=== PATIENT | male | born 1945 | race Caucasian/White ===

== ENCOUNTER 2017-04-07 14:10 | Emergency (ER) | payer SELFPAY ==
[~2017-04-07] VITALS: Ht 167.6 cm; Wt 124.6 kg
[2017-04-07 14:23] VITALS: BP 146/82; PULSE 97; TEMP 36.8; O2SAT 96; Ht 167.6 cm; Wt 124.6 kg
== END 2017-04-07 15:50 | disposition left against medical advice (07) ==
LOC: C.EDB 14:13
DX: M79.671 Pain in right foot (principal); J02.9 Acute pharyngitis, unspecified; R51 Headache

== ENCOUNTER 2020-12-08 14:24 | Inpatient (IN) ==
[2020-12-08] MEDS ORDERED: SODIUM CHLORIDE 0.9% 1000ML 1,000 ML IV ONE (17:35)
--- NOTE | 2020-12-08 17:40 | Emergency Department Note ---
Impression & Plan AMS (altered mental status), Atrial tachycardia, Fall ED Provider Note NAME: HEIDE WHITE AGE: 75 SEX: M : 1945 ARRIVES VIA: Walk-In INFORMANT: Patient, Sister in law ED PROVIDER(S): Piter Dowd DO CHIEF COMPLAINT: Fever, confusion and weakness HPI: Patient is a 75-year-old male who presents the ER as he went over to his [id number]'s house on Tuesday. He was confused. She sent him back to his house and when she got over there he was laying on the ground confused. She found him to be febrile at 102. She got back into the house to cool down and he improved. He is still been persistently confused. He denies any headache or change in vision. No neck pain. No chest pain. No cough or runny nose. No shortness of breath. No belly pain, or nausea, vomiting, or diarrhea. No dysuria, urgency, or frequency. No other exacerbating or remitting factors. Sister notes that intermittently he becomes very shaky. This is abnormal for him as well. ROS: See above HPI for pertinent positives & negatives. A total of 10 systems reviewed and were otherwise negative. PAST MEDICAL HISTORY:See Below PAST SURGICAL HISTORY:See Below FAMILY HISTORY:See Below SOCIAL HISTORY:See Below HOME MEDICATIONS:See Below ALLERGIES:See Below VITALS:See Below PHYSICAL EXAMINATION: GENERAL: Sitting up in bed, alert, disheveled, chronically ill-appearing, shaky HEAD: NC/AT EYE EXAM: normal conjunctiva. PERRL and EOM's grossly intact. OROPHARYNX: no exudate, no erythema, lips, buccal mucosa, and tongue normal and mucous membranes are moist NECK: supple, no nuchal rigidity, no adenopathy, non-tender LUNGS: Clear to auscultation. Normal chest wall mechanics HEART: no murmurs, S1 normal and S2 normal ABDOMEN: abdomen soft, non-tender, normo-active bowel sounds, no masses, no rebound or guarding. BACK: Back is symmetrical on inspection and there is no deformity, no midline tenderness, no CVA tenderness. SKIN: no rashes and no bruising UPPER EXTREMITIES: upper extremities are grossly normal. LOWER EXTREMITIES: No pitting edema. NEURO EXAM: Oriented to person, not place or year moving all extremities, cranial nerves II-XII intact, normal speech, no weakness of arms, no weakness of legs. No drift. Finger to nose intact. Gross sensation intact. MEDICAL DECISION MAKING: Patient is a 75-year-old male who presents the ER for the above-stated complaint. IV was established blood work was obtained. Labs show no si gnificant anemia. INR was unremarkable.Lactate was 2. LFTs bilirubin troponin was negative. Pro-Chris was normal. UA was clean. Lyme Covid was negative. CT head and abdomen pelvis on room air chest x-ray unremarkable. As he is worsening confusion patient was given IV fluids. He was given a dose of Ativan. He was discussed with the hospitalist as I felt it was unsafe for him to go home with the worsening confusion and being found outside previously. Triage Nursing notes reviewed. Limited review of prior medical records performed Vital Signs: reviewed and remarkable for no significant abnormalities Differential diagnosis: Infection, dehydration, metabolic abnormality, hypo/hyperglycemia, electrolyte disturbance, anemia, hypoxia, cardiac sources, intracerebral event, toxicologic, neurologic, as well as other pathologies. ER treatment provided: See below Diagnostics interpreted by me: ECG: Sinus rhythm rate 89 Left axis No PVCs QTC 433 Poor baseline Cardiac Monitoring: An order was placed for continuous cardiac monitoring. The monitor shows a rate of 89 with sinus rhythm. Laboratory studies: As stated above and show below. Imaging studies: See below Consultation(s): Discussed with the hospitalist for further evaluation Procedures: none Critical Care: None Past Med/Surg History Social History Smoking Status: Never smoker Feels Safe at Home: Yes Allergies Allergies Allergy/AdvReac Type Severity Reaction Status Date / Time No Known Allergies Allergy Unverified 12/08/20 18:19 Home Meds Home Medications Medication Instructions Recorded Confirmed atorvastatin 20 mg tablet 20 mg PO QPM 12/08/20 12/08/20 fluticasone propionate 50 2 spray INTRANASAL DAILY 12/08/20 12/08/20 mcg/actuation nasal spray,suspension furosemide 40 mg tablet 40 mg PO BID 12/08/20 12/08/20 ibuprofen 200 mg tablet 200 mg PO AMPM 12/08/20 12/08/20 levothyroxine 125 mcg tablet 125 mcg PO QAM 12/08/20 12/08/20 losartan 25 mg tablet 25 mg PO QPM 12/08/20 12/08/20 mfajermlgdqw-wix-hyvor acid-vit 1 tab PO QAM 12/08/20 12/08/20 K-lycop 400 mcg-20 mcg-370 mcg tablet (One-A-Day Men's 50 Plus) potassium chloride 20 mEq 20 meq PO QAM 12/08/20 12/08/20 tablet,extended release(part/cryst) triamterene 75 0.5 tab PO QAM 12/08/20 12/08/20 mg-hydrochlorothiazide 50 mg tablet Results & Data (ED) Vital Signs Vital Signs - 24 hr 12/08/20 15:26 12/08/20 17:36 12/08/20 18:06 Temperature 36.8 C Temperature Source Skin Pulse Rate 81 Pulse Rate from SpO2 Sensor Respiratory Rate 18 Respiratory Effort / Characteristics Labored Non-Labored Blood Pressure 141/73 H Blood Pressure Mean 95 80 Pulse Oximetry 97 Oxygen Delivery Method Room Air Sepsis Recent Fever Within 48 Hours No Sepsis New/Unexplained Change in Mental Status No Sepsis Action Taken by Nursing No Action Required 12/08/20 18:30 12/08/20 18:36 12/08/20 19:02 Temperature Temperature Source Pulse Rate 103 H 106 H Pulse Rate from SpO2 Sensor Respiratory Rate 32 H 20 Respiratory Effort / Characteristics Non-Labored Blood Pressure 161/108 H Blood Pressure Mean 125 Pulse Oximetry Oxygen Delivery Method Sepsis Recent Fever Within 48 Hours Sepsis New/Unexplained Change in Mental Status Sepsis Action Taken by Nursing 12/08/20 19:06 12/08/20 19:19 12/08/20 19:31 Temperature Temperature Source Pulse Rate 107 H 105 H Pulse Rate from SpO2 Sensor 105 H Respiratory Rate 17 23 Respiratory Effort / Characteristics Non-Labored Blood Pressure 127/61 Blood Pressure Mean 83 Pulse Oximetry 94 Oxygen Delivery Method Sepsis Recent Fever Within 48 Hours Sepsis New/Unexplained Change in Mental Status Sepsis Action Taken by Nursing 12/08/20 19:36 12/08/20 19:46 12/08/20 20:06 Temperature Temperature Source Pulse Rate 107 H Pulse Rate from SpO2 Sensor 104 H Respiratory Rate 20 Respiratory Effort / Characteristics Non-Labored Non-Labored Blood Pressure 102/80 Blood Pressure Mean 87 Pulse Oximetry 94 Oxygen Delivery Method Sepsis Recent Fever Within 48 Hours Sepsis New/Unexplained Change in Mental Status Sepsis Action Taken by Nursing 12/08/20 20:08 12/08/20 20:28 12/08/20 20:30 Temperature Temperature Source Pulse Rate 155 H 108 H 104 H Pulse Rate from SpO2 Sensor Respiratory Rate 23 22 20 Respiratory Effort / Characteristics Non-Labored Blood Pressure Blood Pressure Mean Pulse Oximetry Oxygen Delivery Method Sepsis Recent Fever Within 48 Hours Sepsis New/Unexplained Change in Mental Status Sepsis Action Taken by Nursing 12/08/20 20:45 12/08/20 21:00 12/08/20 21:02 Temperature Temperature Source Pulse Rate 100 H 98 H Pulse Rate from SpO2 Sensor 99 H Respiratory Rate 22 15 Respiratory Effort / Characteristics Non-Labored Blood Pressure 94/71 L Blood Pressure Mean 78 Pulse Oximetry 95 Oxygen Delivery Method Sepsis Recent Fever Within 48 Hours Sepsis New/Unexplained Change in Mental Status Sepsis Action Taken by Nursing 12/08/20 21:18 12/08/20 21:30 12/08/20 21:48 Temperature Temperature Source Pulse Rate 106 H 95 H 98 H Pulse Rate from SpO2 Sensor 103 H 92 H Respiratory Rate 18 25 H 20 Respiratory Effort / Characteristics Blood Pressure Blood Pressure Mean Pulse Oximetry 95 95 Oxygen Delivery Method Sepsis Recent Fever Within 48 Hours Sepsis New/Unexplained Change in Mental Status Sepsis Action Taken by Nursing 12/08/20 22:00 12/08/20 22:15 12/08/20 22:31 Temperature Temperature Source Pulse Rate 142 H 97 H 100 H Pulse Rate from SpO2 Sensor 98 H 100 H Respiratory Rate 22 25 H 16 Respiratory Effort / Characteristics Blood Pressure 143/72 H Blood Pressure Mean 95 Pulse Oximetry 94 94 Oxygen Delivery Method Sepsis Recent Fever Within 48 Hours Sepsis New/Unexplained Change in Mental Status Sepsis Action Taken by Nursing 12/08/20 22:47 Temperature Temperature Source Pulse Rate 103 H Pulse Rate from SpO2 Sensor 104 H Respiratory Rate 41 H Respiratory Effort / Characteristics Blood Pressure 148/74 H Blood Pressure Mean 98 Pulse Oximetry 96 Oxygen Delivery Method Sepsis Recent Fever Within 48 Hours Sepsis New/Unexplained Change in Mental Status Sepsis Action Taken by Nursing Laboratory Data Result diagrams: 12/08/20 19:01 12/08/20 19:01 Lab Results 12/08/20 12/08/20 12/08/20 Range/Units 17:51 17:51 18:30 WBC (4.8-10.8) K/uL RBC (4.7-6.1) M/uL Hgb (14.0-18.0) g/dL Hct (42-52) % MCV (80-100) fL MCH (25-34) pg MCHC (32-36) g/dL RDW Std Deviation (36.4-46.3) fL RDW Coeff of [place] (11.5-14.5) % Plt Count (130-400) K/uL MPV (7.4-10.4) fL Immature Gran % (Auto) % Neut % (Auto) % Lymph % (Auto) % [place] % (Auto) % Eos % (Auto) % Baso % (Auto) % Neut # (Auto) (1.4-6.5) K/uL Lymph # (Auto) (1.2-3.4) K/uL [place] # (Auto) (0.11-0.59) K/uL Eos # (Auto) (0-0.5) K/uL Baso # (Auto) (0-0.2) K/uL Immature Gran # (Auto) (0.00-0.02) K/uL PT (9.0-12.0) Seconds INR (0.9-1.1) APTT (21.0-31.0) Seconds PTT Ratio Sodium (136-145) mmol/L Potassium (3.5-5.1) mmol/L Chloride (98-107) mmol/L Carbon Dioxide (21-32) mmol/L Anion Gap (3-11) BUN (7-18) mg/dl Creatinine (0.6-1.4) mg/dl Est Cr Clr Drug Dosing ml/min Est GFR ( Amer) ml/min Est GFR (Non-Af Amer) ml/min BUN/Creatinine Ratio (10-20) Glucose (70-99) mg/dl Lactate (0.4-2.0) mmol/L Calcium (8.5-10.1) mg/dl Magnesium (1.8-2.4) mg/dl Total Bilirubin (0.2-1) mg/dl AST (15-37) U/L ALT (12-78) U/L Alkaline Phosphatase (45-117) U/L Troponin I (0-0.045) ng/ml Total Protein (6.4-8.2) gm/dl Albumin (3.4-5.0) gm/dl Globulin (2.5-4.0) gm/dl Albumin/Globulin Ratio (0.9-2) Procalcitonin (0-0.5) ng/ml Urine Color Yellow Urine Appearance Clear (Clear) Urine pH 6.5 (4.5-7.5) Ur Specific [place] 1.016 (1.000-1.030) Urine Protein Negative (Negative) Urine Glucose (UA) Negative (Negative) Urine Ketones Negative (Negative) Urine Blood 1+ H (Negative) Urine Nitrite Negative (Negative) Urine Bilirubin Negative (Negative) Urine Urobilinogen Negative (Negative) Ur Leukocyte Esterase Negative (Negative) Urine WBC (Auto) 0 (0-5) /hpf Urine RBC (Auto) 5-10 H (0-4) /hpf U Hyaline Cast (Auto) 1-5 (0-5) /lpf U Epithel Cells (Auto) 5-10 H (0-5) /lpf Urine Bacteria (Auto) Negative (Negative) Lyme Disease IgG Ab (Negative) Lyme Disease IgM Ab (Negative) COVID-19 Eval Order Covid19 at [facility] SARS-CoV-2 (PCR) NEGATIVE (Negative) 12/08/20 12/08/20 12/08/20 Range/Units 19:01 19:01 19:01 WBC 8.94 (4.8-10.8) K/uL RBC 4.44 L (4.7-6.1) M/uL Hgb 14.4 (14.0-18.0) g/dL Hct 42.0 (42-52) % MCV 94.6 (80-100) fL MCH 32.4 (25-34) pg MCHC 34.3 (32-36) g/dL RDW Std Deviation 50.3 H (36.4-46.3) fL RDW Coeff of [place] 14.4 (11.5-14.5) % Plt Count 142 (130-400) K/uL MPV 10.4 (7.4-10.4) fL Immature Gran % (Auto) 0.1 % Neut % (Auto) 83.4 % Lymph % (Auto) 5.5 % [place] % (Auto) 9.7 % Eos % (Auto) 1.2 % Baso % (Auto) 0.1 % Neut # (Auto) 7.45 H (1.4-6.5) K/uL Lymph # (Auto) 0.49 L (1.2-3.4) K/uL [place] # (Auto) 0.87 H (0.11-0.59) K/uL Eos # (Auto) 0.11 (0-0.5) K/uL Baso # (Auto) 0.01 (0-0.2) K/uL Immature Gran # (Auto) 0.01 (0.00-0.02) K/uL PT (9.0-12.0) Seconds INR (0.9-1.1) APTT (21.0-31.0) Seconds PTT Ratio Sodium 137 (136-145) mmol/L Potassium 4.0 (3.5-5.1) mmol/L Chloride 101 (98-107) mmol/L Carbon Dioxide 31 (21-32) mmol/L Anion Gap 5.0 (3-11) BUN 31 H (7-18) mg/dl Creatinine 1.22 (0.6-1.4) mg/dl Est Cr Clr Drug Dosing 64.9 ml/min Est GFR ( Amer) 67.7 ml/min Est GFR (Non-Af Amer) 58.5 ml/min BUN/Creatinine Ratio 25.4 H (10-20) Glucose 133 H (70-99) mg/dl Lactate (0.4-2.0) mmol/L Calcium 8.9 (8.5-10.1) mg/dl Magnesium 2.2 (1.8-2.4) mg/dl Total Bilirubin 0.5 (0.2-1) mg/dl AST 54 H (15-37) U/L ALT 29 (12-78) U/L Alkaline Phosphatase 75 (45-117) U/L Troponin I < 0.015 (0-0.045) ng/ml Total Protein 7.6 (6.4-8.2) gm/dl Albumin 3.4 (3.4-5.0) gm/dl Globulin 4.2 H (2.5-4.0) gm/dl Albumin/Globulin Ratio 0.8 L (0.9-2) Procalcitonin 0.34 (0-0.5) ng/ml Urine Color Urine Appearance (Clear) Urine pH (4.5-7.5) Ur Specific [place] (1.000-1.030) Urine Protein (Negative) Urine Glucose (UA) (Negative) Urine Ketones (Negative) Urine Blood (Negative) Urine Nitrite (Negative) Urine Bilirubin (Negative) Urine Urobilinogen (Negative) Ur Leukocyte Esterase (Negative) Urine WBC (Auto) (0-5) /hpf Urine RBC (Auto) (0-4) /hpf U Hyaline Cast (Auto) (0-5) /lpf U Epithel Cells (Auto) (0-5) /lpf Urine Bacteria (Auto) (Negative) Lyme Disease IgG Ab Negative (Negative) Lyme Disease IgM Ab Negative (Negative) COVID-19 Eval Order SARS-CoV-2 (PCR) (Negative) 12/08/20 12/08/20 Range/Units 19:01 19:01 WBC (4.8-10.8) K/uL RBC (4.7-6.1) M/uL Hgb (14.0-18.0) g/dL Hct (42-52) % MCV (80-100) fL MCH (25-34) pg MCHC (32-36) g/dL RDW Std Deviation (36.4-46.3) fL RDW Coeff of [place] (11.5-14.5) % Plt Count (130-400) K/uL MPV (7.4-10.4) fL Immature Gran % (Auto) % Neut % (Auto) % Lymph % (Auto) % [place] % (Auto) % Eos % (Auto) % Baso % (Auto) % Neut # (Auto) (1.4-6.5) K/uL Lymph # (Auto) (1.2-3.4) K/uL [place] # (Auto) (0.11-0.59) K/uL Eos # (Auto) (0-0.5) K/uL Baso # (Auto) (0-0.2) K/uL Immature Gran # (Auto) (0.00-0.02) K/uL PT 9.8 (9.0-12.0) Seconds INR 1.0 (0.9-1.1) APTT 24.7 (21.0-31.0) Seconds PTT Ratio 0.9 Sodium (136-145) mmol/L Potassium (3.5-5.1) mmol/L Chloride (98-107) mmol/L Carbon Dioxide (21-32) mmol/L Anion Gap (3-11) BUN (7-18) mg/dl Creatinine (0.6-1.4) mg/dl Est Cr Clr Drug Dosing ml/min Est GFR ( Amer) ml/min Est GFR (Non-Af Amer) ml/min BUN/Creatinine Ratio (10-20) Glucose (70-99) mg/dl Lactate 2.0 (0.4-2.0) mmol/L Calcium (8.5-10.1) mg/dl Magnesium (1.8-2.4) mg/dl Total Bilirubin (0.2-1) mg/dl AST (15-37) U/L ALT (12-78) U/L Alkaline Phosphatase (45-117) U/L Troponin I (0-0.045) ng/ml Total Protein (6.4-8.2) gm/dl Albumin (3.4-5.0) gm/dl Globulin (2.5-4.0) gm/dl Albumin/Globulin Ratio (0.9-2) Procalcitonin (0-0.5) ng/ml Urine Color Urine Appearance (Clear) Urine pH (4.5-7.5) Ur Specific [place] (1.000-1.030) Urine Protein (Negative) Urine Glucose (UA) (Negative) Urine Ketones (Negative) Urine Blood (Negative) Urine Nitrite (Negative) Urine Bilirubin (Negative) Urine Urobilinogen (Negative) Ur Leukocyte Esterase (Negative) Urine WBC (Auto) (0-5) /hpf Urine RBC (Auto) (0-4) /hpf U Hyaline Cast (Auto) (0-5) /lpf U Epithel Cells (Auto) (0-5) /lpf Urine Bacteria (Auto) (Negative) Lyme Disease IgG Ab (Negative) Lyme Disease IgM Ab (Negative) COVID-19 Eval Order SARS-CoV-2 (PCR) (Negative) Administered Medications Discontinued Medications Sodium Chloride (Nss 1000ml) 1,000 mls @ 999 mls/hr IV .[id number] ONE Stop: 12/08/20 18:35 Last Infusion: 12/08/20 20:30 Dose: 999 mls/hr Documented by: [id number] Admin: 12/08/20 19:29 Dose: 999 mls/hr Documented by: [id number] Lorazepam (Ativan) 1 mg in 2 mls @ 2 mls/min IV NOW STA Stop: 12/08/20 20:41 Last Admin: 12/08/20 20:48 Dose: 2 mls/min Documented by: [id number] Ioversol (Optiray 320 100ml) 94 ml IV ONCE ONE Stop: 12/08/20 20:05 Last Admin: 12/08/20 20:04 Dose: 94 ml Documented by: [id number] Imaging Data Radiologist's Impression: Abdomen/Pelvis CT 12/08/20 17:35 CT SCAN OF THE ABDOMEN AND PELVIS WITH IV CONTRAST CLINICAL HISTORY: Sepsis. COMPARISON STUDY: No priors. TECHNIQUE: Following the IV administration of 94 cc of Optiray 320, CT scan of the abdomen and pelvis is performed from the lung bases to the proximal femora. Images are reviewed in the axial, sagittal, and coronal planes. IV contrast was administered without complication. A dose lowering technique was utilized adhering to the principles of ALARA. The examination is degraded by motion artifact, as well as by streak artifact from the arms which could not be elevated above the abdomen. FINDINGS: Lung bases: The heart is normal in size and without pericardial effusion. The lung bases are clear. There is a small hiatal hernia. Liver: The contrast-enhanced liver is normal in size, contour, and attenuation. There is no intrahepatic biliary ductal dilatation. The hepatic veins and portal veins are patent. Gallbladder: Unremarkable. Spleen: Normal in size and attenuation. Pancreas: Unremarkable. Adrenal glands: Unremarkable. Kidneys: The contrast enhanced kidneys demonstrate mild cortical atrophy and are without hydronephrosis. The kidneys enhance symmetrically. Abdominal vasculature: The abdominal aorta is normal in course and caliber noting advanced atherosclerotic calcification. Bowel: There is no bowel obstruction. Mild fecal retention is seen throughout the colon. The appendix is well-visualized and normal. Peritoneum: There is no intraperitoneal free air or abdominal ascites. Lymphadenopathy: None. Pelvic viscera: The prostate gland is mildly enlarged and heterogeneous noting median lobe hypertrophy. The bladder wall appears thickened and trabeculated indicating chronic outlet obstruction. Skeletal structures: The skeletal structures are osteopenic. There is moderate to advanced lumbosacral spondylosis. No lytic or blastic lesions are seen. IMPRESSION: 1. Significantly streak and motion compromised examination. 2. No acute infectious or inflammatory findings are identified in the abdomen or pelvis. 3. No bowel obstruction. 4. Additional findings as above. ACT 112: Negative or not required by law. Electronically signed by: German Adkins M.D. 12/08/2020 8:[address] 12/08/20 17:35 CT SCAN OF THE BRAIN WITHOUT IV CONTRAST CLINICAL HISTORY: Generalized weakness. Change in mental status. COMPARISON STUDY: No priors. TECHNIQUE: Unenhanced axial CT scan of the brain is performed from the vertex to the skull base. A dose lowering technique was utilized adhering to the prin ciples of ERIK. CT DOSE: 2045.93 mGy.cm FINDINGS: Brain parenchyma: There are age-related involutional changes noting moderate patchy subcortical and periventricular microangiopathic change. There is no hemorrhage, mass effect, or evidence of acute territorial ischemia by CT criteria. Mcguire-white matter differentiation is preserved. No extra-axial fluid collection is seen. Ventricles, sulci, cisterns: Prominent secondary to involutional change. Intracranial vasculature: There is atherosclerotic calcification of the cavernous carotid and vertebral arteries. Calvarium: Unremarkable. Sinuses and mastoids: The visualized paranasal sinuses are clear. The mastoid air cells are well pneumatized. Orbits: The bony orbits are grossly intact. IMPRESSION: There is no hemorrhage, mass effect, or evidence of acute territorial ischemia by CT criteria. ACT 112: Negative or not required by law. Electronically signed by: German Adkins M.D. 12/08/2020 8:37 PM Chest X-Ray 12/08/20 17:36 SINGLE VIEW CHEST CLINICAL HISTORY: Sepsis. FINDINGS: 2 AP, portable, semierect chest radiographs are obtained. No prior studies are available for comparison at the time of dictation. The examination is degraded by portable technique and patient rotation. The heart is enlarged. The pulmonary vasculature is noncongested. Scarring/atelectasis is noted at the lung bases. No airspace consolidation or large pleural effusion is identified. No pneumothorax is seen. The skeletal structures are osteopenic. The bony thorax is grossly intact. IMPRESSION: Cardiomegaly with no active disease in the chest. ACT 112: Negative or not required by law. Electronically signed by: German Adkins M.D. 12/08/2020 6:48 PM Discharge Plan Visit Data Chief Complaint: Fall Stated Complaint: FALL (SAT),FEVER,CONFUSION,SMALL BUMP ON HEAD ED Provider: Piter Dowd Discharge Problem: AMS (altered mental status), Atrial tachycardia, Fall Forms Stand Alone Forms: My [facility] Prescriptions Prescriptions: No Action furosemide 40 mg tablet 40 mg PO BID RF: 0 atorvastatin 20 mg tablet 20 mg PO QPM RF: 0 potassium chloride 20 mEq tablet,ER particles/crystals 20 meq PO QAM RF: 0 levothyroxine 125 mcg tablet 125 mcg PO QAM RF: 0 losartan 25 mg tablet 25 mg PO QPM RF: 0 triamterene-hydrochlorothiazid 75-50 mg tablet 0.5 tab PO QAM RF: 0 fluticasone propionate 50 mcg/actuation spray,suspension 2 spray INTRANASAL DAILY RF: 0 ibuprofen 200 mg Tablet 200 mg PO AMPM RF: 0 One-A-Day Men's 50 Plus 400-20-370 mcg Tablet 1 tab PO QAM RF: 0 Referrals Referrals: Shari Rosenbaum MD [Primary Care Provider] - Discharge Problem: AMS (altered mental status) Qualifiers: Altered mental status type: unspecified Qualified Code(s): R41.82 - Altered mental status, unspecified Fall Qualifiers: Encounter type: initial encounter Qualified Code(s): W19.XXXA - Unspecified fall, initial encounter
--- NOTE | 2020-12-08 18:50 | XRay Report ---
SINGLE VIEW CHEST CLINICAL HISTORY: Sepsis. FINDINGS: 2 AP, portable, semierect chest radiographs are obtained. No prior studies are available fo r comparison at the time of dictation. The examination is degraded by portable technique and patient rotation. The heart is enlarged. The pulmonary vasculature is noncongested. Scarring/atelectasis is noted at the lung bases. No airspace consolidation or large pleural effusion is identified. No pneumo thorax is seen. The skeletal structures are osteopenic. The bony thorax is grossly intact. IMPRESSION: Cardiomegaly with no active disease in the chest. ACT 112: Negative or not required by law. Electronically signed by: German Adkins M.D. 12/08/2020 6:48 PM
[2020-12-08 19:15] LABS: Basophils # (auto) 0.01 K/uL (0-0.2); Basophils % (auto) 0.1 %; Eosinophils # (auto) 0.11 K/uL (0-0.5); Eosinophils % (auto) 1.2 %; Hemoglobin 14.4 g/dL (14.0-18.0); Immature Granulocytes # (auto) 0.01 K/uL (0.00-0.02); Immature Granulocytes % (auto) 0.1 %; Lymphocytes # (auto) 0.49 K/uL (1.2-3.4); Lymphocytes % (auto) 5.5 %; Mean Corpuscular Hemoglobin 32.4 pg (25-34); Mean Corpuscular Hgb Conc 34.3 g/dL (32-36); Mean Corpuscular Volume 94.6 fL (80-100); Mean Platelet Volume 10.4 fL (7.4-10.4); Monocytes # (auto) 0.87 K/uL (0.11-0.59); Monocytes % (auto) 9.7 %; Neutrophils # (auto) 7.45 K/uL (1.4-6.5); Neutrophils % (auto) 83.4 %; Platelet Count 142 K/uL (130-400); RDW Coefficient of Variation 14.4 % (11.5-14.5); RDW Standard Deviation 50.3 fL (36.4-46.3); Red Blood Count 4.44 M/uL (4.7-6.1); White Blood Count 8.94 K/uL (4.8-10.8)
[2020-12-08 19:29] LABS: Partial Thromboplastin Ratio 0.9; Partial Thromboplastin Time 24.7 Seconds (21.0-31.0); Prothrombin Time 9.8 Seconds (9.0-12.0)
[2020-12-08 19:34] LABS: Alanine Aminotransferase 29 U/L (12-78); Albumin Level 3.4 gm/dl (3.4-5.0); Aspartate Aminotransferase 54 U/L (15-37); BUN Creatinine Ratio 25.4 (10-20); Blood Urea Nitrogen 31 mg/dl (7-18); Calcium 8.9 mg/dl (8.5-10.1); Carbon Dioxide 31 mmol/L (21-32); Chloride 101 mmol/L (98-107); Creatinine Clr Calc Pharmacy 64.9 ml/min; Est GFR (African American) 67.7 ml/min; Est GFR (Non-African American) 58.5 ml/min; Glucose 133 mg/dl (70-99); Magnesium 2.2 mg/dl (1.8-2.4); Sodium 137 mmol/L (136-145)
[2020-12-08 19:39] LABS: Albumin Globulin Ratio 0.8 (0.9-2); Alkaline Phosphatase 75 U/L (45-117); Bilirubin,Total 0.5 mg/dl (0.2-1); Globulin 4.2 gm/dl (2.5-4.0); Total Protein 7.6 gm/dl (6.4-8.2); Troponin I < 0.015 ng/ml (0-0.045)
[2020-12-08 19:50] LABS: Appearance Urine Clear (Clear); Bacteria Urine Automated Negative (Negative); Bilirubin Urine Negative (Negative); Blood Urine 1+ (Negative); Color Urine Yellow; Glucose Urine UA Negative (Negative); Ketones Urine Negative (Negative); Leukocyte Esterase Urine Negative (Negative); Nitrite Urine Negative (Negative); Protein Urine Negative (Negative); Specific Gravity Urine 1.016 (1.000-1.030); Urobilinogen Urine Negative (Negative); WBC Urine Automated 0 /hpf (0-5); pH Urine 6.5 (4.5-7.5)
[2020-12-08 20:02] LABS: Procalcitonin 0.34 ng/ml (0-0.5)
[2020-12-08] MEDS ORDERED: OPTIRAY 320 100ml IV ONE (20:04)
[2020-12-08 20:08] LABS: Lyme Ab IgG w/WB Rflx Negative (Negative); Lyme Ab IgM w/WB Rflx Negative (Negative)
--- NOTE | 2020-12-08 20:39 | CT Scan Report ---
CT SCAN OF THE BRAIN WITHOUT IV CONTRAST CLINICAL HISTORY: Generalized weakness. Change in mental status. COMPARISON STUDY: No priors. TECHNIQUE: Unenhanced axial CT scan of the brain is performed from the vertex to the skull base. A do se lowering technique was utilized adhering to the principles of ALARA. CT DOSE: 2045.93 mGy.cm FINDINGS: Brain parenchyma: There are age-related involutional changes noting moderate patchy subcortical and periventricular microangiopathic change. There is no hemorrhage, mass effect, or evidence of acute te rritorial ischemia by CT criteria. Mcguire-white matter differentiation is preserved. No extra-axial flu id collection is seen. Ventricles, sulci, cisterns: Prominent secondary to involutional change. Intracranial vasculature: There is atherosclerotic calcification of the cavernous carotid and vertebr al arteries. Calvarium: Unremarkable. Sinuses and mastoids: The visualized paranasal sinuses are clear. The mastoid air cells are well pneu matized. Orbits: The bony orbits are grossly intact. IMPRESSION: There is no hemorrhage, mass effect, or evidence of acute territorial ischemia by CT nuzhat rosas. ACT 112: Negative or not required by law. Electronically signed by: German Adkins M.D. 12/08/2020 8:37 PM
[2020-12-08] MEDS ORDERED: LORazepam 1 MG/2 ML VIAL IV STA (20:40)
--- NOTE | 2020-12-08 20:51 | CT Scan Report ---
CT SCAN OF THE ABDOMEN AND PELVIS WITH IV CONTRAST CLINICAL HISTORY: Sepsis. COMPARISON STUDY: No priors. TECHNIQUE: Following the IV administration of 94 cc of Optiray 320, CT scan of the abdomen and pelvi s is performed from the lung bases to the proximal femora. Images are reviewed in the axial, sagittal , and coronal planes. IV contrast was administered without complication. A dose lowering technique wa s utilized adhering to the principles of ALARA. The examination is degraded by motion artifact, as we ll as by streak artifact from the arms which could not be elevated above the abdomen. FINDINGS: Lung bases: The heart is normal in size and without pericardial effusion. The lung bases are clear. T here is a small hiatal hernia. Liver: The contrast-enhanced liver is normal in size, contour, and attenuation. There is no intrahepa tic biliary ductal dilatation. The hepatic veins and portal veins are patent. Gallbladder: Unremarkable. Spleen: Normal in size and attenuation. Pancreas: Unremarkable. Adrenal glands: Unremarkable. Kidneys: The contrast enhanced kidneys demonstrate mild cortical atrophy and are without hydronephros is. The kidneys enhance symmetrically. Abdominal vasculature: The abdominal aorta is normal in course and caliber noting advanced atheroscle rotic calcification. Bowel: There is no bowel obstruction. Mild fecal retention is seen throughout the colon. The appendix is well-visualized and normal. Peritoneum: There is no intraperitoneal free air or abdominal ascites. Lymphadenopathy: None. Pelvic viscera: The prostate gland is mildly enlarged and heterogeneous noting median lobe hypertroph y. The bladder wall appears thickened and trabeculated indicating chronic outlet obstruction. Skeletal structures: The skeletal structures are osteopenic. There is moderate to advanced lumbosacra l spondylosis. No lytic or blastic lesions are seen. IMPRESSION: 1. Significantly streak and motion compromised examination. 2. No acute infectious or inflammatory findings are identified in the abdomen or pelvis. 3. No bowel obstruction. 4. Additional findings as above. ACT 112: Negative or not required by law. Electronically signed by: German Adkins M.D. 12/08/2020 8:50 PM
[2020-12-09] MEDS ORDERED: LORazepam 2 MG/4 ML VIAL ONE (01:09)
[2020-12-09] MEDS ORDERED: LORazepam 1 MG/2 ML VIAL IV STA (01:11)
[2020-12-09] MEDS ORDERED: POLYETHYLENE (MIRALAX) 17 GM PACK PO PRN (02:31)
[2020-12-09] MEDS ORDERED: PIPERACILL/TAZOBAC CONSULT ACTIVE PRN (02:31)
[2020-12-09] MEDS ORDERED: NITROGLYCERIN SL 0.4 MG/TAB TAB SL PRN (02:31)
--- NOTE | 2020-12-09 02:37 | History and Physical Report ---
DATE OF ADMISSION: 12/08/2020. CHIEF COMPLAINT: Confusion and fall. HISTORY OF PRESENT ILLNESS: A 75-year-old male with past medical history significant for hypothyroidism, impaired fasting glucose, sleep apnea, emphysema, hypertension, venous insufficiency, history of adenomatous polyp of colon, who was brought in by his bdmpjo-pp-kcl because of confusion and fall. As per the wsuptp-it-qpe, the patient lives alone and his ambulatory status is not that great, does not use any walker or cane. The sohyec-qb-vpa lives about [address] his house. On Tuesday he drove to wuhrzr-aw-cyw's house and he seemed confused, did not make sense. She told him to go back to his house, but she followed him and she found him fall on the driveway. Then he was able to climb steps and go inside the house. As per svuayi-dp-dad, the patient does not remember falling down, but he remembers going into the house and she found him to have a high temperature of 102 degrees. She kept a cool blanket and cooled him and he seemed to be okay, though he was not back to his usual baseline, but he was still somewhat confused, but he was much better. The next day, she and another nkxsgrr-vv-jdc and the patient went outside to eat dinner on Tuesday and he was mostly back to baseline, but he was still somewhat confused, but he seemed okay and again today on Tuesday again, he was more confused and that is the reason she brought him here. Here in the ER, he is afebrile. Can tell his name, does not know where he is. Sometimes he just talks, blabbers, does not make any sense, but he seemed to understand simple commands. Hemodynamically stable. No leukocytosis. Electrolytes are okay. Glucose is okay. Lactate is 2. Procalcitonin 0.34. Urinalysis, no obvious infection. Lyme screen negative. SARS-CoV-2 PCR negative. Chest x-ray, no acute findings. CT of the head, no acute findings. CT abdomen and pelvis with IV contrast, no acute findings. Could not get any history from the patient. As per the sister in law, there were no complaints of any pain. No complaint of chest pain or back pain or neck pain or abdominal pain. No nausea or vomiting. Does not have any diarrhea. His appetite was okay and he was swallowing ok. ALLERGIES: No known drug allergies. PAST MEDICAL HISTORY: As mentioned above. PAST SURGICAL HISTORY: Colonoscopies, tonsillectomy. MEDICATIONS: The patient is on losartan, atorvastatin 20 mg p.o. daily, Flonase 2 sprays intranasal daily, Lasix 40 mg p.o. b.i.d., ibuprofen daily, levothyroxine 125 mcg p.o. daily, losartan 25 mg p.o. daily, multivitamins 1 tablet p.o. daily, potassium chloride 20 mEq p.o. daily, triamterene/hydrochlorothiazide 75/50 mg half tablet daily. FAMILY HISTORY: Significant for no family history on file. SOCIAL HISTORY: , currently lives alone. Quit smoking in 1997, smoked 1 pack a day for 30 years. No alcohol use. No drug use. REVIEW OF SYSTEMS: Unobtainable at this time. PHYSICAL EXAMINATION: GENERAL: The patient is somewhat drowsy. Oriented to name only. VITAL SIGNS: Temperature 36.8, pulse 99, respiratory rate 25, blood pressure 134/82, oxygen 93% on room air. HEENT: Pupils equal, round and reactive to light. Oral mucosa moist. NECK: No JVD, no neck masses. CARDIOVASCULAR: S1 and S2 heard. Regular rate and rhythm. No murmur, no gallop. RESPIRATORY SYSTEM: Normal AP diameter. No accessory muscle use. No wheezing, no crackles. ABDOMEN: Soft, bowel sounds present, nontender, no distention. CENTRAL NERVOUS SYSTEM: Alert and awake, oriented to name only. Speech is sometimes garbled, does not make sense. Obeys simple commands. Moves extremities. EXTREMITIES: No edema, no erythema. LABORATORY DATA: WBC 8.9, hemoglobin 14.4, hematocrit 42, platelets 142. PT 10.8, INR 1, APTT 24.7. Sodium 137, potassium 4, chloride 101, bicarbonate 31, BUN 31, creatinine 1.2, serum glucose 133. Lactate 2, calcium 8.9, magnesium 2.2, total bilirubin 0.5, AST 54, ALT 39, alkaline phosphatase 75. Troponin I less than 0.015. Procalcitonin 0.34. Urinalysis negative. Lyme screen negative. SARS-CoV-2 PCR negative. IMAGING DATA: Chest x-ray, no acute findings. CT of the head, no acute findings. CT of abdomen and pelvis with contrast, no acute findings. EKG DATA: Poor quality EKG. Normal sinus rhythm with rate of 89, QTc 433. ASSESSMENT AND PLAN: This is a 75-year-old male, who presents with ongoing confusion and falls. 1. Confusion and falls: Etiology unclear. CT of the head and ct abd/pelvis is unremarkable. Labs look okay. No obvious source of infection. We will get ABGs, lactic acid, ammonia levels, thiamine levels, vitamin B12 and folate levels, and also get MRI scan of the head. Consult neurology in the a.m. Empirically start him on IV Zosyn. Will also order eeg. Follow the cultures. The patient has history of obstructive sleep apnea, but as per the bdgrmz-qy-drc, he is not using any CPAP at home or oxygen at home. Later on the floor he was having apneic episodes placed on cpap.Await neurology inputs 2. History of hypertension: Continue his losartan and Maxzide and Lasix. Monitor the blood pressure. 3. Hypothyroidism: On Synthroid. 4. History of venous insufficiency of lower extremities: On diuretics and potassium supplements and monitor. 5. History of emphysema: Not on any medications. We will monitor. 6. Impaired fasting glucose. Follow the HbA1c levels. 7. Deep venous thrombosis prophylaxis: We will place him on Lovenox for now. DISPOSITION: Closely monitor in the med tele. PT/OT prior to discharge. Social service to help with discharge planning. Level 1 full code. Job ID: [id number] MTDD
[2020-12-09] MEDS ORDERED: PIPERACILLIN/TAZOBACTAM 4.5 GM in DEXTROSE 5% 100 ML IV ONE (02:45)
[2020-12-09] MEDS: SODIUM CHLORIDE 0.9% 1000ML 1,000 ML IV SCH ×3 (02:49→21:23)
[2020-12-09] MEDS ORDERED: ACETAMINOPHEN 1000 MG/100 ML IV IV PRN (02:59)
[2020-12-09 03:10] LABS: Allen Test POS (Pos); Base Excess ABG 3.4 mEq/L (-9-1.8); HCO3 ABG 27 mmol/L (19-24); Oxygen Saturation ABG 96.5 % (90-95); PCO2 ABG 37 mmHg (35-46); PO2 ABG 79 mmHg (80-95); pH ABG 7.48 (7.35-7.45)
[2020-12-09] MEDS: ACETAMINOPHEN 1,000 MG/100 ML VIAL IV PRN (03:15)
[2020-12-09] MEDS: LEVOTHYROXINE SODIUM 125 MCG TABLET PO SCH (06:20)
[2020-12-09] MEDS: ENOXAPARIN INJ 40 MG/0.4 ML SYR SQ SCH (06:20)
[2020-12-09 06:45] LABS: Basophils # (auto) 0.01 K/uL (0-0.2); Basophils % (auto) 0.1 %; Eosinophils # (auto) 0.09 K/uL (0-0.5); Eosinophils % (auto) 1.3 %; Hematocrit (blood only) 38.9 % (42-52); Hemoglobin 13.1 g/dL (14.0-18.0); Immature Granulocytes # (auto) 0.01 K/uL (0.00-0.02); Immature Granulocytes % (auto) 0.1 %; Lymphocytes # (auto) 0.35 K/uL (1.2-3.4); Lymphocytes % (auto) 5.1 %; Mean Corpuscular Hgb Conc 33.7 g/dL (32-36); Mean Corpuscular Volume 95.1 fL (80-100); Mean Platelet Volume 10.2 fL (7.4-10.4); Monocytes # (auto) 0.76 K/uL (0.11-0.59); Monocytes % (auto) 11.1 %; Neutrophils # (auto) 5.63 K/uL (1.4-6.5); Neutrophils % (auto) 82.3 %; Platelet Count 125 K/uL (130-400); RDW Coefficient of Variation 14.4 % (11.5-14.5); RDW Standard Deviation 50.8 fL (36.4-46.3); Red Blood Count 4.09 M/uL (4.7-6.1); White Blood Count 6.85 K/uL (4.8-10.8)
[2020-12-09 07:30] LABS: BUN Creatinine Ratio 22.8 (10-20); Calcium 8.2 mg/dl (8.5-10.1); Creatinine Clr Calc Pharmacy 73.3 ml/min; Est GFR (African American) 80.3 ml/min; Est GFR (Non-African American) 69.3 ml/min; Magnesium 2.3 mg/dl (1.8-2.4); Potassium 2.9 mmol/L (3.5-5.1)
[2020-12-09 07:36] LABS: Folate (Folic Acid) > 20.00 ng/ml (>5.38); Vitamin B12 936 pg/ml (193-986)
[2020-12-09] MEDS: FLUTICASONE PROPIONATE NA SPR 16 GM BTL SCH (08:33)
[2020-12-09] MEDS: NSS + 20MEQ KCL 20 MEQ/1,000 ML BAG IV SCH ×2 (08:33→16:32)
[2020-12-09] MEDS: POTASSIUM CHLORIDE CRTAB 20 MEQ TABCR PO SCH (08:34)
[2020-12-09] MEDS: TRIAMTERENE/HCTZ 37.5/25MG TAB PO SCH (08:34)
[2020-12-09] MEDS: FUROSEMIDE 40 MG TAB PO SCH ×2 (08:34→16:35)
[2020-12-09] MEDS: PIPERACILLIN/TAZOBACTAM 4.5 GM in DEXTROSE 5% 100 ML IV SCH ×2 (08:40→16:32)
[2020-12-09] MEDS ORDERED: MULTIVIT MIN FOLIC VIT K LYCOP PO SCH (09:00)
[2020-12-09] MEDS ORDERED: [UNRECOGNIZED DRUG - OTHER] PO SCH (09:00)
[2020-12-09 09:12] LABS: Phosphorus 3.7 mg/dl (2.5-4.9)
[2020-12-09] MEDS ORDERED: THIAMINE HCL 500 MG in 0.9 % SODIUM CHLORIDE 100 ML IV STA (09:50)
[2020-12-09 10:57] LABS: Thyroid Stimulating Hormone 1.26 uIu/ml (0.300-4.500)
[2020-12-09 12:21] LABS: Amphetamines+Metham, Urine Neg (Neg); Barbiturates, Urine Neg (Neg); Benzodiazepine, Urine Neg (Neg); Cocaine, Urine Neg (Neg); MDMA (Ecstacy), Urine Neg (Neg); Methadone, Urine Neg (Neg); Opiate, Urine Neg (Neg); Phencyclidine, Urine Neg (Neg)
--- NOTE | 2020-12-09 12:23 | Neurology Consultation ---
Date of Consultation December 09, 2020 Assessment & Plan (1) AMS (altered mental status): 1. MRI brain with and without -ordered but not completed 2. EEG- encephalopathy no seizure focus 3. if no other source of confusion found may need LP 4. TTE r/o cardiac source 5. toxic screen - may be late but might pickle sorter some OTC medication 6. appear to be improving somewhat. 7. cultures are pending 8. will need CTA head and neck - r/o vascular issues follow up with neurology 4-6 weeks, Elle Lo PAC (2) Fall: 1. PT/OT for discharge needs Supervising Physician Co-Signing Physician Notes I have seen and discussed above patient with Dr Ashu Diaz, neurology I have interviewed and examined this man and discussed his case with Elle Lo and reviewed the laboratory studies and imaging reports that are currently available The history suggests some form of febrile illness onset perhaps as long as a week or 2 ago as the patient does admit to taking kpzm-sur-fydqbpz medications for what he thought was the flu. This past Tuesday apparently appeared to be confused fell down had a temperature of 102 theoretically documented by his oeadry-pw-ycm and improved as his fever broke but then remained confused through the weekend has now been admitted to the hospital with negative CT scans of the head abdomen pelvis normal chest film and really unremarkable laboratory studies Toxicology screen has not been done We are awaiting an MRI An EEG shows normal rhythms with no potentially epileptiform patterns Exam shows what appears to be a low-grade agitated delirium with some perseveration yet once some preserved orientation to year and months that requires a lot of hesitation on his part to answer correctly He seems unaware of the pandemic, really is not sure where he is, knows his home is [place] and has some patchy memory for his szkmva-ey-feg's visits is falling down and then is quite confused about the temporal order of his illness but does recall going to the grocery store buying some snwi-mjk-epkdijk medications that he cannot recall and is adamant that he does not consume ethanol is a non-smoker and has not been ill other than the influenza-like illness He has no motor signs that I can come up with certainly is not somnolent denies any headaches no nuchal rigidity according to the nursing staff is able to ambulate with minimal assistance He dose not seem to be actively hallucinating At this point the diagnosis remains unestablished but the pattern looks like a low-grade toxic delirium and one wonders if he did not ingest a lot of anticholinergic-containing hixx-dib-rjtogdj medications in attempt to treat his upper respiratory illness. I certainly cannot exclude a low-grade viral encephalitis but his general demeanor would argue against this as in general those folks have headaches and are lethargic He is said to have a mild cardiomegaly so he needs an echocardiogram and depending on what we find on the MRI may need to go ahead with CT angiography and at some point we may even need to consider lumbar puncture but according to what I can glean from the chart and the nursing staff he seems to be improved from his status yesterday on antibiotics and fluids We may not have her come up with an answer as to what has caused this confusional period I would be curious about his baseline mental status but according to what I can glean from the chart he is said to be normal and no mention of cognitive impairment or a psychiatric disorder is present We will visit him tomorrow and perhaps things will be a little more clear and we will review the results of the MRI scan which hopefully will be done Ashu Diaz MD History of Present Illness Reason for Consultation: [facility] Requesting Physician: Anel Lora MD Attending Physician: Anel Lora MD History of Present Illness Stewart is a 75 year old male with PMH- hypothyroidism, impaired fasting glucose, sleep apnea, emphysema, HTN, venous insufficiency, adenomatous polyp of colon, who was brought to [facility] 12/09/2020 by his evoega-wo-xzc because of confusion and fall. He lives alone and his ambulatory status is not that great, does not use any walker or cane. She lives about [address] from his house. On Tuesday he drove to pwihhg-dc-ols's house and he seemed confused, did not make sense. She told him to go back to his house, followed him and found him fallenl on the driveway. He was able to climb steps and go inside the house. He didn't remember falling down, but he remembers going into the house and she found him to have a high temperature of 102 degrees. She kept a cool blanket and cooled him and he seemed to be okay, though he was not back to his usual baseline, but he was still somewhat confused, but he was much better. The following day she and another unvgizc-ui-rxa took Stewart outside to eat dinner on Tuesday and he was mostly back to baseline, but he was still somewhat confuse d, but he seemed okay. He was again found more confused today and decided to bring him in. He states he had the flu about 2 weeks ago and took alot of OTC medications. according to nursing walking to the bathroom with minimal assistance He is speaking clearly about things in the past but very confused about where he is and why he is here. denies CP, SOB, abdominal pain, one sided weakness, numbn ess tinlging, N, V. Allergies Allergy/AdvReac Type Severity Reaction Status Date / Time No Known Allergies Allergy Unverified 12/08/20 18:19 Home Medications Medication Instructions Recorded Confirmed Type atorvastatin 20 mg tablet 20 mg PO QPM 12/08/20 12/08/20 History fluticasone propionate 50 2 spray INTRANASAL DAILY 12/08/20 12/08/20 History mcg/actuation nasal spray,suspension furosemide 40 mg tablet 40 mg PO BID 12/08/20 12/08/20 History ibuprofen 200 mg tablet 200 mg PO AMPM 12/08/20 12/08/20 History levothyroxine 125 mcg tablet 125 mcg PO QAM 12/08/20 12/08/20 History losartan 25 mg tablet 25 mg PO QPM 12/08/20 12/08/20 History sandbyhqjltb-uvk-jujik acid-vit 1 tab PO QAM 12/08/20 12/08/20 History K-lycop 400 mcg-20 mcg-370 mcg tablet (One-A-Day Men's 50 Plus) potassium chloride 20 mEq 20 meq PO QAM 12/08/20 12/08/20 History tablet,extended release(part/cryst) triamterene 75 0.5 tab PO QAM 12/08/20 12/08/20 History mg-hydrochlorothiazide 50 mg tablet Patient History Social History Smoking Status: Unknown if ever smoked Preferred Language: Nigerien Communication Ability: Impaired Transcripter Required: No marital status: / Current Living Situation: Alone How many Children do You have: 0 Feels Safe at Home: Yes Assistive Devices: None Review of Systems Review of Systems: All systems reviewed & are unremarkable except as noted in HPI & below Physical Exam Physical Exam: Physical Exam: Constitutional: appearance over nourished Ears, Nose, Mouth and Throat: mucous membranes moist, no injection and skin normal, eyes normal Cardiovascular: normal S-1 and S-2 and regular rate and rhythm Respiratory: clear to auscultation (CTA) and no rales, rhonchi or wheeze Musculoskeletal: non pitting peripheral edema and good distal pulses Skin: no stigmata of neurocutaneous disease noted and normal and intact Eyes: extraocular muscles intact (EOMI) NEUROLOGIC EXAMINATION: Mental status: Alert and interactive Oriented hospital but does not know which one or the city, knows the month, year 2021, pen write with, button, ring Oriented to person Speech fluent with no evidence of aphasia Cranial Nerves smile eye brow symmetric Reflexes: Deep tendon reflexes were symmetrical and graded 2/5. Sensory: light or cool touch Coordination: finger to nose no bipass Gait/Stance: Posture sitting up in bed Motor: Negative for pronator drift of out stretched arms with eyes closed. 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 5/5, hip flex planter flex/ext 5/5 Results & Data ([facility]) Vital Signs (Past 12 Hours) Vital Signs Temp Pulse Pulse Resp BP Pulse Ox 12/09/20 10:54 37.0 C 70 18 126/78 98 12/09/20 07:18 74 12/09/20 06:41 74 12/09/20 06:10 36.8 C 78 20 105/67 93 12/09/20 03:40 38.5 C H 98 H 26 H 124/64 96 Laboratory Results Abnormal lab results 12/08/20 12/08/20 12/08/20 Range/Units 18:30 19:01 19:01 RBC 4.44 L (4.7-6.1) M/uL Hgb (14.0-18.0) g/dL Hct (42-52) % RDW Std Deviation 50.3 H (36.4-46.3) fL Plt Count (130-400) K/uL Neut # (Auto) 7.45 H (1.4-6.5) K/uL Lymph # (Auto) 0.49 L (1.2-3.4) K/uL [place] # (Auto) 0.87 H (0.11-0.59) K/uL ABG pH (7.35-7.45) ABG pO2 (80-95) mmHg ABG HCO3 (19-24) mmol/L ABG O2 Saturation (90-95) % ABG Base Excess (-9-1.8) mEq/L Potassium (3.5-5.1) mmol/L BUN 31 H (7-18) mg/dl BUN/Creatinine Ratio 25.4 H (10-20) Glucose 133 H (70-99) mg/dl Calcium (8.5-10.1) mg/dl AST 54 H (15-37) U/L Globulin 4.2 H (2.5-4.0) gm/dl Albumin/Globulin Ratio 0.8 L (0.9-2) Urine Blood 1+ H (Negative) Urine RBC (Auto) 5-10 H (0-4) /hpf U Epithel Cells (Auto) 5-10 H (0-5) /lpf 12/09/20 12/09/20 12/09/20 Range/Units 02:57 06:27 06:27 RBC 4.09 L (4.7-6.1) M/uL Hgb 13.1 L (14.0-18.0) g/dL Hct 38.9 L (42-52) % RDW Std Deviation 50.8 H (36.4-46.3) fL Plt Count 125 L (130-400) K/uL Neut # (Auto) (1.4-6.5) K/uL Lymph # (Auto) 0.35 L (1.2-3.4) K/uL [place] # (Auto) 0.76 H (0.11-0.59) K/uL ABG pH 7.48 H (7.35-7.45) ABG pO2 79 L (80-95) mmHg ABG HCO3 27 H (19-24) mmol/L ABG O2 Saturation 96.5 H (90-95) % ABG Base Excess 3.4 H (-9-1.8) mEq/L Potassium 2.9 L D (3.5-5.1) mmol/L BUN 24 H (7-18) mg/dl BUN/Creatinine Ratio 22.8 H (10-20) Glucose 130 H (70-99) mg/dl Calcium 8.2 L (8.5-10.1) mg/dl AST (15-37) U/L Globulin (2.5-4.0) gm/dl Albumin/Globulin Ratio (0.9-2) Urine Blood (Negative) Urine RBC (Auto) (0-4) /hpf U Epithel Cells (Auto) (0-5) /lpf Diagnostic Findings CT head-There is no hemorrhage, mass effect, or evidence of acute territorial ischemia by CT criteria. CXR- Cardiomegaly with no active disease in the chest. CT abdomen/pelvis-Significantly streak and motion compromised examination. No acute infectious or inflammatory findings are identified in the abdomen or pelvis. No bowel obstruction. normal EEG without evidence for focal or generalized encephalopathy without evidence for potentially epileptogenic activity (1) AMS (altered mental status) Altered mental status type: unspecified Qualified Code(s): R41.82 - Altered mental status, unspecified (2) Fall Encounter type: initial encounter Qualified Code(s): W19.XXXA - Unspecified fall, initial encounter
--- NOTE | 2020-12-09 13:14 | Electroencephalogram ---
EEG Procedure Note Date of Service December 09, 2020 Start / End Times Start Time: 1123 End Time: 1143 Referring Physician Ashu Diaz MD History Several days of fluctuating confusion with initial fever cause uncertain Home Medication List Medication Instructions Recorded Confirmed Type atorvastatin 20 mg tablet 20 mg PO QPM 12/08/20 12/08/20 History fluticasone propionate 50 2 spray INTRANASAL DAILY 12/08/20 12/08/20 History mcg/actuation nasal spray,suspension furosemide 40 mg tablet 40 mg PO BID 12/08/20 12/08/20 History ibuprofen 200 mg tablet 200 mg PO AMPM 12/08/20 12/08/20 History levothyroxine 125 mcg tablet 125 mcg PO QAM 12/08/20 12/08/20 History losartan 25 mg tablet 25 mg PO QPM 12/08/20 12/08/20 History kkhgugmmbwdd-mbk-idtny acid-vit 1 tab PO QAM 12/08/20 12/08/20 History K-lycop 400 mcg-20 mcg-370 mcg tablet (One-A-Day Men's 50 Plus) potassium chloride 20 mEq 20 meq PO QAM 12/08/20 12/08/20 History tablet,extended release(part/cryst) triamterene 75 0.5 tab PO QAM 12/08/20 12/08/20 History mg-hydrochlorothiazide 50 mg tablet Inpatient Medication List Enoxaparin Sodium (Enoxaparin Inj 40 Mg/0.4 Ml Syr) 40 mg SQ Q24H MIGUEL Stop: 01/08/21 05:59 Last Admin: 12/09/20 06:20 Dose: 40 mg Documented by: [id number] Fluticasone Propionate (Fluticasone Propionate Na Spr 16 Gm Btl) 2 sprays NA DAILY MIGUEL Stop: 01/08/21 08:59 Last Admin: 12/09/20 08:33 Dose: 2 sprays Documented by: [id number] Furosemide (Furosemide 40 Mg Tab) 40 mg PO BID17 MIGUEL Stop: 01/08/21 08:59 Last Admin: 12/09/20 08:34 Dose: 40 mg Documented by: [id number] Piperacillin Sod/Tazobactam (Sod 4.5 gm/ Dextrose) 120 mls @ 30 mls/hr IV Q8H MIGUEL; Protocol Stop: 12/11/20 07:59 Last Admin: 12/09/20 08:40 Dose: 30 mls/hr Documented by: [id number] Sodium Chloride (Nss 1000ml) 1,000 mls @ 125 mls/hr IV .Q8H MIGUEL Stop: 01/08/21 02:30 Last Admin: 12/09/20 12:33 Dose: Not Given Documented by: [id number] Infusion: 12/09/20 08:40 Dose: 0 mls/hr Documented by: [id number] Admin: 12/09/20 02:49 Dose: 125 mls/hr Documented by: [id number] Acetaminophen (Ofirmev) 1,000 mg in 100 mls @ 400 mls/hr IV Q8H PRN PRN Reason: Pain or Fever Stop: 12/12/20 03:14 Last Infusion: 12/09/20 03:35 Dose: 0 mls/hr Documented by: [id number] Admin: 12/09/20 03:15 Dose: 400 mls/hr Documented by: [id number] Potassium Chloride/Sodium Chloride (Normal Saline W/20 Meq Kcl) 20 meq in 1,000 mls @ 125 mls/hr IV .Q8H MIGUEL Stop: 12/10/20 07:59 Last Admin: 12/09/20 08:33 Dose: 125 mls/hr Documented by: [id number] Levothyroxine Sodium (Levothyroxine Sodium 125 Mcg Tablet) 125 mcg PO DAILYBB MIGUEL Stop: 01/08/21 06:29 Last Admin: 12/09/20 06:20 Dose: 125 mcg Documented by: [id number] Potassium Chloride (Potassium Chloride Crtab 20 Meq Tabcr) 20 meq PO QAM MIGUEL Stop: 01/08/21 08:59 Last Admin: 12/09/20 08:34 Dose: 20 meq Documented by: [id number] Triamterene/Hydrochlorothiazide (Triamterene/Hctz 37.5/25mg Tab) 0.5 tab PO QAM MIGUEL Stop: 01/08/21 08:59 Last Admin: 12/09/20 08:34 Dose: 0.5 tab Documented by: [id number] Discontinued Medications Sodium Chloride (Nss 1000ml) 1,000 mls @ 999 mls/hr IV .Q1H1M ONE Stop: 12/08/20 18:35 Last Infusion: 12/08/20 20:30 Dose: 999 mls/hr Documented by: [id number] Admin: 12/08/20 19:29 Dose: 999 mls/hr Documented by: [id number] Lorazepam (Ativan) 1 mg in 2 mls @ 2 mls/min IV NOW STA Stop: 12/08/20 20:41 Last Admin: 12/08/20 20:48 Dose: 2 mls/min Documented by: [id number] Lorazepam (Ativan) 1 mg in 2 mls @ 2 mls/min IV NOW STA Stop: 12/09/20 01:12 Last Admin: 12/09/20 01:26 Dose: Not Given Documented by: [id number] Piperacillin Sod/Tazobactam (Sod 4.5 gm/ Dextrose) 120 mls @ 240 mls/hr IV ONE ONE; Protocol Stop: 12/09/20 03:14 Last Infusion: 12/09/20 04:05 Dose: 0 mls/hr Documented by: [id number] Admin: 12/09/20 03:32 Dose: 240 mls/hr Documented by: [id number] Thiamine HCl 500 mg/ Sodium (Chloride) 105 mls @ 210 mls/hr IV NOW STA Stop: 12/09/20 10:19 Last Infusion: 12/09/20 11:16 Dose: 0 mls/hr Documented by: [id number] Admin: 12/09/20 10:39 Dose: 210 mls/hr Documented by: [id number] Ioversol (Optiray 320 100ml) 94 ml IV ONCE ONE Stop: 12/08/20 20:05 Last Admin: 12/08/20 20:04 Dose: 94 ml Documented by: [id number] Lorazepam (Lorazepam 2 Mg/4 Ml Vial) Confirm Administered Dose 2 mg .ROUTE .K- [facility] ONE Stop: 12/09/20 01:10 Last Increment: 12/09/20 01:14 Dose: 1 mg Documented by: [id number] Description This is a 21 electrode EEG with a single channel dedicated to limited EKG. The electrodes were placed in accordance with the International 10-20 system. This EEG was done as a bedside recording of patient is described as confused and poorly cooperative and was possibly free of muscle movement artifact despite video analysis which demonstrated a lot of movement and facial gesticulations and upper extremity movements. Under these conditions there is evidence for normal-appearing background in the alpha range of up to 11 Hz maximum frequency and of up to 30 V maximum amplitude. Polymorphic mid to upper frequency modest voltage theta activity seen predominantly central regions and symmetrical fashion. Beta activity seen bifrontally. Letter simulation evokes minimal driving response. No potentially epileptiform activity is noted Interpretation This is a normal EEG during wakefulness Clinical Correlation Is a normal EEG without evidence for focal or generalized encephalopathy without evidence for potentially epileptogenic activity Ashu Diaz MD Supervising Physician Co-Signing Physician Notes I have seen and discussed above patient with Dr Ashu Diaz, neurology
--- NOTE | 2020-12-09 13:33 | Hospitalist Progress Note ---
Date of Service December 09, 2020 Assessment & Plan (1) AMS (altered mental status): Plan: Presented with acute confusion/metabolic encephalopathy for some time Has had fever but no documented infective source yet Initial CT scan of the head has been negative and awaiting MRI B12 and folate level and TSH are unremarkable EEG has been pending We will ask for echocardiogram Appreciate neurology input and recommendation EEG has been pending and may need LP if no other cause for change in mental status and fever are found He remains pleasantly confused but otherwise stable Fever Intermittent for the last few days Highest temperature of 38.5 as of early this morning No infective source as of yet, no elevation of white count or no leukopenia, procalcitonin and lactic acid are normal, UA and chest x-ray unremarkable No signs and or symptoms of meningitis Intravenous Zosyn has been started Await cultures Hypokalemia Supplemented Monitor PRP and electrolytes (2) Ambulatory dysfunction: Plan: Has had recent fall Does not use any assistive device to walk around We will get PT and OT evaluation (3) Hypertension: Plan: Remains stable We will continue current medication (4) Hypothyroidism: Plan: We will continue with supplementation (5) Impaired glucose tolerance test: Plan: Will get hemoglobin A1c (6) History of emphysema: Plan: No shortness of breath at rest Does not take any medications for that DVT prophylaxis Subcu Lovenox CODE STATUS Full (7) Venous insufficiency: Admission and Anticipated Discharge Date Admission Date: December 08, 2020 Subjective 12/09/2020 The patient was seen and examined in medical telemetry unit He was admitted with acute confusion which has been going on for some time Has had ambulatory dysfunction with a recent fall Remains pleasantly confused otherwise does not have any neurological symptoms Denies any other significant symptoms Review of Systems Review of Systems: All systems reviewed and are unremarkable except as noted below Neurologic: Pleasantly confused but alert and awake. Moves all limbs equally without any focal neuro deficit except generalized weakness Physical Exam Physical Exam: Bed without any acute distress Constitutional: well developed, well nourished and + obese; not ill appearing Eyes: PERRL, conjunctivae normal, anicteric sclerae ENMT: external ear and nose normal, oropharynx normal Neck: trachea midline, no thyromegaly Respiratory: no respiratory distress and no cough Auscultation: lungs clear to auscultation bilaterally Cardiovascular: Rate/Rhythm: regular rate and regular rhythm; not tachycardic Heart Sounds: normal S1 and normal S2; no murmur Extremities: no edema Gastrointestinal (Abdomen): Inspection/Auscultation: normal bowel sounds; abdomen not distended Percussion/Palpation: abdomen soft; abdomen nontender Musculoskeletal: No acute arthritis in any joint Neurologic: Alert and awake. Pleasantly confused. Generally weak. No focal sensory and/or motor deficit appreciated. No photophobia and/or neck stiffness Results & Data Results & Data ([facility]) Vital Signs (Past 12 Hours) Vital Signs Temp Pulse Pulse Resp BP Pulse Ox 12/09/20 10:54 37.0 C 70 18 126/78 98 12/09/20 07:18 74 12/09/20 06:41 74 12/09/20 06:10 36.8 C 78 20 105/67 93 12/09/20 03:40 38.5 C H 98 H 26 H 124/64 96 Laboratory Results Short CBC 12/08/20 12/09/20 Range/Units 19:01 06:27 WBC 8.94 6.85 (4.8-10.8) K/uL Hgb 14.4 13.1 L (14.0-18.0) g/dL Hct 42.0 38.9 L (42-52) % Plt Count 142 125 L (130-400) K/uL BMP 12/08/20 12/09/20 19:01 06:27 Sodium 137 139 Potassium 4.0 2.9 L D Chloride 101 104 Carbon Dioxide 31 29 BUN 31 H 24 H Creatinine 1.22 1.06 Glucose 133 H 130 H Calcium 8.9 8.2 L Cardiac Enzymes 12/08/20 Range/Units 19:01 Troponin I < 0.015 (0-0.045) ng/ml Liver Function 12/08/20 Range/Units 19:01 Total Bilirubin 0.5 (0.2-1) mg/dl AST 54 H (15-37) U/L ALT 29 (12-78) U/L Alkaline Phosphatase 75 (45-117) U/L Albumin 3.4 (3.4-5.0) gm/dl Urine 12/08/20 Range/Units 18:30 Urine Color Yellow Urine Appearance Clear (Clear) Urine pH 6.5 (4.5-7.5) Ur Specific [place] 1.016 (1.000-1.030) Urine Protein Negative (Negative) Urine Glucose (UA) Negative (Negative) Medications Administered Current Inpatient Medications Atorvastatin Calcium (Atorvastatin 20 Mg Tab) 20 mg PO QPM MIGUEL Stop: 01/08/21 20:59 Enoxaparin Sodium (Enoxaparin Inj 40 Mg/0.4 Ml Syr) 40 mg SQ Q24H MIGUEL Stop: 01/08/21 05:59 Last Admin: 12/09/20 06:20 Dose: 40 mg Documented by: Fluticasone Propionate (Fluticasone Propionate Na Spr 16 Gm Btl) 2 sprays NA DAILY MIGUEL Stop: 01/08/21 08:59 Last Admin: 12/09/20 08:33 Dose: 2 sprays Documented by: Furosemide (Furosemide 40 Mg Tab) 40 mg PO BID17 MIGUEL Stop: 01/08/21 08:59 Last Admin: 12/09/20 08:34 Dose: 40 mg Documented by: Piperacillin Sod/Tazobactam (Sod 4.5 gm/ Dextrose) 120 mls @ 30 mls/hr IV Q8H MIGUEL; Protocol Stop: 12/11/20 07:59 Last Admin: 12/09/20 08:40 Dose: 30 mls/hr Documented by: Sodium Chloride (Nss 1000ml) 1,000 mls @ 125 mls/hr IV .Q8H MIGUEL Stop: 01/08/21 02:30 Last Admin: 12/09/20 12:33 Dose: Not Given Documented by: Acetaminophen (Ofirmev) 1,000 mg in 100 mls @ 400 mls/hr IV Q8H PRN PRN Reason: Pain or Fever Stop: 12/12/20 03:14 Last Infusion: 12/09/20 03:35 Dose: Infused Documented by: Potassium Chloride/Sodium Chloride (Normal Saline W/20 Meq Kcl) 20 meq in 1,000 mls @ 125 mls/hr IV .Q8H MIGUEL Stop: 12/10/20 07:59 Last Admin: 12/09/20 08:33 Dose: 125 mls/hr Documented by: Levothyroxine Sodium (Levothyroxine Sodium 125 Mcg Tablet) 125 mcg PO DAILYBB MIGUEL Stop: 01/08/21 06:29 Last Admin: 12/09/20 06:20 Dose: 125 mcg Documented by: Losartan Potassium (Losartan Potassium 25 Mg Tab) 25 mg PO QPM MIGUEL Stop: 01/08/21 20:59 Miscellaneous Information (Piperacill/Tazobac Consult Active) 1 ea N/A UD PRN PRN Reason: Consult Stop: 01/08/21 02:30 Nitroglycerin (Nitroglycerin Sl 0.4 Mg/Tab Tab) 0.4 mg SL UD PRN PRN Reason: Chest Pain Stop: 01/08/21 02:30 Polyethylene Glycol (Polyethylene (Miralax) 17 Gm Pack) 17 gm PO DAILY PRN PRN Reason: Constipation Stop: 01/08/21 02:30 Potassium Chloride (Potassium Chloride Crtab 20 Meq Tabcr) 20 meq PO QAM [facility] Stop: 01/08/21 08:59 Last Admin: 12/09/20 08:34 Dose: 20 meq Documented by: Triamterene/Hydrochlorothiazide (Triamterene/Hctz 37.5/25mg Tab) 0.5 tab PO QAM [facility] Stop: 01/08/21 08:59 Last Admin: 12/09/20 08:34 Dose: 0.5 tab Documented by: (1) AMS (altered mental status) Altered mental status type: unspecified Qualified Code(s): R41.82 - Altered mental status, unspecified
--- NOTE | 2020-12-09 16:49 | Electrocardiogram Report ---
Test Reason : Blood Pressure : / mmHG Vent. Rate : 089 BPM Atrial Rate : 089 BPM P-R Int : 142 ms QRS Dur : 086 ms QT Int : 356 ms P-R-T Axes : 069 -41 066 degrees QTc Int : 433 ms Poor data quality, interpretation may be adversely affected Normal sinus rhythm Left anterior fascicular block Borderline ECG No previous ECGs available Confirmed by Vance Vasquez ([id number]) on 12/09/2020 4:49:12 PM Referred By: Shari Rosenbaum Confirmed By:Vance Vasquez
--- NOTE | 2020-12-09 18:38 | XRay Report ---
ORBIT RADIOGRAPHS 3 VIEWS HISTORY: pre-MRI screening. COMPARISON: Head CT December 08, 2020. FINDINGS: There are no radiopaque foreign bodies identified within the orbits. IMPRESSION: No radiopaque foreign bodies identified within the orbits. ACT 112: Negative or not required by law. Electronically signed by: Papi Rebollar M.D. 12/09/2020 6:37 PM
[2020-12-09] MEDS ORDERED: GADOBUTROL 65ML VIAL IV ONE (19:03)
--- NOTE | 2020-12-09 19:25 | Magnetic Resonance Report ---
MRI OF THE BRAIN WITHOUT AND WITH IV CONTRAST CLINICAL HISTORY: confusion, garbled speech COMPARISON STUDY: Head CT December 08, 2020. TECHNIQUE: Utilizing a 1.5 Rose magnet and dedicated coil, multiplanar, multiecho imaging of the br ain was performed pre and postcontrast administration. IV administration of 10.5 mL of Gadavist cont rast was uneventful. FINDINGS: This exam is compromised by motion artifact although is diagnostic. There are no foci of re stricted diffusion to suggest acute infarct. No acute intracranial hemorrhage, midline shift or mass effect is present. Ventricular system is unremarkable. Basal cisterns are patent. There are no extra axial collections. There is mild to moderate atrophy. White matter T2 hyperintense foci suggest small vessel disease. There may be an old lacunar infarct within the periventricular left frontal lobe. No intracranial mass or pathologic enhancement is present. Calvarial signal is within normal limits. Th ere is trace fluid within the bilateral mastoid air cells. There is no evidence for sinusitis. IMPRESSION: 1. No acute intracranial findings. 2. No intracranial mass or pathologic enhancement. 3. Exam mildly compromised by motion artifact. 4. Mild to moderate cerebral atrophy. White matter T2 hyperintense foci suggestive of small vessel di sease. ACT 112: Negative or not required by law. Electronically signed by: Papi Rebollar M.D. 12/09/2020 7:23 PM
[2020-12-09] MEDS: LOSARTAN POTASSIUM 25 MG TAB PO SCH (20:38)
[2020-12-09] MEDS: ATORVASTATIN 20 MG TAB PO SCH (20:38)
[2020-12-09] MEDS: TAMSULOSIN HCL 0.4 MG CAP PO SCH (23:08)
[2020-12-10] MEDS: PIPERACILLIN/TAZOBACTAM 4.5 GM in DEXTROSE 5% 100 ML IV SCH ×4 (00:42→23:53)
[2020-12-10] MEDS: NSS + 20MEQ KCL 20 MEQ/1,000 ML BAG IV SCH (03:19)
[2020-12-10] MEDS: SODIUM CHLORIDE 0.9% 1000ML 1,000 ML IV SCH ×3 (04:46→15:18)
[2020-12-10] MEDS: ENOXAPARIN INJ 40 MG/0.4 ML SYR SQ SCH (05:37)
[2020-12-10] MEDS: LEVOTHYROXINE SODIUM 125 MCG TABLET PO SCH (05:37)
[2020-12-10 07:05] LABS: Hematocrit (blood only) 35.5 % (42-52); Hemoglobin 11.9 g/dL (14.0-18.0); Mean Corpuscular Hemoglobin 31.6 pg (25-34); Mean Corpuscular Hgb Conc 33.5 g/dL (32-36); Mean Corpuscular Volume 94.2 fL (80-100); Platelet Count 128 K/uL (130-400); RDW Coefficient of Variation 14.1 % (11.5-14.5); RDW Standard Deviation 48.8 fL (36.4-46.3); Red Blood Count 3.77 M/uL (4.7-6.1); White Blood Count 5.58 K/uL (4.8-10.8)
[2020-12-10 07:06] LABS: Basophils # (auto) 0.01 K/uL (0-0.2); Basophils % (auto) 0.2 %; Eosinophils # (auto) 0.23 K/uL (0-0.5); Eosinophils % (auto) 4.1 %; Immature Granulocytes # (auto) 0.01 K/uL (0.00-0.02); Immature Granulocytes % (auto) 0.2 %; Lymphocytes # (auto) 0.76 K/uL (1.2-3.4); Lymphocytes % (auto) 13.6 %; Monocytes # (auto) 0.55 K/uL (0.11-0.59); Monocytes % (auto) 9.9 %; Neutrophils # (auto) 4.02 K/uL (1.4-6.5)
[2020-12-10 07:13] LABS: Albumin Globulin Ratio 0.7 (0.9-2); Albumin Level 2.6 gm/dl (3.4-5.0); BUN Creatinine Ratio 16.7 (10-20); Bilirubin,Total 0.6 mg/dl (0.2-1); Calcium 7.7 mg/dl (8.5-10.1); Creatinine Clr Calc Pharmacy 91.2 ml/min; Est GFR (African American) 99.2 ml/min; Est GFR (Non-African American) 85.6 ml/min; Globulin 3.8 gm/dl (2.5-4.0); Potassium 3.1 mmol/L (3.5-5.1); Total Protein 6.4 gm/dl (6.4-8.2)
[2020-12-10 07:19] LABS: Estimated Average Glucose 120 mg/dl; Hemoglobin A1C 5.8 % (4.5-5.6)
[2020-12-10] MEDS: FLUTICASONE PROPIONATE NA SPR 16 GM BTL SCH (08:21)
[2020-12-10] MEDS: TRIAMTERENE/HCTZ 37.5/25MG TAB PO SCH (08:22)
[2020-12-10] MEDS: POTASSIUM CHLORIDE CRTAB 20 MEQ TABCR PO SCH (08:22)
[2020-12-10] MEDS: FUROSEMIDE 40 MG TAB PO SCH ×2 (08:23→16:17)
[2020-12-10] MEDS ORDERED: POTASSIUM CHLORIDE CRTAB 20 MEQ TABCR PO STA (09:22)
[2020-12-10 10:28] LABS: Ferritin 288.6 ng/ml (8-388)
[2020-12-10 14:08] LABS: Hemoglobin 13.1 g/dL (14.0-18.0)
--- NOTE | 2020-12-10 15:14 | Neurology Progress Note ---
Date of Service December 10, 2020 Assessment & Plan (1) AMS (altered mental status): Plan: 1. MRI brain with and without -no stroke 2. EEG- encephalopathy no seizure focus 3. still confused would go forward with LP 4. TTE r/o cardiac source- no valvular disease. no ASD 5. toxic screen - may be late but might shrimp picker some OTC medication 6. baseline would be helpful he is still confused and unable to keep focus on questions. 7. cultures resulted negative for growth 8. will need CTA head and neck - r/o vascular issues follow up with neurology 4-6 weeks, Elle Lo PAC (2) Fall: Plan: 1. PT/OT for discharge needs Admission and Anticipated Discharge Date Admission Date: December 08, 2020 Supervising Physician Co-Signing Physician Notes I have seen and discussed above patient with Dr Ashu Diaz, neurology I saw Mr. Miranda again today and at this point feel he is no better than he was yesterday and in fact is probably slightly worse. He is tangential disorganized knows he has been here 3 days knows it is November can come up with a date does not know the president and can give me some directions in [facility] but nothing that I would think would be adequate to make him able to operate a motor vehicle and he continues to perseverate about some automotive issues and the fact that he thinks his sister in law is going to pick him up tomorrow Rest of his exam shows no motor deficits no abnormal involuntary movements no nuchal rigidity and laboratory studies have not helped very much including a tox screen which is negative but it would not shrimp picker [id number] excessive amounts of antihistamines that he may have been taking to treat what he thinks was an upper respiratory tract infection This began with an infectious illness according to the history we have and I think we now need to go on for a lumbar puncture as the MRI has not shown anything the EEG is normal the tox screen is negative and routine labs have not revealed anything including a Lyme titer and a COVID-19 test This is going to be done under fluoroscopy with standard studies occluding some viral studies for West Nile virus and herpes The ultimate diagnosis is still elusive. And I do not know what his baseline status might be in terms of his intellectual function. If indeed he has been getting a little more eccentric or cognitively impaired for several months or over the past yearthen he could easily have been tipped over into a toxic encephalopathy by a mild viral infection or the effects of antihistaminics and now is suffering from a hospital psychosis but this needs to ba a diagnosis of exclusion and a viral encephalitis or other infectious or even a paraneoplasic process needs excluded Dr. Hernandez will be assuming the case tomorrow Ashu Diaz MD Subjective Stewart is a 75 year old male with PMH- hypothyroidism, impaired fasting glucose, sleep apnea, emphysema, HTN, venous insufficiency, adenomatous polyp of colon, who was brought to [facility] 12/09/2020 by his [id number] because of confusion and fall. He lives alone and his ambulatory status is not that great, does not use any walker or cane. She lives about [address] house. On Tuesday he drove to lriath-bd-wpu's house and he seemed confused, did not make sense. She told him to go back to his house, followed him and found him fallenl on the driveway. He was able to climb steps and go inside the house. He didn't remember falling down, but he remembers going into the house and she found him to have a high temperature of 102 degrees. She kept a cool blanket and cooled him and he seemed to be okay, though he was not back to his usual baseline, but he was still somewhat confused, but he was much better. The following day she and another [id number] took Stewart outside to eat dinner on Tuesday and he was mostly back to baseline, but he was still somewhat confused, but he seemed okay. He was again found more confused today and decided to bring him in. He states he had the flu about 2 weeks ago and took alot of OTC medications. according to nursing walking to the bathroom but unsteady. denies pain, new bowel or bladder issues. Review of Systems Review of Systems: All systems reviewed & are unremarkable except as noted in HPI & below Physical Exam Physical Exam: Physical Exam: Constitutional: appearance over nourished Ears, Nose, Mouth and Throat: mucous membranes moist, no injection and skin normal, eyes normal Cardiovascular: normal S-1 and S-2 and regular rate and rhythm Respiratory: course breath sounds Musculoskeletal: non pitting peripheral edema and good distal pulses Skin: no stigmata of neurocutaneous disease noted and normal and intact Eyes: extraocular muscles intact (EOMI) NEUROLOGIC EXAMINATION: Mental status: Alert and interactive Oriented today he is not oriented to hospital but does not know which one or the city, knows the month, year 2011, pen write with, can not identify button Oriented to person Speech fluent with no evidence of aphasia, rambles on about his past and his sister in law Cranial Nerves smile eye brow symmetric Reflexes: Deep tendon reflexes were symmetrical and graded 2/5. Sensory: light or cool touch Coordination: finger to nose no bipass Gait/Stance: Posture sitting up in bed Motor: Negative for pronator drift of out stretched arms with eyes closed. Strength: hand conference assistant biceps triceps 5/5, hip flex planter flex/ext 5/5 Results & Data ([facility]) Vital Signs (Past 12 Hours) Vital Signs Temp Pulse Pulse Resp BP BP Pulse Ox 12/10/20 15:03 79 12/10/20 14:56 36.8 C 70 18 142/93 H 96 12/10/20 10:57 36.2 C L 75 16 145/80 H 97 12/10/20 07:51 78 12/10/20 07:04 36.7 C 80 18 132/83 95 12/10/20 04:14 37.0 C 73 18 128/70 96 Laboratory Results Abnormal lab results 12/10/20 12/10/20 12/10/20 Range/Units 06:10 06:10 06:10 RBC 3.77 L (4.7-6.1) M/uL Hgb 11.9 L (14.0-18.0) g/dL Hct 35.5 L (42-52) % RDW Std Deviation 48.8 H (36.4-46.3) fL Plt Count 128 L (130-400) K/uL Lymph # (Auto) 0.76 L (1.2-3.4) K/uL Potassium 3.1 L (3.5-5.1) mmol/L Glucose (70-99) mg/dl Hemoglobin A1c 5.8 H (4.5-5.6) % Calcium 7.7 L (8.5-10.1) mg/dl Iron (35-175) mcg/dl TIBC (250-450) mcg/dl Transferrin (200-360) mg/dl Transferrin % Sat (20-50) % AST 43 H (15-37) U/L Albumin 2.6 L (3.4-5.0) gm/dl Albumin/Globulin Ratio 0.7 L (0.9-2) 12/10/20 12/10/20 12/10/20 Range/Units 06:10 13:57 13:57 RBC (4.7-6.1) M/uL Hgb 13.1 L (14.0-18.0) g/dL Hct 39.0 L (42-52) % RDW Std Deviation (36.4-46.3) fL Plt Count (130-400) K/uL Lymph # (Auto) (1.2-3.4) K/uL Potassium (3.5-5.1) mmol/L Glucose 124 H (70-99) mg/dl Hemoglobin A1c (4.5-5.6) % Calcium (8.5-10.1) mg/dl Iron 27 L (35-175) mcg/dl TIBC 185 L (250-450) mcg/dl Transferrin 131 L (200-360) mg/dl Transferrin % Sat 15 L (20-50) % AST (15-37) U/L Albumin (3.4-5.0) gm/dl Albumin/Globulin Ratio (0.9-2) Diagnostic Findings TTE- 55-60% no ASD MRI brain- No acute intracranial findings. No intracranial mass or pathologic enhancement. Exam mildly compromised by motion artifact. Mild to moderate cerebral atrophy. White matter T2 hyperintense foci suggestive of small vessel disease. (1) AMS (altered mental status) Altered mental status type: unspecified Qualified Code(s): R41.82 - Altered mental status, unspecified (2) Fall Encounter type: initial encounter Qualified Code(s): W19.XXXA - Unspecified fall, initial encounter
--- NOTE | 2020-12-10 15:21 | Hospitalist Progress Note ---
Date of Service December 10, 2020 Assessment & Plan (1) AMS (altered mental status): (2) Fever: (3) Ambulatory dysfunction: Plan: 75-year-old male with PMH of hypothyroidism, impaired fasting glucose, sleep apnea, emphysema, HTN, venous insufficiency, adenomatous polyp of colon was brought in 12/08 to our ED by his [id number]-[id number] Susie because of concern of confusion and fall. Patient lives alone and his ambulatory status is not that great but does not use any walker or cane per his MICHELLE. 2 days TA, MICHELLE noticed confusion and found him fall in the driveway. She also noted temperature of 102 degrees on the same day. Because he did not improve, he was brought to the ED. Per his MICHELLE, he is able to carry on meaningful conversation at baseline. #. AMS #. Fever Patient noted to be confused and one episode of fall 2 days DATA GOVERNANCE CONSULTANT Patient also noted to have temperature 102F at home. Temperature of 38.5C on 12/09. 12/08 pro-Chris negative. TSH WNL 12/09 MRI brain: No acute changes 12/09 EEG: Normal EEG without evidence of focal or generalized encephalopathy, without evidence of potentially epileptogenic activity. 12/10 echo: LV ejection fraction 55 to 60%, mild concentric LVH, grade 1 diastolic dysfunction. No evidence of atrial septal defect. Intermittent fever for last few days DATA GOVERNANCE CONSULTANT. No source of infection identified so far for fever. 12/08 blood cultureno growth after 24 hours. Follow-up with final culture. WBC, pro-Chris and LA are normal. UA and CXR are unremarkable. No signs/symptoms of meningitis. Continue with IV antibioticsZosyn 12/09. Patient more towards his baseline which is confirmed by his ijjsqi-fo-bau when she talked with him over the phone 12/10. Neurology on board: Plan for LP tomorrow. Follow-up with CSF studies. Hold Lovenox, resume tomorrow evening after LP. Continue supportive care. Neurochecks. #. Electrolytes abnormality Potassium 3.1 today, replaced. Monitor daily. #. Anemia Hemoglobin 11.9 today morning Iron profile suggestive of iron deficiency anemia, normal ferritin storage Vitamin B12 and folate WNL. FOBT negative. Trend hemoglobin, continue to monitor 12/10 A1C 5.8% #. Ambulatory dysfunction Recent fall 2 days DATA GOVERNANCE CONSULTANT Did not use any assistive device to walk around PT/OT on board: Continue PT/OT while inpatient, recommends outpatient OT after discharge from [facility]. #. Hypertension Stable, continue current medication. #. Hypothyroidism Continue home medication #. Impaired glucose tolerance test A1c 5.8% Keep an eye on daily blood glucose #. Emphysema No shortness of breath, stable Do not take any medications #. DVT prophylaxis: On Lovenox, currently held for LP on 12/11. Resume after LP. Full code Patient [id number] Susie was updated 12/10 aorta status of the patient and plan of care. She voiced understanding and was agreeable to the plan of care. Admission and Anticipated Discharge Date Admission Date: December 08, 2020 Subjective Patient was lying semiupright in bed, on room air, NAD, minimally restless, AOx3. Per his eoocuc-rf-nru, he is able to carry out meaningful conversation at baseline and feels that he is at his baseline today when she called him. He denies any pain/shortness of breath/headache/dizziness/any other review of symptoms. Per RN, he is doing better compared to yesterday. Physical Exam Physical Exam: GENERAL: Alert and oriented x3. NAD, on RA. HEENT: No pallor, no icterus. Pupils equal, round and reactive to light. Oral mucosa moist. NECK: No JVD, no neck masses. HEART: S1 and S2 heard. Regular rate and rhythm. No murmur, no gallop. RESPIRATORY SYSTEM: Normal AP diameter. No accessory muscle use. No wheezing, no crackles. ABDOMEN: Soft, bowel sounds present, nontender, no distention. CENTRAL NERVOUS SYSTEM: No facial droop. Speech is clear. Obeys simple commands. Moves extremities. EXTREMITIES: trace edema, no erythema seen. Results & Data Results & Data ([facility]) Vital Signs (Past 12 Hours) Vital Signs Temp Pulse Pulse Resp BP BP Pulse Ox 12/10/20 10:57 36.2 C L 75 16 145/80 H 97 12/10/20 07:51 78 12/10/20 07:04 36.7 C 80 18 132/83 95 12/10/20 04:14 37.0 C 73 18 128/70 96 (1) AMS (altered mental status) Altered mental status type: unspecified Qualified Code(s): R41.82 - Altered mental status, unspecified
[2020-12-10] MEDS: LOSARTAN POTASSIUM 25 MG TAB PO SCH (21:13)
[2020-12-10] MEDS: ATORVASTATIN 20 MG TAB PO SCH (21:13)
[2020-12-10] MEDS: TAMSULOSIN HCL 0.4 MG CAP PO SCH (21:13)
[2020-12-11] MEDS: SODIUM CHLORIDE 0.9% 1000ML 1,000 ML IV SCH ×3 (00:27→15:37)
[2020-12-11] MEDS ORDERED: OLANZAPINE 2.5 MG TAB PO STA (04:43)
[2020-12-11] MEDS ORDERED: OLANZapine 10 MG/2.1 ML SDV IM PRN (04:44)
[2020-12-11] MEDS: LEVOTHYROXINE SODIUM 125 MCG TABLET PO SCH (05:02)
[2020-12-11] MEDS: ACETAMINOPHEN 1,000 MG/100 ML VIAL IV PRN ×2 (05:52→20:03)
[2020-12-11 06:26] LABS: Hematocrit (blood only) 39.1 % (42-52); Hemoglobin 13.2 g/dL (14.0-18.0); Mean Corpuscular Hemoglobin 31.5 pg (25-34); Mean Corpuscular Hgb Conc 33.8 g/dL (32-36); Mean Corpuscular Volume 93.3 fL (80-100); Mean Platelet Volume 10.7 fL (7.4-10.4); Platelet Count 145 K/uL (130-400); RDW Coefficient of Variation 13.7 % (11.5-14.5); RDW Standard Deviation 47.2 fL (36.4-46.3); Red Blood Count 4.19 M/uL (4.7-6.1); White Blood Count 5.76 K/uL (4.8-10.8)
[2020-12-11 07:11] LABS: BUN Creatinine Ratio 9.2 (10-20); Calcium 8.3 mg/dl (8.5-10.1); Creatinine Clr Calc Pharmacy 88.7 ml/min; Est GFR (African American) 97.9 ml/min; Est GFR (Non-African American) 84.4 ml/min; Magnesium 1.9 mg/dl (1.8-2.4); Potassium 3.4 mmol/L (3.5-5.1)
[2020-12-11] MEDS: PIPERACILLIN/TAZOBACTAM 4.5 GM in DEXTROSE 5% 100 ML IV SCH (07:27)
[2020-12-11] MEDS: FUROSEMIDE 40 MG TAB PO SCH ×2 (08:10→15:42)
[2020-12-11] MEDS: POTASSIUM CHLORIDE CRTAB 20 MEQ TABCR PO SCH (08:10)
[2020-12-11] MEDS: FLUTICASONE PROPIONATE NA SPR 16 GM BTL SCH (08:10)
[2020-12-11] MEDS: TRIAMTERENE/HCTZ 37.5/25MG TAB PO SCH (08:11)
--- NOTE | 2020-12-11 08:23 | XRay Report ---
LEFT FOOT 3 VIEWS CLINICAL HISTORY: Left foot pain and swelling. FINDINGS: 3 views of the left foot are obtained. No prior studies are available for comparison at the time of dictation. The skeletal structures are well mineralized for age. No fracture is identified. Mild to moderate osteoarthritic change is seen at the first metatarsophalangeal joint. Mild degenerat emmie change is noted in the midfoot, and there is degenerative spurring along the dorsal aspect of the tarsal bones. No erosive disease is seen. There are large dorsal and plantar calcaneal enthesophytes . Soft tissue edema is noted in the forefoot. No radiodense foreign body or soft tissue gas is identi fied. IMPRESSION: Soft tissue swelling with no acute bony abnormality identified. Electronically signed by: German Adkins M.D. 12/11/2020 8:22 AM
[2020-12-11] MEDS ORDERED: POTASSIUM CHLORIDE CRTAB 20 MEQ TABCR PO STA (09:12)
--- NOTE | 2020-12-11 15:15 | Fluoroscopy Report ---
12/11/2020 3:05 PM FL lumbar puncture diagnostic EXAMINATION: Fluoroscopic-guided lumbar puncture. REASON FOR EXAMINATION: [place] ^fever with no source PROCEDURE: After the technique, risks, alternatives, and benefits of the procedure were explained to the patient, signed consent was obtained. A confirmatory timeout was performed prior to initiation o f the procedure. A suitable puncture site at the L5-S1 level was obtained using fluoroscopy. The site was then cleaned and prepped in the usual sterile fashion. A total of 3 mL of 1% lidocaine was infu sed into the subcutaneous tissues during the procedure to achieve local anesthesia. Using a 22-gauge 5 inch spinal needle, the thecal sac was accessed under fluoroscopic guidance with the patient in the prone position.. Approximately 8 mL of clear CSF was collected into four separate vials. The spinal needle with stylet in place was removed and pressure was placed over the puncture site until hemostas is was achieved. There were no immediate complications. The patient tolerated the procedure well. IMPRESSION: Fluoroscopic guided lumbar puncture. Approximately 8 mL of clear CSF was collected into f our separate vials. No immediate complications. Fluoroscopy time: 0.4 minutes ACT 112: Negative or not required by law. Electronically signed by: Macho Mir M.D. 12/11/2020 3:14 PM
--- NOTE | 2020-12-11 15:33 | Hospitalist Progress Note ---
Date of Service December 11, 2020 Assessment & Plan (1) AMS (altered mental status): (2) Fever: (3) Ambulatory dysfunction: Plan: 75-year-old male with PMH of hypothyroidism, impaired fasting glucose, sleep apnea, emphysema, HTN, venous insufficiency, adenomatous polyp of colon was brought in 12/08 to our ED by his [id number] Susie because of concern of confusion and fall. Patient lives alone and his ambulatory status is not that great but does not use any walker or cane per his MICHELLE. 2 days TA, MICHELLE noticed confusion and found him fall in the driveway. She also noted temperature of 102 degrees on the same day. Because he did not improve, he was brought to the ED. Per his MICHELLE, he is able to carry on meaningful conversation at baseline. #. AMS #. Fever of unknown origin #. Left foot erythema/warmth/minimal rednessnoted 12/11, non tender Patient noted to be confused and one episode of fall 2 days TRAVEL PTA Patient also noted to have temperature 102F at home. Temperature of 38.5C on 12/09. 12/08 pro-Chris negative. TSH WNL 12/09 MRI brain: No acute changes 12/09 EEG: Normal EEG without evidence of focal or generalized encephalopathy, without evidence of potentially epileptogenic activity. 12/10 echo: LV ejection fraction 55 to 60%, mild concentric LVH, grade 1 diastolic dysfunction. No evidence of atrial septal defect. 12/11: Lumbar puncture, follow-up with CSF studies Intermittent fever for last few days TRAVEL PTA. No source of infection identified so far for fever. 12/08 blood cultureno growth. WBC, pro-Chris and LA are normal. UA and CXR are unremarkable. No signs/symptoms of meningitis. Zosyn 12/09 changed to Rocephin 12/11 Patient pleasantly confused at bedside. Neurology on board: Follow-up with neurology in 4 to 6 weeks. Hold Lovenox, resume tomorrow evening after LP. Continue supportive care. Neurochecks. Continue to clinically monitor left foot for development of any infection. #. Electrolytes abnormality Potassium 3.4 today, replaced. Monitor daily. #. Anemia Hemoglobin low but stable Iron profile suggestive of iron deficiency anemia, normal ferritin storage Vitamin B12 and folate WNL. FOBT negative. Trend hemoglobin as needed, continue to monitor #. Ambulatory dysfunction Recent fall 2 days TRAVEL PTA Did not use any assistive device to walk around PT/OT on board: Continue PT/OT while inpatient, recommends outpatient OT after discharge from [facility]. #. Hypertension Stable, continue current medication. #. Hypothyroidism Continue home medication #. Impaired glucose tolerance test 9/A1c 5.8% Keep an eye on daily blood glucose #. Emphysema No shortness of breath, stable Do not take any medications #. DVT prophylaxis: On Lovenox, held for LP on 12/11 for 1 day. Resume 12/12 Full code Patient [id number] Susie was updated 12/10 about status of the patient and plan of care. She voiced understanding and was agreeable to the plan of care. Admission and Anticipated Discharge Date Admission Date: December 08, 2020 Subjective Patient was lying semiupright in bed, on room air, NAD, pleasantly confused. Patient denies any pain/shortness of breath/any other review of symptoms. Physical Exam Physical Exam: GENERAL: Alert, pleasantly confused. NAD, on RA. HEENT: No pallor, no icterus. Pupils equal, round and reactive to light. Oral mucosa moist. NECK: No JVD, no neck masses. HEART: S1 and S2 heard. Regular rate and rhythm. No murmur, no gallop. RESPIRATORY SYSTEM: Normal AP diameter. No accessory muscle use. No wheezing, no crackles. ABDOMEN: Soft, bowel sounds present, nontender, no distention. CENTRAL NERVOUS SYSTEM: No facial droop. Speech is clear. Obeys simple commands. Moves extremities. EXTREMITIES: trace edema, no erythema seen. Left foot 1+ edemawarmth and minimal erythema appreciated. Results & Data Results & Data ([facility]) Vital Signs (Past 12 Hours) Vital Signs Temp Pulse Pulse Resp BP Pulse Ox 12/11/20 15:20 81 12/11/20 07:21 74 12/11/20 03:32 36.3 C L 74 18 145/80 H 94 (1) AMS (altered mental status) Altered mental status type: unspecified Qualified Code(s): R41.82 - Altered mental status, unspecified
--- NOTE | 2020-12-11 15:39 | Neurology Progress Note ---
Date of Service December 11, 2020 Assessment & Plan (1) AMS (altered mental status): Plan: 1. MRI brain with and without -no stroke 2. EEG- encephalopathy no seizure focus 3. still confused LP done today 4. TTE r/o cardiac source- no valvular disease. no ASD 5. toxic screen - negative 6. baseline would be helpful he is still confused and unable to keep focus on questions. 7. cultures resulted negative for growth 8. will need CTA head and neck - r/o vascular issues follow up with neurology 4-6 weeks, Elle Lo PAC (2) Fall: Plan: 1. PT/OT for discharge needs he should not be driving or living alone in his current state. rehab and then PCP help for placement and safety issues at home. Admission and Anticipated Discharge Date Admission Date: December 08, 2020 Supervising Physician Co-Signing Physician Notes Patient was seen and examined this afternoon after his lumbar puncture. He is resting supine. He is awake and conversive. Nursing at bedside. I did discuss this case with Elle Lo PA-C. Patient was admitted for altered mental status without clear explanation for symptoms. Work-up to date has been reassuring. No obvious signs of infection. Patient does not appear encephalopathic as he is very robustly awake alert and following simple commands although have to redirect frequently. Patient remains very tangential with rapid thoughts. I do not know this patient's baseline normalized got a chance to speak with the patient's family or anyone close to him to see what his baseline is like. I did review preliminary studies CSF studies and there is a mild elevated CSF protein with a normal glucose. CSF cell count shows a normal WBC and normal RBC. Liver enzyme was mildly elevated. -Recommend checking a sed rate and repeat CMP. Including liver enzymes. [place] is a 75 year old male with PMH- hypothyroidism, impaired fasting glucose, sleep apnea, emphysema, HTN, venous insufficiency, adenomatous polyp of colon, who was brought to [facility] 12/09/2020 by his [id number] because of confusion and fall. He lives alone and his ambulatory status is not that great, does not use any walker or cane. She lives about [address] from his house. On Tuesday he drove to gacmqx-ad-vzg's house and he seemed confused, did not make sense. She told him to go back to his house, followed him and found him fallenl on the driveway. He was able to climb steps and go inside the house. He didn't remember falling down, but he remembers going into the house and she found him to have a high temperature of 102 degrees. She kept a cool blanket and cooled him and he seemed to be okay, though he was not back to his usual baseline, but he was still somewhat confused, but he was much better. The following day she and another yjrqgik-gr-udt took Stewart outside to eat dinner on Tuesday and he was mostly back to baseline, but he was still somewhat confused, but he seemed okay. He was found more confused on day of admission and decided to bring him in. He states he had the flu about 2 weeks ago and took alot of OTC medications. according to nursing walking to the bathroom but unsteady. denies pain, new bowel or bladder issues. He had the LP today and he is currently lying flat to avoid LP headache. Review of Systems Review of Systems: All systems reviewed & are unremarkable except as noted in HPI & below Physical Exam Physical Exam: Physical Exam: Constitutional: appearance over nourished Ears, Nose, Mouth and Throat: mucous membranes moist, no injection and skin normal, eyes normal Cardiovascular: normal S-1 and S-2 and regular rate and rhythm Respiratory: course breath sounds Musculoskeletal: non pitting peripheral edema and good distal pulses Skin: no stigmata of neurocutaneous disease noted and normal and intact Eyes: extraocular muscles intact (EOMI) NEUROLOGIC EXAMINATION: Mental status: Alert and interactive Oriented today he is not oriented to hospital but does not know which one or the city, knows the month, year 2011, pen write with, can not identify button Oriented to person Speech fluent with no evidence of aphasia, rambles on about his past and his sister in law, circumstantially Cranial Nerves smile eye brow symmetric Sensory: light or cool touch Gait/Stance: lying flat in bed Strength: moving all ext spontaneously Results & Data ([facility]) Vital Signs (Past 12 Hours) Vital Signs Pulse 12/11/20 15:20 81 12/11/20 07:21 74 Laboratory Results Abnormal lab results 12/11/20 12/11/20 Range/Units 05:45 05:45 RBC 4.19 L (4.7-6.1) M/uL Hgb 13.2 L (14.0-18.0) g/dL Hct 39.1 L (42-52) % RDW Std Deviation 47.2 H (36.4-46.3) fL MPV 10.7 H (7.4-10.4) fL Sodium 133 L (136-145) mmol/L Potassium 3.4 L (3.5-5.1) mmol/L BUN/Creatinine Ratio 9.2 L (10-20) Calcium 8.3 L (8.5-10.1) mg/dl Diagnostic Findings Fluoroscopic guided lumbar puncture. Approximately 8 mL of clear CSF was collected into four separate vials. No immediate complications. (1) AMS (altered mental status) Altered mental status type: unspecified Qualified Code(s): R41.82 - Altered mental status, unspecified (2) Fall Encounter type: initial encounter Qualified Code(s): W19.XXXA - Unspecified fall, initial encounter
[2020-12-11 15:41] LABS: Total Protein CSF 67.5 mg/dl (15-45)
[2020-12-11] MEDS: cefTRIAXone SODIUM 2,000 MG in DEXTROSE 5% 50 ML IV SCH (15:43)
[2020-12-11 16:02] LABS: Appearance CSF Clear; CSF Count Tube # 3; Color CSF Colorless
[2020-12-11 16:04] LABS: CSF Xanthrochromic No xanthochromia; Red Blood Cell CSF (A) 9 /uL (0-); Red Blood Cell CSF (B) 7 /uL (0-); White Blood Cell CSF (A) 2 /uL (0-5); White Blood Cell CSF (B) 3 /uL (0-5)
[2020-12-11] MEDS ORDERED: OLANZapine 10 MG/2.1 ML SDV IM STA (17:17)
[2020-12-11] MEDS ORDERED: HALOPERIDOL LACTATE 5 MG/ML 1 ML VIAL IM STA (19:26)
[2020-12-11] MEDS: MELATONIN 3 MG TAB PO PRN (19:42)
[2020-12-11] MEDS: ATORVASTATIN 20 MG TAB PO SCH (19:43)
[2020-12-11] MEDS: TAMSULOSIN HCL 0.4 MG CAP PO SCH (19:43)
[2020-12-11] MEDS: LOSARTAN POTASSIUM 25 MG TAB PO SCH (19:43)
[2020-12-11] MEDS ORDERED: HALOPERIDOL LACTATE 5 MG/ML 1 ML VIAL IM PRN (21:25)
[2020-12-11] MEDS ORDERED: POTASSIUM CHLORIDE 40 MEQ in SODIUM CHLORIDE 0.9% 1000ML 1,000 ML IV ONE (22:00)
[2020-12-12 06:32] LABS: Hematocrit (blood only) 40.8 % (42-52); Hemoglobin 13.9 g/dL (14.0-18.0); Mean Corpuscular Hemoglobin 31.9 pg (25-34); Mean Corpuscular Hgb Conc 34.1 g/dL (32-36); Mean Corpuscular Volume 93.6 fL (80-100); Mean Platelet Volume 10.6 fL (7.4-10.4); Platelet Count 167 K/uL (130-400); RDW Coefficient of Variation 13.8 % (11.5-14.5); RDW Standard Deviation 47.2 fL (36.4-46.3); Red Blood Count 4.36 M/uL (4.7-6.1)
[2020-12-12] MEDS: LEVOTHYROXINE SODIUM 125 MCG TABLET PO SCH (06:33)
[2020-12-12 07:04] LABS: Albumin Level 2.8 gm/dl (3.4-5.0); BUN Creatinine Ratio 10.5 (10-20); Calcium 8.8 mg/dl (8.5-10.1); Creatinine Clr Calc Pharmacy 90.7 ml/min; Est GFR (African American) 98.8 ml/min; Est GFR (Non-African American) 85.2 ml/min; Magnesium 2.1 mg/dl (1.8-2.4); Potassium 3.5 mmol/L (3.5-5.1)
[2020-12-12 07:07] LABS: Albumin Globulin Ratio 0.7 (0.9-2); Bilirubin,Total 0.5 mg/dl (0.2-1); Globulin 4.3 gm/dl (2.5-4.0); Total Protein 7.1 gm/dl (6.4-8.2)
[2020-12-12] MEDS: FLUTICASONE PROPIONATE NA SPR 16 GM BTL SCH (09:53)
[2020-12-12] MEDS: TRIAMTERENE/HCTZ 37.5/25MG TAB PO SCH (09:53)
[2020-12-12] MEDS: POTASSIUM CHLORIDE CRTAB 20 MEQ TABCR PO SCH (09:53)
[2020-12-12] MEDS: ENOXAPARIN INJ 40 MG/0.4 ML SYR SQ SCH (09:57)
[2020-12-12] MEDS: cefTRIAXone SODIUM 2,000 MG in DEXTROSE 5% 50 ML IV SCH (16:32)
[2020-12-12] MEDS ORDERED: OPTIRAY 320 100ml IV ONE (16:57)
--- NOTE | 2020-12-12 17:37 | Hospitalist Progress Note ---
Date of Service December 12, 2020 Assessment & Plan (1) AMS (altered mental status): (2) Fever: (3) Ambulatory dysfunction: Plan: 75-year-old male with PMH of hypothyroidism, impaired fasting glucose, sleep apnea, emphysema, HTN, venous insufficiency, adenomatous polyp of colon was brought in 12/08 to our ED by his myppur-lw-upb Susie because of concern of confusion and fall. Patient lives alone and his ambulatory status is not that great but does not use any walker or cane per his MICHELLE. 2 days TA, MICHELLE noticed confusion and found him fall in the driveway. She also noted temperature of 102 degrees on the same day. Because he did not improve, he was brought to the ED. Per his MICHELLE, he is able to carry on meaningful conversation at baseline. #. AMS #. Fever of unknown origin #. 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 Temperature of 38.5C on 12/09. 12/08 pro-Chris negative. TSH WNL 12/09 MRI brain: No acute changes 12/09 EEG: Normal EEG without evidence of focal or generalized encephalopathy, without evidence of potentially epileptogenic activity. 12/10 echo: LV ejection fraction 55 to 60%, mild concentric LVH, grade 1 diastolic dysfunction. No evidence of atrial septal defect. 12/11: Lumbar puncture, follow-up with CSF studies ~See SF analysis: Clear, lactate slightly elevated [nonspecific], protein elevated at 67.5 --> could be a viral picture. ~CSF West Nile IgM antibody pending ~CSF herpes simplex virus DNA PCR pending ~Cryptococcal antigen test: Negative ~Gram stain negative for organisms, culture pending ~Fungal culture and AFB culture pending, AFB smear negative. Intermittent fever for last few days TOWER DIRECTOR. No source of infection identified so far for fever. 12/08 blood cultureno growth. WBC, pro-Chris and LA are normal. UA and CXR are unremarkable. No signs/symptoms of meningitis. Zosyn 12/09 changed to Rocephin 12/11 Patient pleasantly confused at bedside. Neurology on board: Follow-up with neurology in 4 to 6 weeks. Continue supportive care. Neurochecks. Continue to clinically monitor left f oot -->erythema/warmth resolved, swelling minimal. 12/12 CTAP with oral and IV contrast: Formal read pending. ID consultedDC Moo, check serology for syphilis and West Nile virus, check PCR for Babesia and Anaplasma. ID recommendation appreciated, await further results. #. Electrolytes abnormality Monitor as needed #. Anemia Hemoglobin low but stable Iron profile suggestive of iron deficiency anemia, normal ferritin storage Vitamin B12 and folate WNL. FOBT negative. Trend hemoglobin as needed, continue to monitor #. Ambulatory dysfunction Recent fall 2 days TOWER DIRECTOR Did not use any assistive device to walk around PT/OT on board: Continue PT/OT while inpatient, recommends outpatient OT after discharge from [facility]. #. Hypertension Stable, continue current medication. #. Hypothyroidism Continue home medication #. Impaired glucose tolerance test 5.8% Keep an eye on daily blood glucose #. Emphysema No shortness of breath, stable Do not take any medications #. DVT prophylaxis: On Lovenox, held for LP on 12/11 for 1 day. Resume 12/12 Full code Patient rnehwx-kx-wjl Susie was updated 12/10 about status of the patient and plan of care. She voiced understanding and was agreeable to the plan of care. Disposition: Patient likely to remain in hospital for next few days. Admission and Anticipated Discharge Date Admission Date: December 08, 2020 Subjective Patient lying in bed, sleeping, NAD, room air. On bedside exam, patient AO x0, minimally cooperative, ROS was not accessible. Per RN, no new events overnight. Patient has not eaten his breakfast in the morning at the time of examination. RN requested to contact me if the patient is not eating, we might need to put him on IV fluid in such case. His left foot swelling has decreased, no redness/erythema noted. Physical Exam Physical Exam: GENERAL: Alert, pleasantly confused. NAD, on RA. HEENT: No pallor, no icterus. Pupils equal, round and reactive to light. Oral mucosa moist. NECK: No JVD, no neck masses. HEART: S1 and S2 heard. Regular rate and rhythm. No murmur, no gallop. RESPIRATORY SYSTEM: Normal AP diameter. No accessory muscle use. No wheezing, no crackles. ABDOMEN: Soft, bowel sounds present, nontender, no distention. CENTRAL NERVOUS SYSTEM: No facial droop. Speech is clear. Obeys simple commands. Moves extremities. EXTREMITIES: trace edema, no erythema seen. Left foot 1+ edemaswelling has decreased, erythema/warmth not present. Results & Data Results & Data ([facility]) Vital Signs (Past 12 Hours) Vital Signs Temp Pulse Pulse Resp BP Pulse Ox Pulse Ox 12/12/20 17:25 36.8 C 68 18 142/88 H 98 98 12/12/20 12:03 92 12/12/20 12:02 92 12/12/20 12:01 36.6 C 72 16 124/68 98 12/12/20 08:00 36.8 C 62 14 128/68 92 (1) AMS (altered mental status) Altered mental status type: unspecified Qualified Code(s): R41.82 - Altered mental status, unspecified
[2020-12-12] MEDS: TAMSULOSIN HCL 0.4 MG CAP PO SCH (20:35)
[2020-12-12] MEDS: LOSARTAN POTASSIUM 25 MG TAB PO SCH (20:35)
[2020-12-12] MEDS: ATORVASTATIN 20 MG TAB PO SCH (20:35)
[2020-12-12] MEDS: MELATONIN 3 MG TAB PO PRN (20:35)
--- NOTE | 2020-12-12 20:39 | CT Scan Report ---
CT SCAN OF THE ABDOMEN AND PELVIS WITH IV CONTRAST CLINICAL HISTORY: Fever of unknown etiology. COMPARISON STUDY: Abdominal CT dated 12/08/2020. TECHNIQUE: Following the IV administration of 94 cc of Optiray 320, CT scan of the abdomen and pelvi s is performed from the lung bases to the proximal femora. Images are reviewed in the axial, sagittal , and coronal planes. IV contrast was administered without complication. Oral contrast was utilized. A dose lowering technique was utilized adhering to the principles of ALARA. The examination is degrad ed by motion artifact. FINDINGS: Lung bases: The heart is normal in size and without pericardial effusion. There are trace pleural eff usions with dependent atelectasis. There is a small hiatal hernia. Liver: The contrast-enhanced liver is normal in size, contour, and attenuation. There is no intrahepa tic biliary ductal dilatation. The hepatic veins and portal veins are patent. Gallbladder: Unremarkable. Spleen: Normal in size and attenuation. Pancreas: Unremarkable. Adrenal glands: Unremarkable. Kidneys: The contrast enhanced kidneys demonstrate mild cortical atrophy and are without hydronephros is. The kidneys enhance symmetrically. Abdominal vasculature: The abdominal aorta is normal in course and caliber noting advanced atheroscle rotic calcification. Bowel: There is no bowel obstruction. Enteric contrast reaches the right colon. The appendix is well -visualized and normal. Peritoneum: There is no intraperitoneal free air or abdominal ascites. Lymphadenopathy: None. Pelvic viscera: The prostate gland is mildly enlarged and heterogeneous noting median lobe hypertroph y. The bladder wall appears thickened and trabeculated indicating chronic outlet obstruction. Skeletal structures: The skeletal structures are osteopenic. There is moderate to advanced lumbosacra l spondylosis. No lytic or blastic lesions are seen. IMPRESSION: 1. Significantly motion compromised examination. 2. No acute infectious or inflammatory findings are identified in the abdomen or pelvis. 3. No bowel obstruction. 4. Trace pleural effusions are new from 12/08/2020. 5. Additional findings as above. ACT 112: Negative or not required by law. Electronically signed by: German Adkins M.D. 12/12/2020 8:38 PM
[2020-12-13] MEDS: LEVOTHYROXINE SODIUM 125 MCG TABLET PO SCH (06:03)
[2020-12-13 06:53] LABS: Hematocrit (blood only) 37.2 % (42-52); Hemoglobin 12.6 g/dL (14.0-18.0); Mean Corpuscular Hemoglobin 31.6 pg (25-34); Mean Corpuscular Hgb Conc 33.9 g/dL (32-36); Mean Corpuscular Volume 93.2 fL (80-100); Mean Platelet Volume 10.3 fL (7.4-10.4); Platelet Count 204 K/uL (130-400); RDW Coefficient of Variation 13.9 % (11.5-14.5); RDW Standard Deviation 47.7 fL (36.4-46.3); Red Blood Count 3.99 M/uL (4.7-6.1); White Blood Count 6.02 K/uL (4.8-10.8)
[2020-12-13 07:28] LABS: BUN Creatinine Ratio 15.9 (10-20); Calcium 8.5 mg/dl (8.5-10.1); Creatinine Clr Calc Pharmacy 96.8 ml/min; Est GFR (African American) 102.2 ml/min; Est GFR (Non-African American) 88.2 ml/min; Potassium 3.4 mmol/L (3.5-5.1)
[2020-12-13] MEDS ORDERED: POTASSIUM CHLORIDE CRTAB 20 MEQ TABCR PO STA (08:19)
[2020-12-13] MEDS: ENOXAPARIN INJ 40 MG/0.4 ML SYR SQ SCH (08:29)
[2020-12-13] MEDS: FLUTICASONE PROPIONATE NA SPR 16 GM BTL SCH (08:29)
[2020-12-13] MEDS: TRIAMTERENE/HCTZ 37.5/25MG TAB PO SCH (08:31)
[2020-12-13] MEDS: POTASSIUM CHLORIDE CRTAB 20 MEQ TABCR PO SCH (08:40)
--- NOTE | 2020-12-13 14:02 | Hospitalist Progress Note ---
Date of Service December 13, 2020 Assessment & Plan (1) AMS (altered mental status): (2) Fever: (3) Ambulatory dysfunction: Plan: 75-year-old male with PMH of hypothyroidism, impaired fasting glucose, sleep apnea, emphysema, HTN, venous insufficiency, adenomatous polyp of colon was brought in 12/08 to our ED by his lcnqet-kd-irh Susie because of concern of confusion and fall. Patient lives alone and his ambulatory status is not that great but does not use any walker or cane per his MICHELLE. 2 days TA, MICHELLE noticed confusion and found him fall in the driveway. She also noted temperature of 102 degrees on the same day. Because he did not improve, he was brought to the ED. Per his MICHELLE, he is able to carry on meaningful conversation at baseline. #. AMS #. Fever of unknown origin #. 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 Temperature of 38.5C on 12/09. 12/08 pro-Chris negative. TSH WNL 12/09 MRI brain: No acute changes 12/09 EEG: Normal EEG without evidence of focal or generalized encephalopathy, without evidence of potentially epileptogenic activity. 12/10 echo: LV ejection fraction 55 to 60%, mild concentric LVH, grade 1 diastolic dysfunction. No evidence of atrial septal defect. 12/11: Lumbar puncture, follow-up with CSF studies ~CSF analysis: Clear, lactate slightly elevated [nonspecific], protein elevated at 67.5 --> could be a viral picture. ~CSF West Nile IgM antibody pending ~CSF herpes simplex virus DNA PCR pending ~Cryptococcal antigen test: Negative ~Gram stain negative for organisms, culture pending ~Fungal culture and AFB culture pending, AFB smear negative. 12/12 CT abdomen pelvis: No acute infectious or inflammatory findings, no bowel obstruction. 12/13 T. pallidum pending, Anaplasma DNA pending, Babesia micro T DNA pending, West Nile RNA pending Intermittent fever for last few days CARTON LINER. No source of infection identified so far for fever. 12/08 blood cultureno growth. WBC, pro-Chris and LA are normal. UA and CXR are unremarkable. No signs/symptoms of meningitis. Zosyn 12/09 changed to Rocephin 12/11 --> stopped 12/12 per ID recommendation. ID on board DC Rocephin, check serology for syphilis and West Nile virus, check PCR for Babesia and Anaplasma. Patient AOx3 and seems clinically improved today. Neurology on board: Follow-up with neurology in 4 to 6 weeks. Continue supportive care. Neurochecks. Continue to clinically monitor left foot -->erythema/warmth resolved, swelling minimal. Await further results If patient stays calm, and maintains AOx3, will lift 1-1 tomorrow. #. Electrolytes abnormality Monitor as needed #. Anemia Hemoglobin low but stable Iron profile suggestive of iron deficiency anemia, normal ferritin storage Vitamin B12 and folate WNL. FOBT negative. Trend hemoglobin as needed, continue to monitor #. 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 #. Hypertension Stable, continue current medication. #. Hypothyroidism Continue home medication #. Impaired glucose tolerance test /A1c 5.8% Keep an eye on daily blood glucose #. Emphysema No shortness of breath, stable Do not take any medications #. DVT prophylaxis: On Lovenox, held for LP on 12/11 for 1 day. Resume 12/12 Full code Patient fwomkl-[id number] Susie was updated 12/10 about status of the patient and plan of care. She voiced understanding and was agreeable to the plan of care. Disposition: PT recommending SNF, CM to assist with DC planning. Patient needs off of one-to-one and i.m. antipsychotics per being accepted to SNF. Likely will remain 2 more days if no further issues arise. Admission and Anticipated Discharge Date Admission Date: December 08, 2020 Subjective Patient was sitting up in chair, fairly calm, just got done with his breakfast, AOx3, NAD, cooperative. Will advance his diet today. No acute events overnight. Patient complaining of left knee painnormal on examination, will give him Voltaren gel. Patient denies any fever/chills/chest pain/increased shortness of breath. Physical Exam Physical Exam: GENERAL: Alert, oriented x3. NAD, on RA. HEENT: No pallor, no icterus. Pupils equal, round and reactive to light. Oral mucosa moist. NECK: No JVD, no neck masses. HEART: S1 and S2 heard. Regular rate and rhythm. No murmur, no gallop. RESPIRATORY SYSTEM: Normal AP diameter. No accessory muscle use. No wheezing, no crackles. ABDOMEN: Soft, bowel sounds present, nontender, no distention. CENTRAL NERVOUS SYSTEM: No facial droop. Speech is clear. Obeys simple commands. Moves extremities. EXTREMITIES: trace edema, no erythema seen. Left foot 1+ edemaswelling has decreased, erythema/warmth not present. Results & Data Results & Data ([facility]) Vital Signs (Past 12 Hours) Vital Signs Temp Pulse Resp BP Pulse Ox 12/13/20 06:51 36.9 C 66 20 127/74 98 (1) AMS (altered mental status) Altered mental status type: unspecified Qualified Code(s): R41.82 - Altered mental status, unspecified
[2020-12-13] MEDS: DICLOFENAC SOD 1% GEL 100 GM TUBE EXT SCH ×2 (14:26→20:46)
[2020-12-13] MEDS: ATORVASTATIN 20 MG TAB PO SCH (20:46)
[2020-12-13] MEDS: LOSARTAN POTASSIUM 25 MG TAB PO SCH (20:47)
[2020-12-13] MEDS: TAMSULOSIN HCL 0.4 MG CAP PO SCH (20:47)
[2020-12-14] MEDS: DICLOFENAC SOD 1% GEL 100 GM TUBE EXT SCH ×4 (02:45→21:25)
[2020-12-14] MEDS: LEVOTHYROXINE SODIUM 125 MCG TABLET PO SCH (06:32)
[2020-12-14] MEDS: POTASSIUM CHLORIDE CRTAB 20 MEQ TABCR PO SCH (08:26)
[2020-12-14] MEDS: TRIAMTERENE/HCTZ 37.5/25MG TAB PO SCH (08:27)
[2020-12-14] MEDS: FLUTICASONE PROPIONATE NA SPR 16 GM BTL SCH (08:27)
[2020-12-14] MEDS: ENOXAPARIN INJ 40 MG/0.4 ML SYR SQ SCH (08:28)
--- NOTE | 2020-12-14 14:33 | Hospitalist Progress Note ---
Date of Service December 14, 2020 Assessment & Plan (1) AMS (altered mental status): (2) Fever: (3) Ambulatory dysfunction: Plan: 75-year-old male with PMH of hypothyroidism, impaired fasting glucose, sleep apnea, emphysema, HTN, venous insufficiency, adenomatous polyp of colon was brought in 12/08 to our ED by his [id number] Susie because of concern of confusion and fall. Patient lives alone and his ambulatory status is not that great but does not use any walker or cane per his MICHELLE. 2 days TA, MICHELLE noticed confusion and found him fall in the driveway. She also noted temperature of 102 degrees on the same day. Because he did not improve, he was brought to the ED. Per his MICHELLE, he is able to carry on meaningful conversation at baseline. #. AMS #. Fever of unknown origin #. 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 Temperature of 38.5C on 12/09. 12/08 pro-Chris negative. TSH WNL 12/09 MRI brain: No acute changes 12/09 EEG: Normal EEG without evidence of focal or generalized encephalopathy, without evidence of potentially epileptogenic activity. 12/10 echo: LV ejection fraction 55 to 60%, mild concentric LVH, grade 1 diastolic dysfunction. No evidence of atrial septal defect. 12/11: Lumbar puncture, follow-up with CSF studies ~CSF analysis: Clear, lactate slightly elevated [nonspecific], protein elevated at 67.5 --> could be a viral picture. ~CSF West Nile IgM antibody pending ~CSF herpes simplex virus DNA PCR pending ~Cryptococcal antigen test: Negative ~Gram stain negative for organisms, culture negative ~Fungal culture and AFB culture pending, AFB smear negative. 12/12 CT abdomen pelvis: No acute infectious or inflammatory findings, no bowel obstruction. 12/13 T. 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 No source of infection identified so far for fever. 12/08 blood cultureno growth. WBC, pro-Chris and LA are normal. UA and CXR are unremarkable. No signs/symptoms of meningitis. Zosyn 12/09 changed to Rocephin 12/11 --> stopped 12/12 per ID recommendation. ID on board DC Rocephin, check serology for syphilis and West Nile virus, check PCR for Babesia and Anaplasma. Patient in and out of altered mentation. Neurology on board: Follow-up with neurology in 4 to 6 weeks. Recommending Solu-Medrol 1000 mg daily for 3 days. Continue supportive care. Neurochecks. Continue to clinically monitor left foot -->erythema/warmth resolved, swelling minimal. Await further results We will continue with one-to-one. Reevaluate daily for possibility of lifting it. #. Electrolytes abnormality Monitor as needed #. Anemia Hemoglobin low but stable Iron profile suggestive of iron deficiency anemia, normal ferritin storage Vitamin B12 and folate WNL. FOBT negative. Trend hemoglobin as needed, continue to monitor #. 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 #. Hypertension Stable, continue current medication. #. Hypothyroidism Continue home medication #. Impaired glucose tolerance test A1c 5.8% Keep an eye on daily blood glucose #. Emphysema No shortness of breath, stable Do not take any medications #. DVT prophylaxis: On Lovenox, held for LP on 12/11 for 1 day. Resume 12/12 Full code Patient [id number] Susie was updated 12/10 about status of the patient and plan of care. She voiced understanding and was agreeable to the plan of care. Disposition: PT recommending SNF, CM to assist with DC planning. Patient needs off of one-to-one and i.m. antipsychotics for being accepted to SNF. Admission and Anticipated Discharge Date Admission Date: December 08, 2020 Subjective Patient was sitting up in chair, AO x1, could not cooperate and engage in talk. No acute events overnight. Per RN, patient had 2 loose bowels overnight and 1 in the morning. We will continue to monitor. Patient denies any fever/chills/chest pain/increased shortness of breath. Physical Exam Physical Exam: GENERAL: Alert, oriented x3. NAD, on RA. HEENT: No pallor, no icterus. Pupils equal, round and reactive to light. Oral mucosa moist. NECK: No JVD, no neck masses. HEART: S1 and S2 heard. Regular rate and rhythm. No murmur, no gallop. RESPIRATORY SYSTEM: Normal AP diameter. No accessory muscle use. No wheezing, no crackles. ABDOMEN: Soft, bowel sounds present, nontender, no distention. CENTRAL NERVOUS SYSTEM: No facial droop. Speech is clear. Obeys simple commands. Moves extremities. EXTREMITIES: trace edema, no erythema seen. Left foot 2+ edema erythema/warmth not present. Results & Data Results & Data ([facility]) Vital Signs (Past 12 Hours) Vital Signs Temp Pulse Resp BP Pulse Ox 12/14/20 11:27 36.4 C L 97 H 20 133/75 98 (1) AMS (altered mental status) Altered mental status type: unspecified Qualified Code(s): R41.82 - Altered mental status, unspecified
--- NOTE | 2020-12-14 15:06 | Progress Notes ---
NEUROLOGY PROGRESS NOTE DATE: 12/14/2020. SUBJECTIVE: The patient was seen and examined. He is sitting upright in chair with a sitter next to him. He is very repetitive in his speech and is concerned about his car as well as money. He is pe rseverating. He is disoriented to the location. Although oriented to his age. He denies any pain. He continuously requests to be discharged. He remains confused. OBJECTIVE: Vital signs: Blood pressure 133/75, pulse is 97, respiratory rate is 20, temperature is 36.4 degrees Celsius, oxygen saturation is 98% on room air. The patient appears stated age, no distr ess. His head is normocephalic and atraumatic. Normal eyelids. Normal respiratory effort. Normal cardiac pulses. Abdomen: Nondistended. Normal mood, although tangential and at times very talkativ e. He is awake, alert, oriented to his age. Oriented to the year. His attention is decreased. His kno wledge is poor. He is following simple commands. His speech is clear. Extraocular muscles are inta ct. Facial sensation is intact. No facial asymmetry. Intact hearing. Palate symmetric. Good shou lder shrug. Tongue midline. Gait and evaluation wide-based ambulating with a walker to the bathroom , no tremor or myoclonic jerks. Sensation is intact. DIAGNOSTIC TESTING AND LABORATORY VALUES: WBC 6.02, hemoglobin 12.6, platelet count 204. Sodium 136 , potassium 3.4, chloride 103, carbon dioxide 28, BUN 13, creatinine 0.81, CSF studies showed clear c olorless fluid, no xanthochromia. Two wbc's in the CSF. There are 9 rbc's in the CSF. CSF glucose i s normal at 58. CSF lactate is 2.6. CSF total protein is mildly elevated at 67.5. CSF West Nile is pending. Lyme was negative. COVID was negative. SARS was negative. West Nile is pending. Herpes virus is pending. HSV 1 and 2 are pending. MRI of the brain showed no acute intracranial findings. No intracranial mass or pathological enhance ment. Mild motion artifact, [id number]-[id number] cerebral atrophy. White matter hyperintensities suggest emmie of small vessel disease. CT chest, abdomen and pelvis, significant motion compromised exam. No acute infectious or inflammator y findings. No bowel obstruction. Trace pleural effusions. Cerebral spinal fluid cultures showed no organisms seen. No growth. No yeast or fungus isolated. Blo od culture showed no growth. ASSESSMENT AND PLAN: A 75-year-old male admitted on 12/09/2020 for reported outside fever as well as altered mental status. Has been admitted to the hospital with extensive workup including MRI of the brain, EEG, blood cultures, labs and CSF studies. He has also had CT chest, abdomen and pelvis. To date some of the findings include a mildly elevated CSF protein as well as a CSF lactate. The patie nt to date has remained altered. I did discuss extensively on Tuesday with a family member, sister-in -law. This is an acute change in the patient's mental status. Otherwise, he is usually very indepen dent and takes care of his ADLs. The patient remains altered today discussing at length getting his car/money and often engaging in nonrelevant conversation. He certainly is confused and unable to tel l me who the president is. Clinical presentation seems unlikely due to delirium as his level of cons ciousness has remained quite well. He is very alert. I would recommend obtaining an anti-TPO antibo dy as an outpatient. This certainly could be a progression into a frontotemporal lobe dementia or Al zheimer's type dementia with behavioral variant. However, given the acute onset, it seems less likel y. My recommendation, given the negative workup to date, and the patient remains altered, would be t o try a trial of steroids. Recommend 3 days of 1000 mg of IV Solu-Medrol. 1000 mg daily x3 days. N eurology will otherwise continue to follow. While on steroids, would recommend GI prophylaxis. Job ID: [id number]
[2020-12-14] MEDS: methylPREDNISolone 1,000 MG in DEXTROSE 5% 250 ML IV SCH (16:31)
[2020-12-14] MEDS: MELATONIN 3 MG TAB PO PRN (21:26)
[2020-12-14] MEDS: TAMSULOSIN HCL 0.4 MG CAP PO SCH (21:26)
[2020-12-14] MEDS: LOSARTAN POTASSIUM 25 MG TAB PO SCH (21:26)
[2020-12-14] MEDS: ATORVASTATIN 20 MG TAB PO SCH (21:26)
[2020-12-15] MEDS: DICLOFENAC SOD 1% GEL 100 GM TUBE EXT SCH ×4 (01:57→20:34)
[2020-12-15] MEDS: LEVOTHYROXINE SODIUM 125 MCG TABLET PO SCH (06:44)
[2020-12-15 07:47] LABS: Hematocrit (blood only) 44.4 % (42-52); Hemoglobin 14.6 g/dL (14.0-18.0); Mean Corpuscular Hemoglobin 31.7 pg (25-34); Mean Corpuscular Hgb Conc 32.9 g/dL (32-36); Mean Corpuscular Volume 96.5 fL (80-100); Mean Platelet Volume 11.1 fL (7.4-10.4); Platelet Count 245 K/uL (130-400); RDW Coefficient of Variation 14.1 % (11.5-14.5); RDW Standard Deviation 50.2 fL (36.4-46.3); White Blood Count 4.63 K/uL (4.8-10.8)
[2020-12-15 08:14] LABS: BUN Creatinine Ratio 20.4 (10-20); Creatinine Clr Calc Pharmacy 76.4 ml/min; Est GFR (African American) 83.1 ml/min; Est GFR (Non-African American) 71.7 ml/min; Magnesium 2.1 mg/dl (1.8-2.4); Potassium 4.2 mmol/L (3.5-5.1)
[2020-12-15] MEDS: POTASSIUM CHLORIDE CRTAB 20 MEQ TABCR PO SCH (09:28)
[2020-12-15] MEDS: TRIAMTERENE/HCTZ 37.5/25MG TAB PO SCH (09:28)
[2020-12-15] MEDS: FLUTICASONE PROPIONATE NA SPR 16 GM BTL SCH (09:29)
[2020-12-15] MEDS: ENOXAPARIN INJ 40 MG/0.4 ML SYR SQ SCH (09:29)
[2020-12-15] MEDS ORDERED: FUROSEMIDE 20 MG in SYRINGE 0 ML IV ONE (09:45)
[2020-12-15] MEDS: methylPREDNISolone 1,000 MG in DEXTROSE 5% 250 ML IV SCH (09:45)
--- NOTE | 2020-12-15 15:58 | Hospitalist Progress Note ---
Date of Service December 15, 2020 Assessment & Plan (1) AMS (altered mental status): (2) Fever: (3) Ambulatory dysfunction: Plan: 75-year-old male with PMH of hypothyroidism, impaired fasting glucose, sleep apnea, emphysema, HTN, venous insufficiency, adenomatous polyp of colon was brought in 12/08 to our ED by his [id number] Susie because of concern of confusion and fall. Patient lives alone and his ambulatory status is not that great but does not use any walker or cane per his MICHELLE. 2 days TA, MICHELLE noticed confusion and found him fall in the driveway. She also noted temperature of 102 degrees on the same day. Because he did not improve, he was brought to the ED. Per his MICHELLE, he is able to carry on meaningful conversation at baseline. #. AMS #. Fever of unknown origin #. Left foot erythema/warmth/minimal rednessnoted 12/11, non tender Patient noted to be confused and one episode of fall 2 days [employer] Patient also noted to have temperature 102F at home. Temperature of 38.5C on 12/09. 12/08 pro-Chris negative. TSH WNL 12/09 MRI brain: No acute changes 12/09 EEG: Normal EEG without evidence of focal or generalized encephalopathy, without evidence of potentially epileptogenic activity. 12/10 echo: LV ejection fraction 55 to 60%, mild concentric LVH, grade 1 diastolic dysfunction. No evidence of atrial septal defect. 12/11: Lumbar puncture, follow-up with CSF studies ~CSF analysis: Clear, lactate slightly elevated [nonspecific], protein elevated at 67.5 --> could be a viral picture. ~CSF West Nile IgM antibody pending ~CSF herpes simplex virus DNA PCR pending ~Cryptococcal antigen test: Negative ~Gram stain negative for organisms, culture negative ~Fungal culture and AFB culture pending, AFB smear negative. 12/12 CT abdomen pelvis: No acute infectious or inflammatory findings, no bowel obstruction. 12/13 T. pallidum pending, Anaplasma DNA pending, Babesia micro T DNA pending, West Nile RNA pending Intermittent fever for last few days [employer]. No source of infection identified so far for fever. 12/08 blood cultureno growth. WBC, pro-Chris and LA are normal. UA and CXR are unremarkable. No signs/symptoms of meningitis. Zosyn 12/09 changed to Rocephin 12/11 --> stopped 12/12 per ID recommendation. ID on board DC Rocephin, check serology for syphilis and West Nile virus, check PCR for Babesia and Anaplasma. Patient in and out of altered mentation. Neurology on board: Follow-up with neurology in 4 to 6 weeks. Patient received Solu-Medrol 12/14 and 12/15 per neurology recommendation, 12/15 advised to DC Solu- Medrol as neurology thinks it is most likely dementia worsening. Continue supportive care. Neurochecks. Continue to clinically monitor left foot -->erythema/warmth resolved, swelling minimal. Await further results, patient most likely need placement. Will get psychiatry on board for worsening dementia. We will continue with one-to-one. Reevaluate daily for possibility of lifting it. #. Electrolytes abnormality Monitor as needed #. Anemia Hemoglobin low but stable Iron profile suggestive of iron deficiency anemia, normal ferritin storage Vitamin B12 and folate WNL. FOBT negative. Trend hemoglobin as needed, continue to monitor #. Ambulatory dysfunction Recent fall 2 days [employer] Did not use any assistive device to walk around PT/OT on board: Continue PT/OT while inpatient, PT recommends SNF. #. Hypertension Stable, continue current medication. #. Hypothyroidism Continue home medication #. Impaired glucose tolerance test /A1c 5.8% Keep an eye on daily blood glucose #. Emphysema No shortness of breath, stable Do not take any medications #. DVT prophylaxis: On Lovenox, held for LP on 12/11 for 1 day. Resume 12/12 Full code Patient [id number] Susie was updated 12/10 about status of the patient and plan of care. She voiced understanding and was agreeable to the plan of care. Disposition: PT recommending SNF, CM to assist with DC planning. Patient needs off of one-to-one and i.m. antipsychotics for being accepted to SNF. Admission and Anticipated Discharge Date Admission Date: December 08, 2020 Subjective Patient was sitting up in chair, AO x3, able to cooperate and engage in talk better than yesterday. No acute events overnight. No further loose bowel movements. We will continue to monitor. Patient denies any fever/chills/chest pain/increased shortness of breath. Physical Exam Physical Exam: GENERAL: Alert, oriented x3. NAD, on RA. HEENT: No pallor, no icterus. Pupils equal, round and reactive to light. Oral mucosa moist. NECK: No JVD, no neck masses. HEART: S1 and S2 heard. Regular rate and rhythm. No murmur, no gallop. RESPIRATORY SYSTEM: Normal AP diameter. No accessory muscle use. No wheezing, no crackles. ABDOMEN: Soft, bowel sounds present, nontender, no distention. CENTRAL NERVOUS SYSTEM: No facial droop. Speech is clear. Obeys simple commands. Moves extremities. EXTREMITIES: trace edema, no erythema seen. Left foot 2+ edema erythema/warmth not present. Results & Data Results & Data ([facility]) Vital Signs (Past 12 Hours) Vital Signs Temp Pulse Pulse Resp BP BP BP 12/15/20 15:04 36.2 C L 85 20 148/78 H 12/15/20 12:50 36.5 C 65 16 114/71 12/15/20 07:36 80 18 146/74 H 12/15/20 07:00 47 L Pulse Ox 12/15/20 15:04 93 12/15/20 12:50 96 12/15/20 07:36 96 12/15/20 07:00 (1) AMS (altered mental status) Altered mental status type: unspecified Qualified Code(s): R41.82 - Altered mental status, unspecified
--- NOTE | 2020-12-15 16:38 | Neurology Progress Note ---
Date of Service December 15, 2020 Assessment & Plan (1) Dementia: Plan: Mr. Miranda is a pleasant 75-year-old male with suspected dementia probably Alzheimer's variant which is presenting with confusion and memory loss. I have now had the chance to see and evaluate this patient since of last week. I do not see any strong signs to suggest that he is encephalopathic as his clinical presentation has remained quite stable without any alteration in the le bandar of consciousness. He did receive a round of steroids this morning although upon further assessment I do not believe this clinical history or presentation is consistent with with a steroid responsive encephalopathy or aseptic meningitis/encephalitis. It is not uncommon for patients with dementia to have an elevated CSF protein. The CSF profile was not suggestive of a CSF infection. There are some studies still pending. At this point I would recommend stopping IV steroids. Patient will benefit from formal neuropsychological testing as an outpatient. Patient likely will require some form of placement. Please contact me with any additional questions or concerns while he is inpatient otherwise neurology will sign off for now. Admission and Anticipated Discharge Date Admission Date: December 08, 2020 Subjective Patient was seen and examined this afternoon. Sitter at bedside. Patient is upright in chair pleasant. He is following simple commands. He still remains somewhat tangential and confused. He does not recall seeing me the other day. He tends to ask repetitive questions as well as at times is talking about irrelevant stuff. Physical Exam Physical Exam: Patient is awake alert oriented to his age. He is oriented to the location. He is unable to tell me the year or the month. He is following some simple commands that show me your tongue show me your left hand. He is ambulating to the bathroom. He has no tremor. No myoclonic jerks. Face is symmetric. Speech is fast although clear. Extraocular muscles are intact. Eyes are midline tongue is midline. He has no ataxia with finger-nose testing no focal weakness. Results & Data ([facility]) Vital Signs (Past 12 Hours) Vital Signs Temp Pulse Pulse Resp BP BP BP 12/15/20 15:04 36.2 C L 85 20 148/78 H 12/15/20 14:20 79 12/15/20 12:50 36.5 C 65 16 114/71 12/15/20 07:36 80 18 146/74 H 12/15/20 07:00 47 L Pulse Ox 12/15/20 15:04 93 09/27/21 14:20 12/15/20 12:50 96 12/15/20 07:36 96 12/15/20 07:00
[2020-12-15] MEDS: LOSARTAN POTASSIUM 25 MG TAB PO SCH (20:34)
[2020-12-15] MEDS: TAMSULOSIN HCL 0.4 MG CAP PO SCH (20:35)
[2020-12-15] MEDS: MELATONIN 3 MG TAB PO PRN (20:35)
[2020-12-15] MEDS: ATORVASTATIN 20 MG TAB PO SCH (20:35)
[2020-12-15 22:06] LABS: HSV Type 1 DNA Not Detected (Not Detected); HSV Type 1&2 DNA Source CSF; HSV Type 2 DNA Not Detected (Not Detected)
[2020-12-16] MEDS: DICLOFENAC SOD 1% GEL 100 GM TUBE EXT SCH ×3 (01:38→16:05)
[2020-12-16] MEDS: LEVOTHYROXINE SODIUM 125 MCG TABLET PO SCH (06:28)
[2020-12-16 08:37] LABS: Hematocrit (blood only) 39.3 % (42-52); Hemoglobin 13.3 g/dL (14.0-18.0); Mean Corpuscular Hemoglobin 31.3 pg (25-34); Mean Corpuscular Hgb Conc 33.8 g/dL (32-36); Mean Corpuscular Volume 92.5 fL (80-100); Mean Platelet Volume 10.1 fL (7.4-10.4); Platelet Count 295 K/uL (130-400); RDW Coefficient of Variation 14.1 % (11.5-14.5); RDW Standard Deviation 47.5 fL (36.4-46.3); Red Blood Count 4.25 M/uL (4.7-6.1); White Blood Count 9.61 K/uL (4.8-10.8)
[2020-12-16] MEDS: POTASSIUM CHLORIDE CRTAB 20 MEQ TABCR PO SCH (09:03)
[2020-12-16] MEDS: TRIAMTERENE/HCTZ 37.5/25MG TAB PO SCH (09:03)
[2020-12-16] MEDS: ENOXAPARIN INJ 40 MG/0.4 ML SYR SQ SCH (09:04)
[2020-12-16] MEDS: FLUTICASONE PROPIONATE NA SPR 16 GM BTL SCH (09:04)
--- NOTE | 2020-12-16 15:34 | Psychiatric Consultation ---
Date of Consultation December 16, 2020 Impression / Recommendations Impression This is a 75-year-old male with significant dementia. At this time, patient is in good behavioral control without episodes of aggression or agitation. His cognitive status however will dictate that patient will require placement or 24- hour care. He is unable to care for himself in his current state of mind. In the future patient may become more confused which has the possibility to lead to agitation or aggression. He has not required any medications for agitation during this hospitalization but may need some in the future. In that case patient may benefit from low-dose antipsychotic medication such as quetiapine 25 mg q8 hours as needed for agitation. (1) Dementia: Consider neurology outpatient care for management of dementia. Patient without behavioral concerns at this time, no further management from a psychiatric perspective. Would consider providing patient/caregivers with as needed medication for agitation, Seroquel 25 mg every 8 hours as needed for agitation should suffice. It should be explained to caregiver that this medication comes with blackbox warning risk of in patients with dementia. Psych History Chief Complaint "Oh well I am having a good time here currently". History of Present Illness HPI as per psychiatric liaison "Met with pt for initial psych consult for confusion. Pt was focused on discharge during conversation. He kept stating, "just sign the paperwork and I'll get in touch with my sister in law and she'll come pick me up." Pt was unable to recall where he was but was able to state who current president was, the month and season. He looked at the calendar on the board to recall the date. Pt has no recollection of events prior to hospitalization. He denies falling and denies being confused. Again, he is fixated on discharge. He is pleasant during interaction but states the need to get paperwork signed so he can go home repeatedly. 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 Unable to hold meaningful conversation with patient, although he is pleasant and easily redirectable. Patient seems to follow simple commands without issue with the exception of remaining quiet as patient is quite talkative in a nonsensical manner. Despite his lack of mental functioning, patient has been in good behavioral control without episodes of agitation or aggression. Patient is amendable to any medication changes or placement options. Further conversation with the patient was deemed to be not helpful or useful. Allergies Allergy/AdvReac Type Severity Reaction Status Date / Time No Known Allergies Allergy Unverified 12/08/20 18:19 Home Medications Medication Instructions Recorded Confirmed Type atorvastatin 20 mg tablet 20 mg PO QPM 12/08/20 12/08/20 History fluticasone propionate 50 2 spray INTRANASAL DAILY 12/08/20 12/08/20 History mcg/actuation nasal spray,suspension furosemide 40 mg tablet 40 mg PO BID 12/08/20 12/08/20 History ibuprofen 200 mg tablet 200 mg PO AMPM 12/08/20 12/08/20 History levothyroxine 125 mcg tablet 125 mcg PO QAM 12/08/20 12/08/20 History losartan 25 mg tablet 25 mg PO QPM 12/08/20 12/08/20 History vvrljwaukjjd-ulf-ijmlh acid-vit 1 tab PO QAM 12/08/20 12/08/20 History K-lycop 400 mcg-20 mcg-370 mcg tablet (One-A-Day Men's 50 Plus) potassium chloride 20 mEq 20 meq PO QAM 12/08/20 12/08/20 History tablet,extended release(part/cryst) triamterene 75 0.5 tab PO QAM 12/08/20 12/08/20 History mg-hydrochlorothiazide 50 mg tablet Patient History Social History Smoking Status: Unknown if ever smoked Preferred Language: Spanish 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 marital status: / Current Living Situation: Alone How many Children do You have: 0 Feels Safe at Home: Yes Assistive Devices: Walker Physical Exam Psychiatric: Orientation: alert and oriented to person Apperance: appeared stated age Eye Contact: good eye contact Motor Behavior: no abnormal motor movements Speech: normal rate/rhythm/volume of speech Talkative Affect: euthymic affect Mood: no depressed mood and no anxious mood Thought Process: + tangential thought process, + flight of ideas, + confabulations and + concrete thought process Thought Content: reality based without delusions Suicidal Thoughts: denies suicidal thoughts Homicidal Thoughts: denies homicidal thoughts Hallucinations: no auditory hallucinations Cognition: attention grossly intact; + recent memory not intact and + remote memory not intact Insight: + limited insight Judgement: + poor judgement Vital Signs (Past 24 Hours): Last Vital Signs Temp 36.6 C 12/15/20 22:29 Pulse 56 L 12/16/20 07:35 Resp 20 12/15/20 22:29 BP 137/86 12/15/20 22:29 Pulse Ox 94 12/15/20 22:29 Review of Systems All systems reviewed & are unremarkable except as noted in HPI & below Results & Data (PSY) Medications Administered Atorvastatin Calcium (Atorvastatin 20 Mg Tab) 20 mg PO QPM MIGUEL Stop: 01/08/21 20:59 Last Admin: 12/15/20 20:35 Dose: 20 mg Documented by: [id number] Admin: 12/14/20 21:26 Dose: 20 mg Documented by: [id number] Admin: 12/13/20 20:46 Dose: 20 mg Documented by: [id number] Admin: 12/12/20 20:35 Dose: 20 mg Documented by: [id number] Admin: 12/11/20 19:43 Dose: 20 mg Documented by: [id number] Admin: 12/10/20 21:13 Dose: 20 mg Documented by: [id number] Admin: 12/09/20 20:38 Dose: 20 mg Documented by: [id number] Diclofenac Sodium (Diclofenac Sod 1% Gel 100 Gm Tube) 2 gm EXT Q6H MIGUEL Stop: 01/12/21 12:59 Last Admin: 12/16/20 09:03 Dose: 2 gm Documented by: [id number] Admin: 12/16/20 01:38 Dose: Not Given Documented by: [id number] Admin: 12/15/20 20:34 Dose: 2 gm Documented by: [id number] Admin: 12/15/20 13:46 Dose: 2 gm Documented by: [id number] Admin: 12/15/20 09:26 Dose: 2 gm Documented by: [id number] Admin: 12/15/20 01:57 Dose: Not Given Documented by: [id number] Admin: 12/14/20 21:25 Dose: 2 gm Documented by: [id number] Admin: 12/14/20 14:30 Dose: 2 gm Documented by: [id number] Admin: 12/14/20 08:28 Dose: 2 gm Documented by: [id number] Admin: 12/14/20 02:45 Dose: Not Given Documented by: [id number] Admin: 12/13/20 20:46 Dose: 2 gm Documented by: [id number] Admin: 12/13/20 14:26 Dose: 2 gm Documented by: [id number] Enoxaparin Sodium (Enoxaparin Inj 40 Mg/0.4 Ml Syr) 40 mg SQ QAM MIGUEL Stop: 01/11/21 08:59 Last Admin: 12/16/20 09:04 Dose: 40 mg Documented by: [id number] Admin: 12/15/20 09:29 Dose: 40 mg Documented by: [id number] Admin: 12/14/20 08:28 Dose: 40 mg Documented by: [id number] Admin: 12/13/20 08:29 Dose: 40 mg Documented by: [id number] Admin: 12/12/20 09:57 Dose: 40 mg Documented by: [id number] Fluticasone Propionate (Fluticasone Propionate Na Spr 16 Gm Btl) 2 sprays NA DAILY MIGUEL Stop: 01/08/21 08:59 Last Admin: 12/16/20 09:04 Dose: 2 sprays Documented by: [id number] Admin: 12/15/20 09:29 Dose: 2 sprays Documented by: [id number] Admin: 12/14/20 08:27 Dose: 2 sprays Documented by: [id number] Admin: 12/13/20 08:29 Dose: 2 sprays Documented by: [id number] Admin: 12/12/20 09:53 Dose: Not Given Documented by: [id number] Admin: 12/11/20 08:10 Dose: 2 sprays Documented by: [id number] Admin: 12/10/20 08:21 Dose: 2 sprays Documented by: [id number] Admin: 12/09/20 08:33 Dose: 2 sprays Documented by: [id number] Furosemide (Furosemide 40 Mg Tab) 40 mg PO BID17 MIGUEL Stop: 01/08/21 08:59 Last Admin: 12/11/20 15:42 Dose: 40 mg Documented by: [id number] Admin: 12/11/20 08:10 Dose: 40 mg Documented by: [id number] Admin: 12/10/20 16:17 Dose: 40 mg Documented by: [id number] Admin: 12/10/20 08:23 Dose: 40 mg Documented by: [id number] Admin: 12/09/20 16:35 Dose: 40 mg Documented by: [id number] Admin: 12/09/20 08:34 Dose: 40 mg Documented by: [id number] Levothyroxine Sodium (Levothyroxine Sodium 125 Mcg Tablet) 125 mcg PO DAILYBB MIGUEL Stop: 01/08/21 06:29 Last Admin: 12/16/20 06:28 Dose: 125 mcg Documented by: [id number] Admin: 12/15/20 06:44 Dose: 125 mcg Documented by: [id number] Admin: 12/14/20 06:32 Dose: 125 mcg Documented by: [id number] Admin: 12/13/20 06:03 Dose: 125 mcg Documented by: [id number] Admin: 12/12/20 06:33 Dose: 125 mcg Documented by: [id number] Admin: 12/11/20 05:02 Dose: 125 mcg Documented by: [id number] Admin: 12/10/20 05:37 Dose: 125 mcg Documented by: [id number] Admin: 12/09/20 06:20 Dose: 125 mcg Documented by: [id number] Losartan Potassium (Losartan Potassium 25 Mg Tab) 25 mg PO QPM MIGUEL Stop: 01/08/21 20:59 Last Admin: 12/15/20 20:34 Dose: 25 mg Documented by: [id number] Admin: 12/14/20 21:26 Dose: 25 mg Documented by: [id number] Admin: 12/13/20 20:47 Dose: 25 mg Documented by: [id number] Admin: 12/12/20 20:35 Dose: 25 mg Documented by: [id number] Admin: 12/11/20 19:43 Dose: 25 mg Documented by: [id number] Admin: 12/10/20 21:13 Dose: 25 mg Documented by: [id number] Admin: 12/09/20 20:38 Dose: 25 mg Documented by: [id number] Melatonin (Melatonin 3 Mg Tab) 3 mg PO HS PRN PRN Reason: Sleep Stop: 01/10/21 19:25 Last Admin: 12/15/20 20:35 Dose: 3 mg Documented by: [id number] Admin: 12/14/20 21:26 Dose: 3 mg Documented by: [id number] Admin: 12/12/20 20:35 Dose: 3 mg Documented by: [id number] Admin: 12/11/20 19:42 Dose: 3 mg Documented by: [id number] Potassium Chloride (Potassium Chloride Crtab 20 Meq Tabcr) 20 meq PO QAM MIGUEL Stop: 01/08/21 08:59 Last Admin: 12/16/20 09:03 Dose: 20 meq Documented by: [id number] Admin: 12/15/20 09:28 Dose: 20 meq Documented by: [id number] Admin: 12/14/20 08:26 Dose: 20 meq Documented by: [id number] Admin: 12/13/20 08:40 Dose: 20 meq Documented by: [id number] Admin: 12/12/20 09:53 Dose: Not Given Documented by: [id number] Admin: 12/11/20 08:10 Dose: 20 meq Documented by: [id number] Admin: 12/10/20 08:22 Dose: 20 meq Documented by: [id number] Admin: 12/09/20 08:34 Dose: 20 meq Documented by: [id number] Tamsulosin HCl (Tamsulosin Hcl 0.4 Mg Cap) 0.4 mg PO HS MIGUEL Stop: 01/08/21 22:09 Last Admin: 12/15/20 20:35 Dose: 0.4 mg Documented by: [id number] Admin: 12/14/20 21:26 Dose: 0.4 mg Documented by: [id number] Admin: 12/13/20 20:47 Dose: 0.4 mg Documented by: [id number] Admin: 12/12/20 20:35 Dose: 0.4 mg Documented by: [id number] Admin: 12/11/20 19:43 Dose: 0.4 mg Documented by: [id number] Admin: 12/10/20 21:13 Dose: 0.4 mg Documented by: [id number] Admin: 12/09/20 23:08 Dose: 0.4 mg Documented by: [id number] Triamterene/Hydrochlorothiazide (Triamterene/Hctz 37.5/25mg Tab) 0.5 tab PO QAM MIGUEL Stop: 01/08/21 08:59 Last Admin: 12/16/20 09:03 Dose: 0.5 tab Documented by: [id number] Admin: 12/15/20 09:28 Dose: 0.5 tab Documented by: [id number] Admin: 12/14/20 08:27 Dose: 0.5 tab Documented by: [id number] Admin: 12/13/20 08:31 Dose: 0.5 tab Documented by: [id number] Admin: 12/12/20 09:53 Dose: Not Given Documented by: [id number] Admin: 12/11/20 08:11 Dose: 0.5 tab Documented by: [id number] Admin: 12/10/20 08:22 Dose: 0.5 tab Documented by: [id number] Admin: 12/09/20 08:34 Dose: 0.5 tab Documented by: [id number] Coding Level of Care Code 91576 U Intl Hosp Care Lvl 2 Diagnoses Dementia F03.90 Time Spent (min) 35
--- NOTE | 2020-12-16 15:39 | Discharge Summary ---
Date of Service December 16, 2020 Admission HPI Per Admitting Provider DATE OF ADMISSION: 12/08/2020. CHIEF COMPLAINT: Confusion and fall. HISTORY OF PRESENT ILLNESS: A 75-year-old male with past medical history significant for hypothyroidism, impaired fasting glucose, sleep apnea, emphysema, hypertension, venous insufficiency, history of adenomatous polyp of colon, who was brought in by his cvsvoc-in-lmj because of confusion and fall. As per the qhsefc-ry-wrl, the patient lives alone and his ambulatory status is not that great, does not use any walker or cane. The riecgk-eh-wpc lives about [address] his house. On Tuesday he drove to iuyrnr-uv-dgg 's house and he seemed confused, did not make sense. She told him to go back to his house, but she followed him and she found him fall on the driveway. Then he was able to climb steps and go inside the house. As per zsvkmd-he-jps, the patient does not remember falling down, but he remembers going into the house and she found him to have a high temperature of 102 degrees. She kept a cool blanket and cooled him and he seemed to be okay, though he was not back to his usual baseline, but he was still somewhat confused, but he was much better. The next day, she and another wnxxmch-my-nbb and the patient went outside to eat dinner on Tuesday and he was mostly back to baseline, but he was still somewhat confused, but he seemed okay and again today on Tuesday again, he was more confused and that is the reason she brought him here. Here in the ER, he is afebrile. Can tell his name, does not know where he is. Sometimes he just talks, blabbers, does not make any sense, but he seemed to understand simple commands. Hemodynamically stable. No leukocytosis. Electrolytes are okay. Glucose is okay. Lactate is 2. Procalcitonin 0.34. Urinalysis, no obvious infection. Lyme screen negative. SARS-CoV-2 PCR negative. Chest x-ray, no acute findings. CT of the head, no acute findings. CT abdomen and pelvis with IV contrast, no acute findings. Could not get any history from the patient. As per the sister in law, there were no complaints of any pain. No complaint of chest pain or back pain or neck pain or abdominal pain. No nausea or vomiting. Does not have any diarrhea. His appetite was okay and he was swallowing ok. ALLERGIES: No known drug allergies. PAST MEDICAL HISTORY: As mentioned above. PAST SURGICAL HISTORY: Colonoscopies, tonsillectomy. MEDICATIONS: The patient is on losartan, atorvastatin 20 mg p.o. daily, Flonase 2 sprays intranasal daily, Lasix 40 mg p.o. b.i.d., ibuprofen daily, levothyroxine 125 mcg p.o. daily, losartan 25 mg p.o. daily, multivitamins 1 tablet p.o. daily, potassium chloride 20 mEq p.o. daily, triamterene/hydrochlorothiazide 75/50 mg half tablet daily. FAMILY HISTORY: Significant for no family history on file. SOCIAL HISTORY: , currently lives alone. Quit smoking in 1997, smoked 1 pack a day for 30 years. No alcohol use. No drug use. REVIEW OF SYSTEMS: Unobtainable at this time. Admission Exam Per Admitting Provider GENERAL: The patient is somewhat drowsy. Oriented to name only. VITAL SIGNS: Temperature 36.8, pulse 99, respiratory rate 25, blood pressure 134/82, oxygen 93% on room air. HEENT: Pupils equal, round and reactive to light. Oral mucosa moist. NECK: No JVD, no neck masses. CARDIOVASCULAR: S1 and S2 heard. Regular rate and rhythm. No murmur, no gallop. RESPIRATORY SYSTEM: Normal AP diameter. No accessory muscle use. No wheezing, no crackles. ABDOMEN: Soft, bowel sounds present, nontender, no distention. CENTRAL NERVOUS SYSTEM: Alert and awake, oriented to name only. Speech is sometimes garbled, does not make sense. Obeys simple commands. Moves extremities. EXTREMITIES: No edema, no erythema. Principal Diagnosis Dementia Discharge Exam GENERAL: Alert, oriented x2 [not to place]. NAD, on RA. HEENT: No pallor, no icterus. Pupils equal, round and reactive to light. Oral mucosa moist. NECK: No JVD, no neck masses. HEART: S1 and S2 heard. Regular rate and rhythm. No murmur, no gallop. RESPIRATORY SYSTEM: Normal AP diameter. No accessory muscle use. No wheezing, no crackles. ABDOMEN: Soft, bowel sounds present, nontender, no distention. CENTRAL NERVOUS SYSTEM: No facial droop. Speech is clear. Obeys simple commands. Moves extremities. EXTREMITIES: trace edema, no erythema seen. Left foot swelling has improved. Discharge Data Allergies Allergy/AdvReac Type Severity Reaction Status Date / Time No Known Allergies Allergy Unverified 12/08/20 18:19 Consultations 12/08/20 21:13 ED Decision to Admit Stat 12/09/20 08:00 Consult Neurology Routine 12/12/20 09:07 Consult Infectious Diseases Routine 12/15/20 15:57 Consult Psychiatry Routine Procedures Performed Operation Date: 12/11/20 10:00 <No data on this case meets the specified criteria> Ordered Studies 12/08/20 17:35 CT abd pelvis IV con only Stat CT head/brain wo con Stat 12/09/20 02:31 MR brain wo/w con Urgent 12/11/20 10:00 FL lumbar puncture diagnostic Routine 12/12/20 09:09 CT abd pelvis oral and IV con Routine Hospital Course (1) AMS (altered mental status): (2) Fever: (3) Ambulatory dysfunction: 75-year-old male with PMH of hypothyroidism, impaired fasting glucose, sleep apnea, emphysema, HTN, venous insufficiency, adenomatous polyp of colon was brought in 12/08 to our ED by his umwusy-lq-uag Susie because of concern of confusion and fall. Patient lives alone and his ambulatory status is not that great but does not use any walker or cane per his MICHELLE. 2 days TA, MICHELLE noticed confusion and found him fall in the driveway. She also noted temperature of 102 degrees on the same day. Because he did not improve, he was brought to the ED. Per his MICHELLE, he is able to carry on meaningful conversation at baseline. #. Dementia #. AMS #. Fever of unknown origin #. 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 Temperature of 38.5C on 12/09. 12/08 pro-Chris negative. TSH WNL 12/09 MRI brain: No acute changes 12/09 EEG: Normal EEG without evidence of focal or generalized encephalopathy, without evidence of potentially epileptogenic activity. 12/10 echo: LV ejection fraction 55 to 60%, mild concentric LVH, grade 1 diastolic dysfunction. No evidence of atrial septal defect. 12/11: Lumbar puncture, follow-up with CSF studies ~CSF analysis: Clear, lactate slightly elevated [nonspecific], protein elevated at 67.5 --> likely no infection. ~CSF West Nile IgM antibody pending ~CSF herpes simplex virus DNA PCR pending ~Cryptococcal antigen test: Negative ~Gram stain negative for organisms, culture negative ~Fungal culture and AFB culture pending, AFB smear negative. 12/12 CT abdomen pelvis: No acute infectious or inflammatory findings, no bowel obstruction. 12/13 T. 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 No source of infection identified so far for fever. 12/08 blood cultureno growth. WBC, pro-Chris and LA are normal. UA and CXR are unremarkable. No signs/symptoms of meningitis. Zosyn 12/09 changed to Rocephin 12/11 --> stopped 12/12 per ID recommendation. ID on board DC Rocephin, check serology for syphilis and West Nile virus, check PCR for Babesia and Anaplasma. Patient in and out of altered mentation. Neurology on board: Follow-up with neurology in 4 to 6 weeks for possible neuropsychological evaluation. Patient received Solu-Medrol 12/14 and 12/15 per neurology recommendation, 12/15 advised to DC Solu-Medrol as neurology thinks it is most likely dementia worsening. Psychiatry consulted for possible recommendation, touched base with psychiatry liaison Shahrzad Romo over the [place] text and states that there is no recommendation from psychiatry. Continue supportive care. Neurochecks. Left foot swelling has improved. Await further results, patient most likely need placement. But upon family's insistence to get him home, patient is being discharged to home with family supervision 11/10. #. Electrolytes abnormality Monitor as needed #. Anemia Hemoglobin low but stable Iron profile suggestive of iron deficiency anemia, normal ferritin storage Vitamin B12 and folate WNL. FOBT negative. Hemoglobin has stayed stable while inpatient. #. Ambulatory dysfunction Recent fall 2 days COMMUNITY [employer] Did not use any assistive device to walk around PT/OT on board: Continue PT/OT while inpatient, PT recommends SNF. Patient going to home with family's 11/10 supervision upon their insistence. #. Hypertension Stable, continue current medication. #. Hypothyroidism Continue home medication #. Impaired glucose tolerance test A1c 5.8% Fairly controlled while inpatient. #. Emphysema No shortness of breath, stable Do not take any medications #. DVT prophylaxis: On Lovenox, held for LP on 12/11 for 1 day. Resume 12/12 Full code Patient hsrmdv-ww-nsf Susie was updated 12/10 about status of the patient and plan of care. She voiced understanding and was agreeable to the plan of care. Disposition: PT recommending SNF, CM to assist with DC planning. CM updated me that family wanted to take him home 12/16 and SNF might not take him as he was ambulating 125 feet x 2; because of family's insistence and their readiness to provide him 24/7 supervision and take him to PCP/emergency if and when required immediately, patient is being discharged to home with family supervision, also Susie states that patient sounds like his baseline since last 2 days per CM's note. Following instruction communicated at the time discharge: Follow-up with your primary care physician within a week time. A lot of serological labs on the patient is pending, please contact primary care physician for further/final results on them. Follow-up with neurology In 4 to 6 weeks time for possible outpatient neuropsychological testing. Take medications as prescribed. Patient will need 24/7 supervision, being discharged to home with family assist. Total Time Total Time Spent Total Time Spent (In Minutes): 45 Discharge Plan Discharge Items Patient Disposition: Home - Self-Care Reason For Visit: FALL, CONFUSION Discharge Diagnosis: Dementia Activity: Per Instructions section Activity Comment: Patient is 24/7 supervision, driving contraindicated. Non-emergency contact: Primary Care Provider Call non-emergency contact if: you have any medication questions and your symptoms worsen Follow-up/Referrals: Shari Rosenbaum MD [Primary Care Provider] - Diet: Heart Healthy Addtl Attending Provider Instructions: Follow-up with your primary care physician within a week time. A lot of serological labs on the patient is pending, please contact primary care physician for further/final results on them. Follow-up with neurology In 4 to 6 weeks time for possible outpatient neuropsychological testing. Take medications as prescribed. Patient will need 24/7 supervision, being discharged to home with family assist. Pending Studies at Discharge: Yes (Serological studies) Stand-Alone Forms: [place], Smoking Cessation Medications and DC Order Prescriptions: Continued furosemide 40 mg tablet 40 mg PO BID RF: 0 atorvastatin 20 mg tablet 20 mg PO QPM RF: 0 potassium chloride 20 mEq tablet,ER particles/crystals 20 meq PO QAM RF: 0 levothyroxine 125 mcg tablet 125 mcg PO QAM RF: 0 losartan 25 mg tablet 25 mg PO QPM RF: 0 triamterene-hydrochlorothiazid 75-50 mg tablet 0.5 tab PO QAM RF: 0 fluticasone propionate 50 mcg/actuation spray,suspension 2 spray INTRANASAL DAILY RF: 0 ibuprofen 200 mg Tablet 200 mg PO AMPM RF: 0 One-A-Day Men's 50 Plus 400-20-370 mcg Tablet 1 tab PO QAM RF: 0 Discharge Orders: Discharge Order (Routine); Ordered 12/16/20 Ordered By: Mehran Archer Admission Data Admit Date/Time: 12/08/20 23:47 Attending Provider: Mehran Archer Admit Provider: Mike Bianchi Primary Care Provider: Shari Rosenbaum Other Providers: Mike Bianchi ; Elle Mesa ; Warren,Care ; Juancarlos Pereira ; Maru Dennis ; Gigi Snow I. ; Will García II ; Bertha Taylor ; Octavio Oleary ; Toya Bee ; Alyce Magaña ; Francisca Camacho ; Félix Paulson
[2020-12-17 16:26] LABS: Babesia microti DNA Not Detected (Not Detected); West Nile Virus PCR Not Detected (Not Detected)
== END 2020-12-16 16:34 | disposition home or self-care (01) | DRG 884 ==
LOC: ED 14:24 → 2W 23:47 → SUATTDRO 23:47 → 2W 12-09 01:25

== ENCOUNTER 2021-06-10 05:19 | Inpatient (IN) ==
[2021-06-10] MEDS ORDERED: ALBUT/IPRATROP 3MG/0.5MG NEB 3 ML VIAL NEB STA ×2 (05:26→06:44)
[2021-06-10] MEDS ORDERED: methylPREDNISolone 125 MG/2 ML VIAL IV STA (05:26)
--- NOTE | 2021-06-10 05:27 | Emergency Department Note ---
Impression & Plan Hypoxia ADMIT ED Provider Note HPI: The patient is a 75-year-old gentleman with history of hypertension, mild dementia, emphysema, presents the emergency department with a chief complaint of shortness of breath from his nursing facility. EMS report, they were contacted and on their arrival the patient had oxygen saturations at 85%. Patient was placed on a nonrebreather, on arrival here to the ED the patient states he feels "much better". He is noted to have oxygen saturations at 94% on room air. He is alert and conversational although he does exhibit moderate inspiratory and expiratory wheezing with mild increased work of breathing. He denies any chest pain. ROS: -Pulmonary: Wheezing, shortness of breath *10 point review systems was conducted and is otherwise negative unless stated above *Outpatient medications and allergy history reviewed PE: General: Alert HEENT: Normocephalic, atraumatic Eyes: Extraocular eye movement is intact, no scleral erythema Pulmonary: Coarse bilateral breath sounds with moderate inspiratory and expiratory wheezing Cardio: Regular rate and rhythm GI: Abdomen is soft, nontender : No suprapubic tenderness MSK: No evidence of trauma or malformation of the extremities, no edema Skin: No evidence of rash Neuro: Alert, no focal deficits 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 He does not wear baseline nasal cannula oxygen at his nursing facility. On arrival here to the ED the patient does appear improved, he was saturating at 94% on room air with mild increased work of breathing however he did have some desaturations to 88% when off oxygen and therefore was placed back on nasal cannula oxygen. Shortly after arrival IV was established, lab work obtained, lab work does not show any evidence of leukocytosis, hemoglobin is stable, there are no critical electrolyte abnormalities noted, troponin is negative x1, EKG does not show any ischemic changes. Chest x-ray does not show any evidence of pneumonia. Patient was given IV Solu- Medrol as well as 2 DuoNeb breathing treatments for his wheezing, his wheezing was improved however the patient remained with supplemental oxygen requirement following these interventions. Patient's brother later arrived at the bedside to serve further history as the patient does have some underlying dementia, states the patient has had some increasing shortness of breath over the past several days at his nursing facility which was concerning to staff. I do suspect this is secondary to COPD/emphysema. COVID-19 testing and influenza testing are negative. [facility] patient was admitted in stable condition for further care. * CRITICAL CARE TIME: (35) minutes -Stabilization of hypoxia with oxygen saturation less than 90% on room air, requiring nasal cannula oxygen to maintain oxygen saturations greater than 90%, time spent at the bedside, discussion with other healthcare providers, arrangement of admission. Diagnosis: 1. Hypoxia, acute 2. Wheezing/dyspnea 3. COPD exacerbation, moderate Disposition: ADMIT Octavio Trent, Emergency Medicine Past Med/Surg History Social History Smoking Status: Unknown if ever smoked Preferred Language: Syriac Communication Ability: Impaired Psychiatrist Required: No marital status: / Current Living Situation: Alone How many Children do You have: 0 Feels Safe at Home: Yes Assistive Devices: Walker Allergies Allergies Allergy/AdvReac Type Severity Reaction Status Date / Time No Known Allergies Allergy Unverified 06/10/21 07:11 Home Meds Home Medications Medication Instructions Recorded Confirmed atorvastatin 20 mg tablet 20 mg PO QPM 12/08/20 06/10/21 fluticasone propionate 50 2 spray INTRANASAL DAILY 12/08/20 06/10/21 mcg/actuation nasal spray,suspension ibuprofen 200 mg tablet 200 mg PO AMPM 12/08/20 06/10/21 levothyroxine 125 mcg tablet 125 mcg PO QAM 12/08/20 06/10/21 [id number] acid-vit 1 tab PO QAM 12/08/20 06/10/21 K-lycop 400 mcg-20 mcg-370 mcg tablet (One-A-Day Men's 50 Plus) potassium chloride 20 mEq 20 meq PO QAM 12/08/20 06/10/21 tablet,extended release(part/cryst) acetaminophen 650 mg 650 mg PO Q8H PRN MDD 3g 06/10/21 06/10/21 tablet,extended release (Arthritis Pain Reliever) albuterol sulfate 90 mcg/actuation 2 inh INHALATION Q4 PRN 06/10/21 06/10/21 breath activated powder inhaler (ProAir RespiClick) albuterol sulfate 90 mcg/actuation See Rx Instructions .ROUTE .COMPLEX 06/10/21 06/10/21 breath activated powder inhaler (ProAir RespiClick) dextromethorphan-guaifenesin 30 1 tab PO Q12H PRN 06/10/21 06/10/21 mg-600 mg tablet extended [id number] hr (Mucinex DM) donepezil 10 mg tablet 10 mg PO HS 06/10/21 06/10/21 furosemide 20 mg tablet 20 mg PO .DAILY AT 3PM 06/10/21 06/10/21 furosemide 40 mg tablet 40 mg PO .DAILY AT 830AM 06/10/21 06/10/21 loratadine 10 mg tablet 10 mg PO DAILY 06/10/21 06/10/21 sodium chloride 0.65 % nasal spray 2 spray INTRANASAL BID PRN 06/10/21 06/10/21 aerosol (Saline Mist) tiotropium bromide 2.5 2 puff INHALATION DAILY 06/10/21 06/10/21 mcg/actuation mist for inhalation (Spiriva Respimat) Results & Data (ED) Vital Signs Vital Signs - 24 hr 06/10/21 05:24 06/10/21 05:37 06/10/21 06:37 Temperature 37.0 C Temperature Source Oral Pulse Rate 100 H Pulse Rate [Apical] 95 H Respiratory Rate 18 18 Blood Pressure 155/97 H Blood Pressure [Right Arm] 128/76 Blood Pressure Mean 116 Blood Pressure Mean [Right Arm] 93 Pulse Oximetry 91 90 94 Oxygen Delivery Method Room Air Room Air Nasal Cannula Oxygen Flow Rate 3 Sepsis Recent Fever Within 48 Hours No Sepsis New/Unexplained Change in Mental Status No Sepsis Action Taken by Nursing No Action Required 06/10/21 07:22 Temperature Temperature Source Pulse Rate Pulse Rate [Apical] 102 H Respiratory Rate 22 Blood Pressure Blood Pressure [Right Arm] 160/94 H Blood Pressure Mean Blood Pressure Mean [Right Arm] 116 Pulse Oximetry 88 L Oxygen Delivery Method Room Air Oxygen Flow Rate Sepsis Recent Fever Within 48 Hours Sepsis New/Unexplained Change in Mental Status Sepsis Action Taken by Nursing Laboratory Data Result diagrams: 06/10/21 05:30 06/10/21 05:30 Lab Results 06/10/21 06/10/21 06/10/21 Range/Units 05:30 05:30 05:30 WBC 7.51 (4.8-10.8) K/uL RBC 5.02 (4.7-6.1) M/uL Hgb 16.0 (14.0-18.0) g/dL Hct 48.1 (42-52) % MCV 95.8 (80-100) fL MCH 31.9 (25-34) pg MCHC 33.3 (32-36) g/dL RDW Std Deviation 52.3 H (36.4-46.3) fL RDW Coeff of [place] 14.9 H (11.5-14.5) % Plt Count 218 (130-400) K/uL MPV 9.9 (7.4-10.4) fL Immature Gran % (Auto) 0.1 % Neut % (Auto) 68.2 % Lymph % (Auto) 11.3 % [place] % (Auto) 8.3 % Eos % (Auto) 11.6 % Baso % (Auto) 0.5 % Neut # (Auto) 5.12 (1.4-6.5) K/uL Lymph # (Auto) 0.85 L (1.2-3.4) K/uL [place] # (Auto) 0.62 H (0.11-0.59) K/uL Eos # (Auto) 0.87 H (0-0.5) K/uL Baso # (Auto) 0.04 (0-0.2) K/uL Immature Gran # (Auto) 0.01 (0.00-0.02) K/uL PT 10.8 (9.0-12.0) Seconds INR 1.0 (0.9-1.1) APTT 29.2 (21.0-31.0) Seconds PTT Ratio 1.1 VBG pH (7.36-7.41) VBG pCO2 (38-50) mmHg VBG pO2 mmHg VBG HCO3 mmol/L VBG O2 Saturation % VBG Base Excess mEq/L Barometric Pressure mm/Hg Sodium 137 (136-145) mmol/L Potassium 3.8 (3.5-5.1) mmol/L Chloride 98 (98-107) mmol/L Carbon Dioxide 32 (21-32) mmol/L Anion Gap 7 (3-11) BUN 14 (6-23) mg/dl Creatinine 0.97 (0.6-1.4) mg/dl Est Cr Clr Drug Dosing 81.4 ml/min Est GFR ( Amer) 89.4 ml/min Est GFR (Non-Af Amer) 77.1 ml/min BUN/Creatinine Ratio 14.4 (10-20) Glucose 103 H (70-99(Fasting)) mg/dl Calcium 9.2 (8.5-10.1) mg/dl Total Bilirubin 0.6 (0.2-1.0) mg/dl AST 17 (13-39) U/L ALT 13 (7-52) U/L Alkaline Phosphatase 86 (34-104) U/L Troponin I < 0.03 (0-0.04) ng/ml Total Protein 7.4 (6.0-8.3) gm/dl Albumin 4.3 (3.4-5.0) gm/dl Globulin 3.1 (2.5-4.0) gm/dl Albumin/Globulin Ratio 1.4 (0.9-2) Urine Color Urine Appearance (Clear) Urine pH (4.5-7.5) Ur Specific [place] (1.000-1.030) Urine Protein (Negative) Urine Glucose (UA) (Negative) Urine Ketones (Negative) Urine Blood (Negative) Urine Nitrite (Negative) Urine Bilirubin (Negative) Urine Urobilinogen (Negative) Ur Leukocyte Esterase (Negative) SARS-CoV-2 (PCR) (Negative) Influenza Type A (PCR) (Neg) Influenza Type B (PCR) (Neg) RSV (RT-PCR) (Neg) 06/10/21 06/10/21 06/10/21 Range/Units 05:43 06:27 06:50 WBC (4.8-10.8) K/uL RBC (4.7-6.1) M/uL Hgb (14.0-18.0) g/dL Hct (42-52) % MCV (80-100) fL MCH (25-34) pg MCHC (32-36) g/dL RDW Std Deviation (36.4-46.3) fL RDW Coeff of [place] (11.5-14.5) % Plt Count (130-400) K/uL MPV (7.4-10.4) fL Immature Gran % (Auto) % Neut % (Auto) % Lymph % (Auto) % [place] % (Auto) % Eos % (Auto) % Baso % (Auto) % Neut # (Auto) (1.4-6.5) K/uL Lymph # (Auto) (1.2-3.4) K/uL [place] # (Auto) (0.11-0.59) K/uL Eos # (Auto) (0-0.5) K/uL Baso # (Auto) (0-0.2) K/uL Immature Gran # (Auto) (0.00-0.02) K/uL PT (9.0-12.0) Seconds INR (0.9-1.1) APTT (21.0-31.0) Seconds PTT Ratio VBG pH 7.36 (7.36-7.41) VBG pCO2 61 H (38-50) mmHg VBG pO2 34 mmHg VBG HCO3 34 mmol/L VBG O2 Saturation < 60.0 % VBG Base Excess 6.1 mEq/L Barometric Pressure 734.3 mm/Hg Sodium (136-145) mmol/L Potassium (3.5-5.1) mmol/L Chloride (98-107) mmol/L Carbon Dioxide (21-32) mmol/L Anion Gap (3-11) BUN (6-23) mg/dl Creatinine (0.6-1.4) mg/dl Est Cr Clr Drug Dosing ml/min Est GFR ( Amer) ml/min Est GFR (Non-Af Amer) ml/min BUN/Creatinine Ratio (10-20) Glucose (70-99(Fasting)) mg/dl Calcium (8.5-10.1) mg/dl Total Bilirubin (0.2-1.0) mg/dl AST (13-39) U/L ALT (7-52) U/L Alkaline Phosphatase (34-104) U/L Troponin I (0-0.04) ng/ml Total Protein (6.0-8.3) gm/dl Albumin (3.4-5.0) gm/dl Globulin (2.5-4.0) gm/dl Albumin/Globulin Ratio (0.9-2) Urine Color Yellow Urine Appearance Clear (Clear) Urine pH 5.5 (4.5-7.5) Ur Specific [place] 1.011 (1.000-1.030) Urine Protein Negative (Negative) Urine Glucose (UA) Negative (Negative) Urine Ketones Negative (Negative) Urine Blood Negative (Negative) Urine Nitrite Negative (Negative) Urine Bilirubin Negative (Negative) Urine Urobilinogen Negative (Negative) Ur Leukocyte Esterase Negative (Negative) SARS-CoV-2 (PCR) NEGATIVE (Negative) Influenza Type A (PCR) Negative (Neg) Influenza Type B (PCR) Negative (Neg) RSV (RT-PCR) Negative (Neg) Administered Medications Discontinued Medications Albuterol (Albut/Ipratrop 3mg/0.5mg Neb 3 Ml Vial) 3 ml NEB NOW STA; Protocol Stop: 06/10/21 05:27 Last Admin: 06/10/21 05:30 Dose: 3 ml Documented by: [id number] Albuterol (Albut/Ipratrop 3mg/0.5mg Neb 3 Ml Vial) 3 ml NEB NOW STA; Protocol Stop: 06/10/21 06:45 Last Admin: 06/10/21 06:52 Dose: 3 ml Documented by: [id number] Methylprednisolone (Methylprednisolone 125 Mg/2 Ml Vial) 125 mg IV NOW STA Stop: 06/10/21 05:27 Last Admin: 06/10/21 05:30 Dose: 125 mg Documented by: [id number] Imaging Data Radiologist's Impression: Chest X-Ray 06/10/21 05:21 XR chest 1V portable CLINICAL HISTORY: Dyspnea TECHNIQUE: Single frontal radiograph of the chest was obtained. Comparison: Comparison is made to chest one view 12/08/2020 FINDINGS: No lines and tubes are seen. The cardiomediastinal silhouette is normal. The lungs are clear. No evidence of pleural effusion or pneumothorax. IMPRESSION: No acute chest disease. ACT 112: Negative or not required by law. Electronically signed by: Macho Mir M.D. 06/10/2021 7:14 AM Discharge Plan Visit Data Chief Complaint: Shortness of Breath/Dyspnea Stated Complaint: SOB ED Provider: Octavio Trent Discharge Problem: Hypoxia Forms Stand Alone Forms: My [facility] Prescriptions Prescriptions: No Action atorvastatin 20 mg tablet 20 mg PO QPM RF: 0 potassium chloride 20 mEq tablet,ER particles/crystals 20 meq PO QAM RF: 0 levothyroxine 125 mcg tablet 125 mcg PO QAM RF: 0 fluticasone propionate 50 mcg/actuation spray,suspension 2 spray INTRANASAL DAILY RF: 0 ibuprofen 200 mg Tablet 200 mg PO AMPM RF: 0 One-A-Day Men's 50 Plus 400-20-370 mcg Tablet 1 tab PO QAM RF: 0 furosemide 40 mg tablet 40 mg PO .DAILY AT 830AM RF: 0 donepezil 10 mg Tablet 10 mg PO HS RF: 0 furosemide 20 mg tablet 20 mg PO .DAILY AT 3PM RF: 0 loratadine 10 mg Tablet 10 mg PO DAILY RF: 0 Spiriva Respimat 2.5 mcg/actuation mist 2 puff INHALATION DAILY RF: 0 ProAir RespiClick 90 mcg/actuation aerosol powdr breath activated See Rx Instructions .ROUTE .COMPLEX RF: 0 acetaminophen [Arthritis Pain Reliever] 650 mg Tablet Extended Release 650 mg PO Q8H MDD 3g PRN (Reason: Fever Or Pain) RF: 0 Mucinex DM 30-600 mg Tablet Extended Release 12 Hr 1 tab PO Q12H PRN (Reason: Congestion) RF: 0 ProAir RespiClick 90 mcg/actuation aerosol powdr breath activated 2 inh INHALATION Q4 PRN (Reason: cough/wheezing) RF: 0 Saline Mist 0.65 % Aerosol,[place] 2 spray INTRANASAL BID PRN (Reason: Congestion) RF: 0 Referrals Referrals: Shari Rosenbaum MD [Primary Care Provider] -
[2021-06-10 05:46] LABS: Basophils # (auto) 0.04 K/uL (0-0.2); Basophils % (auto) 0.5 %; Eosinophils # (auto) 0.87 K/uL (0-0.5); Eosinophils % (auto) 11.6 %; Hematocrit (blood only) 48.1 % (42-52); Immature Granulocytes # (auto) 0.01 K/uL (0.00-0.02); Immature Granulocytes % (auto) 0.1 %; Lymphocytes # (auto) 0.85 K/uL (1.2-3.4); Lymphocytes % (auto) 11.3 %; Mean Corpuscular Hemoglobin 31.9 pg (25-34); Mean Corpuscular Hgb Conc 33.3 g/dL (32-36); Mean Corpuscular Volume 95.8 fL (80-100); Mean Platelet Volume 9.9 fL (7.4-10.4); Monocytes # (auto) 0.62 K/uL (0.11-0.59); Monocytes % (auto) 8.3 %; Neutrophils # (auto) 5.12 K/uL (1.4-6.5); Neutrophils % (auto) 68.2 %; Platelet Count 218 K/uL (130-400); RDW Coefficient of Variation 14.9 % (11.5-14.5); RDW Standard Deviation 52.3 fL (36.4-46.3); Red Blood Count 5.02 M/uL (4.7-6.1); White Blood Count 7.51 K/uL (4.8-10.8)
[2021-06-10 06:02] LABS: Partial Thromboplastin Ratio 1.1; Partial Thromboplastin Time 29.2 Seconds (21.0-31.0); Prothrombin Time 10.8 Seconds (9.0-12.0)
[2021-06-10 06:10] LABS: Base Excess VBG 6.1 mEq/L; HCO3 VBG 34 mmol/L; PCO2 VBG 61 mmHg (38-50); PO2 VBG 34 mmHg; pH VBG 7.36 (7.36-7.41)
[2021-06-10 06:13] LABS: Troponin I < 0.03 ng/ml (0-0.04)
[2021-06-10 06:14] LABS: Oxygen Saturation VBG < 60.0 %
[2021-06-10 06:29] LABS: Alanine Aminotransferase 13 U/L (7-52); Albumin Globulin Ratio 1.4 (0.9-2); Albumin Level 4.3 gm/dl (3.4-5.0); Alkaline Phosphatase 86 U/L (34-104); Anion Gap 7 (3-11); Aspartate Aminotransferase 17 U/L (13-39); BUN Creatinine Ratio 14.4 (10-20); Bilirubin,Total 0.6 mg/dl (0.2-1.0); Blood Urea Nitrogen 14 mg/dl (6-23); Calcium 9.2 mg/dl (8.5-10.1); Carbon Dioxide 32 mmol/L (21-32); Chloride 98 mmol/L (98-107); Creatinine Clr Calc Pharmacy 81.4 ml/min; Est GFR (African American) 89.4 ml/min; Est GFR (Non-African American) 77.1 ml/min; Globulin 3.1 gm/dl (2.5-4.0); Glucose 103 mg/dl (70-99(Fasting)); Potassium 3.8 mmol/L (3.5-5.1); Sodium 137 mmol/L (136-145); Total Protein 7.4 gm/dl (6.0-8.3)
[2021-06-10 06:44] LABS: Appearance Urine Clear (Clear); Bilirubin Urine Negative (Negative); Blood Urine Negative (Negative); Color Urine Yellow; Glucose Urine UA Negative (Negative); Ketones Urine Negative (Negative); Leukocyte Esterase Urine Negative (Negative); Nitrite Urine Negative (Negative); Protein Urine Negative (Negative); Specific Gravity Urine 1.011 (1.000-1.030); Urobilinogen Urine Negative (Negative); pH Urine 5.5 (4.5-7.5)
--- NOTE | 2021-06-10 07:15 | XRay Report ---
XR chest 1V portable CLINICAL HISTORY: Dyspnea TECHNIQUE: Single frontal radiograph of the chest was obtained. Comparison: Comparison is made to chest one view 12/08/2020 FINDINGS: No lines and tubes are seen. The cardiomediastinal silhouette is normal. The lungs are clear. No evid ence of pleural effusion or pneumothorax. IMPRESSION: No acute chest disease. ACT 112: Negative or not required by law. Electronically signed by: Macho Mir M.D. 06/10/2021 7:14 AM
[2021-06-10 07:37] LABS: Influenza A virus by PCR Negative (Neg); Influenza B virus by PCR Negative (Neg); RSV by PCR Negative (Neg); SARS CoV2 RNA(COVID-19) InHosp NEGATIVE (Negative)
--- NOTE | 2021-06-10 09:22 | History & Physical Report ---
Date of Service June 10, 2021 Assessment & Plan (1) COPD exacerbation: (2) Hypoxia: (3) Chronic heart failure with preserved ejection fraction (HFpEF): (4) Hypertension: (5) Dementia: Plan: This is a 75-year-old male who has significant past medical history of HTN, HLD, chronic HFpEF, hypothyroidism, COPD, dementia, NAM noncompliant with CPAP who presents from assisted living facility secondary to shortness of breath and cough x3 weeks. COPD EXACERBATION HYPOXIA admit to med tele continue supplemental oxygen IV solumedrol 40mg qid routine nebs - duoneb, budesonide and formoterol tessalon perles, muccinex encourage incentive spirometry Chronic HFpEF HTN HLD continue statin, lasix, kcl Hypothyroidism continue levothyroxine NAM does not use CPAP Dementia mood stable, continue monitor for delirium DVT ppx: SQ Lovenox Dispo: med tele, will need PT/OT and likely to return to [facility] FULL CODE PCP: Dr. Shari Rosenbaum Pt was seen and examined in collaboration with Dr. Brown, please see addendum History of Present Illness Chief Complaint: Cough and shortness of breath x3 weeks. Primary Care Provider: Shari Rosenbaum MD This is a 75-year-old male who has significant past medical history of HTN, HLD, chronic HFpEF, hypothyroidism, COPD, dementia, NAM noncompliant with CPAP who presents from assisted living facility secondary to shortness of breath and cough x3 weeks. Patient complains of an increased productive cough with clear sputum x3 weeks. He also complains of increasing shortness of breath. He states he wakes up every morning at approximately 3 AM, "gasping for air." He denies any sick contacts. He does complain of increased wheezing. Patient's brother is at bedside. Patient history slightly unreliable secondary to underlying dementia, but brother able to provide accurate history. He denies any fever, chills, sweats, lightheadedness, dizziness, syncope, falls, chest pain, hemoptysis, nausea, vomiting, abdominal pain, changes bowel or urinary habits. He does have mild lower extremity swelling. At baseline he ambulates with a walker and is active at assisted living facility. He is vaccinated for COVID-19 and boosted. In route patient was found to be hypoxic at 85%. He received 2 albuterol nebulizer treatments and placed on nonrebreather at 3 L and is currently saturating at 96%. Chest x-ray was negative for acute abnormality. CBC and CMP were generally unremarkable. He did have elevation of CO2 on VBG but normal pH. His urinalysis was negative. He tested negative for SARS-CoV-2, influenza and RSV. It is likely patient is suffering from acute COPD exacerbation and he received IV steroids in ED. Allergies Allergy/AdvReac Type Severity Reaction Status Date / Time No Known Allergies Allergy Unverified 06/10/21 07:11 Home Medications Medication Instructions Recorded Confirmed Type atorvastatin 20 mg tablet 20 mg PO QPM 12/08/20 06/10/21 History fluticasone propionate 50 2 spray INTRANASAL DAILY 12/08/20 06/10/21 History mcg/actuation nasal spray,suspension ibuprofen 200 mg tablet 200 mg PO AMPM 12/08/20 06/10/21 History levothyroxine 125 mcg tablet 125 mcg PO QAM 12/08/20 06/10/21 History whvkmwhqshet-ubw-brkqw acid-vit 1 tab PO QAM 12/08/20 06/10/21 History K-lycop 400 mcg-20 mcg-370 mcg tablet (One-A-Day Men's 50 Plus) potassium chloride 20 mEq 20 meq PO QAM 12/08/20 06/10/21 History tablet,extended release(part/cryst) acetaminophen 650 mg 650 mg PO Q8H PRN MDD 3g 06/10/21 06/10/21 History tablet,extended release (Arthritis Pain Reliever) albuterol sulfate 90 mcg/actuation 2 inh INHALATION Q4 PRN 06/10/21 06/10/21 History breath activated powder inhaler (ProAir RespiClick) albuterol sulfate 90 mcg/actuation See Rx Instructions .ROUTE .COMPLEX 06/10/21 06/10/21 History breath activated powder inhaler (ProAir RespiClick) dextromethorphan-guaifenesin 30 1 tab PO Q12H PRN 06/10/21 06/10/21 History mg-600 mg tablet extended ehnvsru04 hr (Mucinex DM) donepezil 10 mg tablet 10 mg PO HS 06/10/21 06/10/21 History furosemide 20 mg tablet 20 mg PO .DAILY AT 3PM 06/10/21 06/10/21 History furosemide 40 mg tablet 40 mg PO .DAILY AT 830AM 06/10/21 06/10/21 History loratadine 10 mg tablet 10 mg PO DAILY 06/10/21 06/10/21 History sodium chloride 0.65 % nasal spray 2 spray INTRANASAL BID PRN 06/10/21 06/10/21 History aerosol (Saline Mist) tiotropium bromide 2.5 2 puff INHALATION DAILY 06/10/21 06/10/21 History mcg/actuation mist for inhalation (Spiriva Respimat) Past Med/Surg History Medical History (Updated 06/10/21 @ 09:14 by Urmila Johnson PA-C) Chronic heart failure with preserved ejection fraction (HFpEF) Dementia History of emphysema Hypertension Hypothyroidism Impaired glucose tolerance test NAM and COPD overlap syndrome Venous insufficiency Surgical History (Updated 06/10/21 @ 09:11 by Urmila Johnson PA-C) History of colonoscopy History of tonsillectomy and adenoidectomy Family History Other Family history non-contributory Social History (Updated 06/10/21 @ 09:12 by Urmila Johnson PA-C) Smoking Status: Unknown if ever smoked Tobacco Type: Cigarettes packs per day: 1; Years Smoked: 30; Smoking End Date: 1997; Do You Dip or Chew Tobacco: No; Hx Alcohol Use: No Hx Substance Use: No Preferred Language: Divehi Communication Ability: Effective Tablet Tester Required: Yes Beliefs That Will Affect Care: None marital status: / Current Living Situation: Personal Care Facility How many Children do You have: 0 Feels Safe at Home: Yes Safety Concerns: Feels Safe At This Time Assistive Devices: Glasses and Walker Review of Systems Review of Systems: All systems reviewed & are unremarkable except as noted in HPI & below Physical Exam Physical Exam: Constitutional: WD/WN, vitals as above, NAD, sitting up in bed, pleasant, conversing easily Head: Normocephalic, Atraumatic Eyes: PERRL, conjunctivae normal, anicteric sclerae ENMT: external ear and nose normal, oropharynx normal Neck: trachea midline, no thyromegaly normal visual inspection Respiratory: normal respiratory effort, lungs clear to auscultation with decreased breath sounds at bases, mild expiratory wheezing, no rales, rhonchi. Normal insp/exp effort, no accessory muscle use, on 3 L nonrebreather Cardiovascular: RRR, no murmur, lower extremity edema Vessels: no JVD or carotid bruit Chest: normal inspection of chest Abdomen: normal bowel sounds, soft, nontender, no hepatosplenomegaly Musculoskeletal: no cyanosis or clubbing, extremities motor strength 5/5 Skin: no rashes, warm and dry normal turgor Neurologic: PERRL, EOMI, accommodation nl, no face palsy, no dysarthria CN's II-XI intact bilaterally and moves all extremities Psychiatric: A+Ox3 basics only euthymic affect Lymphatic: no cervical or axillary lymphadenopathy : deferred Results & Data Results & Data ([facility]) Vital Signs (Past 12 Hours) Vital Signs Temp Pulse Pulse Resp BP BP Pulse Ox 06/10/21 07:22 102 H 22 160/94 H 88 L 06/10/21 06:37 95 H 18 128/76 94 06/10/21 05:37 90 06/10/21 05:24 37.0 C 100 H 18 155/97 H 91 Diagnostic Findings Chest X-Ray 06/10/21 05:21 XR chest 1V portable CLINICAL HISTORY: Dyspnea TECHNIQUE: Single frontal radiograph of the chest was obtained. Comparison: Comparison is made to chest one view 12/08/2020 FINDINGS: No lines and tubes are seen. The cardiomediastinal silhouette is normal. The lungs are clear. No evidence of pleural effusion or pneumothorax. IMPRESSION: No acute chest disease. ACT 112: Negative or not required by law. Electronically signed by: Macho Mir M.D. 06/10/2021 7:14 AM Medications Administered Medication List Discontinued Medications Albuterol (Albut/Ipratrop 3mg/0.5mg Neb 3 Ml Vial) 3 ml NEB NOW STA; Protocol Stop: 06/10/21 05:27 Last Admin: 06/10/21 05:30 Dose: 3 ml Documented by: [id number] Albuterol (Albut/Ipratrop 3mg/0.5mg Neb 3 Ml Vial) 3 ml NEB NOW STA; Protocol Stop: 06/10/21 06:45 Last Admin: 06/10/21 06:52 Dose: 3 ml Documented by: [id number] Methylprednisolone (Methylprednisolone 125 Mg/2 Ml Vial) 125 mg IV NOW STA Stop: 06/10/21 05:27 Last Admin: 06/10/21 05:30 Dose: 125 mg Documented by: [id number] ECG Rate (beats per minute): 105 Rhythm: sinus tachycardia Additional Comments: poor quality tracing COVID-19 Results Results COVID-19 Adm Lab Results: RBC 5.02 M/uL (4.7-6.1) 06/10/21 WBC 7.51 K/uL (4.8-10.8) 06/10/21 Hgb 16.0 g/dL (14.0-18.0) 06/10/21 Hct 48.1 % (42-52) 06/10/21 Plt Count 218 K/uL (130-400) 06/10/21 Neutrophils (%) (Auto) 68.2 % 06/10/21 Lymphocytes (%) (Auto) 11.3 % 06/10/21 Monocytes # (Auto) 0.62 K/uL (0.11-0.59) H 06/10/21 Eosinophils # (Auto) 0.87 K/uL (0-0.5) H 06/10/21 Immature Granulocyte % (Auto) 0.1 % 06/10/21 Neutrophils # (Auto) 5.12 K/uL (1.4-6.5) 06/10/21 Lymphocytes # (Auto) 0.85 K/uL (1.2-3.4) L 06/10/21 Monocytes # (Auto) 0.62 K/uL (0.11-0.59) H 06/10/21 Eosinophils # (Auto) 0.87 K/uL (0-0.5) H 06/10/21 Basophils # (Auto) 0.04 K/uL (0-0.2) 06/10/21 Immature Granulocyte # (Auto) 0.01 K/uL (0.00-0.02) 06/10/21 Na 137 mmol/L (136-145) 06/10/21 K 3.8 mmol/L (3.5-5.1) 06/10/21 Cl 98 mmol/L (98-107) 06/10/21 CO2 32 mmol/L (21-32) 06/10/21 Anion Gap 7 (3-11) 06/10/21 BUN 14 mg/dl (6-23) 06/10/21 Creatinine 0.97 mg/dl (0.6-1.4) 06/10/21 BUN/Creatinine Ratio 14.4 (10-20) 06/10/21 Glucose Level 103 mg/dl (70-99(Fasting)) H 06/10/21 Ca 9.2 mg/dl (8.5-10.1) 06/10/21 Total Bilirubin 0.6 mg/dl (0.2-1.0) 06/10/21 AST/SGOT 17 U/L (13-39) 06/10/21 ALT/SGPT 13 U/L (7-52) 06/10/21 Alkaline Phosphatase 86 U/L (34-104) 06/10/21 Total Protein 7.4 gm/dl (6.0-8.3) 06/10/21 Albumin 4.3 gm/dl (3.4-5.0) 06/10/21 Globulin 3.1 gm/dl (2.5-4.0) 06/10/21 Albumin/Globulin Ratio 1.4 (0.9-2) 06/10/21 Troponin I < 0.03 ng/ml (0-0.04) 06/10/21 Procalcitonin < 0.05 ng/ml (0-0.5) 06/10/21 PTT 29.2 Seconds (21.0-31.0) 06/10/21 INR 1.0 (0.9-1.1) 06/10/21 COVID-19 PCR NEGATIVE (Negative) 06/10/21 Influenza Virus Type A (PCR) Negative (Neg) 06/10/21 Influenza Virus Type B (PCR) Negative (Neg) 06/10/21 Chest X-Ray 06/10/21 Code Status & VTE Plan Code Status FULL CODE VTE Prophylaxis Plan VTE Prophylaxis will be ordered: Yes Supervising Physician Co-Signing Physician Notes Patient was seen and evaluated independently. Chart reviewed. Case discussed with MILAGROS. Patient appears "jittery" while on solumedrol--> no longer wheezing--> will reduce to 20mg IV Q 8 hours, likely switch to prednisone tomorrow At high risk for delirium overnight with his dementia. Will order risperdal PRN for ronight Otherwise Assessment and plan as above
[2021-06-10] MEDS ORDERED: NON-FORMULARY MEDICATION (Dextromethorphan-Guaifenesin [Mucinex Dm] 30-600 mg Tablet Exten PO PRN ×2 (11:40)
[2021-06-10] MEDS ORDERED: ACETAMINOPHEN 650 MG PO PRN (11:40)
[2021-06-10] MEDS ORDERED: FUROSEMIDE 40 MG TAB PO SCH ×2 (11:40)
[2021-06-10] MEDS ORDERED: ALUMINUM/MAGNESIUM SUSP 30 ML UDC PO PRN (11:40)
[2021-06-10] MEDS ORDERED: FUROSEMIDE 20 MG TAB PO SCH ×2 (11:40)
[2021-06-10] MEDS ORDERED: MAGNESIUM HYDROXIDE SUSP 30 ML UDC PO PRN (11:40)
[2021-06-10] MEDS ORDERED: POLYETHYLENE (MIRALAX) 17 GM PACK PO PRN (11:40)
[2021-06-10] MEDS ORDERED: ONDANSETRON INJ 2 MG/ML 2 ML VIAL IV PRN (11:40)
[2021-06-10] MEDS ORDERED: ACETAMINOPHEN 325 MG TAB PO PRN (11:40)
[2021-06-10] MEDS: ALBUT/IPRATROP 3MG/0.5MG NEB 3 ML VIAL INH SCH ×3 (12:58→23:51)
--- NOTE | 2021-06-10 13:34 | Electrocardiogram Report ---
Test Reason : Blood Pressure : / mmHG Vent. Rate : 105 BPM Atrial Rate : 105 BPM P-R Int : 136 ms QRS Dur : 090 ms QT Int : 342 ms P-R-T Axes : -21 108 -04 degrees QTc Int : 452 ms Poor data quality, interpretation may be adversely affected Sinus tachycardia Rightward axis Low voltage QRS Abnormal ECG When compared with ECG of 08-DEC-2020 17:29, QRS axis Shifted right ST no longer depressed in Inferior leads ST now depressed in Lateral leads T wave inversion now evident in Inferior leads Confirmed by Chi Keating ([id number]) on 06/10/2021 1:34:36 PM Referred By: Klarissa Pruitt Confirmed By:Alex Keating
[2021-06-10] MEDS: POTASSIUM CHLORIDE CRTAB 20 MEQ TABCR PO SCH (14:28)
[2021-06-10] MEDS: BENZONATATE 100 MG CAPSULE PO SCH ×2 (14:28→20:31)
[2021-06-10] MEDS: FLUTICASONE PROPIONATE NA SPR 16 GM BTL NAE SCH (14:29)
[2021-06-10] MEDS: LORATADINE 10 MG TAB PO SCH (14:29)
[2021-06-10] MEDS: IBUPROFEN 200 MG TAB PO SCH (16:39)
[2021-06-10] MEDS: FUROSEMIDE 20 MG TAB PO SCH (16:39)
[2021-06-10] MEDS: BUDESONIDE 0.5 MG/2 ML VIAL (PULMICORT) NEB SCH (19:07)
[2021-06-10] MEDS: ATORVASTATIN 20 MG TAB PO SCH (20:31)
[2021-06-10] MEDS: DONEPEZIL HCL 10 MG TAB PO SCH (20:31)
[2021-06-10] MEDS: guaiFENesin 600 MG TABCR PO SCH (20:31)
[2021-06-10] MEDS: risperiDONE 0.5 MG TABLET PO PRN (20:46)
[2021-06-10] MEDS: FORMOTEROL 20 MCG/2 ML VIAL NEB SCH (23:51)
[2021-06-11] MEDS: LEVOTHYROXINE SODIUM 125 MCG TABLET PO SCH (05:54)
[2021-06-11] MEDS: FORMOTEROL 20 MCG/2 ML VIAL NEB SCH ×2 (07:11→19:27)
[2021-06-11] MEDS: ALBUT/IPRATROP 3MG/0.5MG NEB 3 ML VIAL INH SCH (07:11)
[2021-06-11] MEDS: BUDESONIDE 0.5 MG/2 ML VIAL (PULMICORT) NEB SCH ×2 (07:11→19:24)
[2021-06-11 07:37] LABS: BUN Creatinine Ratio 21.4 (10-20); Calcium 9.4 mg/dl (8.5-10.1); Creatinine Clr Calc Pharmacy 92.3 ml/min; Est GFR (African American) 100.7 ml/min; Est GFR (Non-African American) 86.9 ml/min; Potassium 3.7 mmol/L (3.5-5.1)
[2021-06-11] MEDS: BENZONATATE 100 MG CAPSULE PO SCH ×3 (08:52→23:13)
[2021-06-11] MEDS: POTASSIUM CHLORIDE CRTAB 20 MEQ TABCR PO SCH (08:52)
[2021-06-11] MEDS: FUROSEMIDE 40 MG TAB PO SCH (08:53)
[2021-06-11] MEDS: FLUTICASONE PROPIONATE NA SPR 16 GM BTL NAE SCH (08:53)
[2021-06-11] MEDS: guaiFENesin 600 MG TABCR PO SCH ×2 (08:53→20:02)
[2021-06-11] MEDS: ENOXAPARIN INJ 40 MG/0.4 ML SYR SQ SCH (08:53)
[2021-06-11] MEDS: LORATADINE 10 MG TAB PO SCH (08:54)
[2021-06-11] MEDS: IBUPROFEN 200 MG TAB PO SCH (08:55)
[2021-06-11] MEDS ORDERED: methylPREDNISolone 40 MG in SYRINGE 0 ML IV SCH (09:00)
[2021-06-11] MEDS: methylPREDNISolone 20 MG in SYRINGE 0 ML IV SCH ×3 (09:25→23:14)
[2021-06-11] MEDS: ALBUT/IPRATROP 3MG/0.5MG NEB 3 ML VIAL NEB SCH ×2 (13:00→19:24)
--- NOTE | 2021-06-11 13:17 | Hospitalist Progress Note ---
Date of Service June 11, 2021 Assessment & Plan (1) COPD exacerbation: (2) Hypoxia: (3) Chronic heart failure with preserved ejection fraction (HFpEF): (4) Hypertension: (5) Dementia: Plan: This is a 75-year-old male who has significant past medical history of HTN, HLD, chronic HFpEF, hypothyroidism, COPD, dementia, NAM noncompliant with CPAP who presents from assisted living facility secondary to shortness of breath and cough x3 weeks. Acute COPD EXACERBATION Acute hypoxic respiratory failure -now on room air -solumedrol dose decreased to 20mg IV Q 8 hours , can switch to prednisone taper at discharge -Scheduled Duoneb, budesonide and formoterol BID -will also start azithromycin 5 day course for increased cough, CXR negative for pneumonia Chronic HFpEF HTN HLD continue statin, lasix Hypothyroidism continue levothyroxine NAM does not use CPAP Dementia mood stable, continue monitor for delirium DVT ppx: SQ Lovenox Dispo: med tele, will need PT/OT and likely to return to [facility] FULL CODE PCP: Dr. Shari Rosenbaum Patient is medically stable to return back to his assisted living facility pending PT/OT evaluation Admission and Anticipated Discharge Date Admission Date: June 10, 2021 Subjective Patient is pleasantly confused and family is present at bedside Reports he slept "too well" overnight, since getting up with increased cough. Remains on room air with no shortness of breath Physical Exam Physical Exam: Observed ambulating in room with no difficulty then sat in chair, pleasant and comfortable Respiratory: breathing comfortably on room air, no wheezing/rhonchi/rales Cardiovascular: regular rate and rhythm, no murmurs/rubs/gallops Gastrointestinal (Abdomen): soft, non tender, non distended Musculoskeletal: no edema Neurologic: Pleasantly demented Results & Data Results & Data ([facility]) Vital Signs (Past 12 Hours) Vital Signs Temp Pulse Pulse Resp BP BP Pulse Ox 06/11/21 11:08 36.5 C 90 20 143/95 H 93 06/11/21 07:41 37.1 C 85 20 159/76 H 95 06/11/21 07:16 112 H 20 94 Laboratory Results [facility] 06/11/21 05:58 Sodium 135 L Potassium 3.7 Chloride 99 Carbon Dioxide 30 BUN 18 Creatinine 0.84 Glucose 102 H Calcium 9.4 Medications Administered Current Inpatient Medications Acetaminophen (Acetaminophen 325 Mg Tab) 650 mg PO Q4H PRN PRN Reason: Pain or Fever Stop: 07/10/21 11:39 Al Hydrox/Mg Hydrox/Simethicone (Aluminum/Magnesium Susp 30 Ml Udc) 15 ml PO Q4H PRN PRN Reason: Dyspepsia Stop: 07/10/21 11:39 Albuterol (Albut/Ipratrop 3mg/0.5mg Neb 3 Ml Vial) 3 ml NEB Q6R MIGUEL Stop: 07/11/21 12:59 Last Admin: 06/11/21 13:00 Dose: Not Given Documented by: Atorvastatin Calcium (Atorvastatin 20 Mg Tab) 20 mg PO QPM MIGUEL Stop: 07/10/21 20:59 Last Admin: 06/10/21 20:31 Dose: 20 mg Documented by: Azithromycin (Azithromycin 250 Mg Tab) 250 mg PO QAM [facility] Stop: 06/16/21 09:01 Benzonatate (Benzonatate 100 Mg Capsule) 100 mg PO TID [facility] Stop: 07/10/21 13:59 Last Admin: 06/11/21 08:52 Dose: 100 mg Documented by: Budesonide (Budesonide 0.5 Mg/2 Ml Vial (Pulmicort)) 0.5 mg NEB BIDR [facility] Stop: 07/10/21 18:59 Last Admin: 06/11/21 07:11 Dose: 0.5 mg Documented by: Donepezil HCl (Donepezil Hcl 10 Mg Tab) 10 mg PO HS [facility] Stop: 07/10/21 20:59 Last Admin: 06/10/21 20:31 Dose: 10 mg Documented by: Enoxaparin Sodium (Enoxaparin Inj 40 Mg/0.4 Ml Syr) 40 mg SQ QAM [facility] Stop: 07/11/21 08:59 Last Admin: 06/11/21 08:53 Dose: Not Given Documented by: Fluticasone Propionate (Fluticasone Propionate Na Spr 16 Gm Btl) 2 sprays OG DAILY [facility] Stop: 07/10/21 12:29 Last Admin: 06/11/21 08:53 Dose: Not Given Documented by: Formoterol Fumarate (Formoterol 20 Mcg/2 Ml Vial) 20 mcg NEB BIDR [facility] Stop: 07/10/21 18:59 Last Admin: 06/11/21 07:11 Dose: Not Given Documented by: Furosemide (Furosemide 40 Mg Tab) 40 mg PO DAILY@0830 [facility] Stop: 07/11/21 08:29 Last Admin: 06/11/21 08:53 Dose: 40 mg Documented by: Furosemide (Furosemide 20 Mg Tab) 20 mg PO DAILY@1500 [facility] Stop: 07/10/21 14:59 Last Admin: 06/10/21 16:39 Dose: 20 mg Documented by: Guaifenesin (Guaifenesin 600 Mg Tabcr) 600 mg PO Q12 [facility] Stop: 07/10/21 20:59 Last Admin: 06/11/21 08:53 Dose: 600 mg Documented by: Methylprednisolone 20 mg/ (Syringe) 0.32 mls @ 1.5 mls/min IV TID [facility] Stop: 07/11/21 08:59 Last Admin: 06/11/21 09:25 Dose: 1.5 mls/min Documented by: Levothyroxine Sodium (Levothyroxine Sodium 125 Mcg Tablet) 125 mcg PO DAILYBB [facility] Stop: 07/11/21 06:29 Last Admin: 06/11/21 05:54 Dose: 125 mcg Documented by: Loratadine (Loratadine 10 Mg Tab) 10 mg PO DAILY [facility] Stop: 07/10/21 12:14 Last Admin: 06/11/21 08:54 Dose: 10 mg Documented by: Magnesium Hydroxide (Magnesium Hydroxide Susp 30 Ml Udc) 30 ml PO Q12H PRN PRN Reason: Constipation Stop: 07/10/21 11:39 Ondansetron HCl (Ondansetron Inj 2 Mg/Ml 2 Ml Vial) 4 mg IV Q6H PRN PRN Reason: Nausea Stop: 07/10/21 11:39 Polyethylene Glycol (Polyethylene (Miralax) 17 Gm Pack) 17 gm PO DAILY PRN PRN Reason: Constipation Stop: 07/10/21 11:39 Potassium Chloride (Potassium Chloride Crtab 20 Meq Tabcr) 20 meq PO QAM [facility] Stop: 07/10/21 12:14 Last Admin: 06/11/21 08:52 Dose: 20 meq Documented by: Risperidone (Risperidone 0.5 Mg Tablet) 0.25 mg PO HS PRN PRN Reason: agitation Stop: 07/10/21 20:59 Last Admin: 06/10/21 20:46 Dose: 0.25 mg Documented by:
[2021-06-11] MEDS: FUROSEMIDE 20 MG TAB PO SCH (15:08)
[2021-06-11] MEDS: DONEPEZIL HCL 10 MG TAB PO SCH (20:02)
[2021-06-11] MEDS: ATORVASTATIN 20 MG TAB PO SCH (20:03)
[2021-06-11] MEDS: risperiDONE 0.5 MG TABLET PO PRN (23:15)
[2021-06-12] MEDS: ALBUT/IPRATROP 3MG/0.5MG NEB 3 ML VIAL NEB SCH ×2 (00:08→07:01)
[2021-06-12] MEDS: LEVOTHYROXINE SODIUM 125 MCG TABLET PO SCH (06:34)
[2021-06-12] MEDS: BUDESONIDE 0.5 MG/2 ML VIAL (PULMICORT) NEB SCH (07:01)
[2021-06-12] MEDS: FORMOTEROL 20 MCG/2 ML VIAL NEB SCH (07:01)
[2021-06-12] MEDS: FUROSEMIDE 40 MG TAB PO SCH (08:14)
[2021-06-12] MEDS: guaiFENesin 600 MG TABCR PO SCH (08:14)
[2021-06-12] MEDS: LORATADINE 10 MG TAB PO SCH (08:14)
[2021-06-12] MEDS: BENZONATATE 100 MG CAPSULE PO SCH (08:14)
[2021-06-12] MEDS: methylPREDNISolone 20 MG in SYRINGE 0 ML IV SCH (08:15)
[2021-06-12] MEDS: FLUTICASONE PROPIONATE NA SPR 16 GM BTL NAE SCH (08:15)
[2021-06-12] MEDS: ENOXAPARIN INJ 40 MG/0.4 ML SYR SQ SCH (08:15)
[2021-06-12] MEDS: POTASSIUM CHLORIDE CRTAB 20 MEQ TABCR PO SCH (08:24)
--- NOTE | 2021-06-12 08:57 | Discharge Summary ---
Date of Service June 12, 2021 Admission HPI Per Admitting Provider This is a 75-year-old male who has significant past medical history of HTN, HLD, chronic HFpEF, hypothyroidism, COPD, dementia, NAM noncompliant with CPAP who presents from assisted living facility secondary to shortness of breath and cough x3 weeks. Patient complains of an increased productive cough with clear sputum x3 weeks. He also complains of increasing shortness of breath. He states he wakes up every morning at approximately 3 AM, "gasping for air." He denies any sick contacts. He does complain of increased wheezing. Patient's brother is at bedside. Patient history slightly unreliable secondary to underlying dementia, but brother able to provide accurate history. He denies any fever, chills, sweats, lightheadedness, dizziness, syncope, falls, chest pain, hemoptysis, nausea, vomiting, abdominal pain, changes bowel or urinary habits. He does have mild lower extremity swelling. At baseline he ambulates with a walker and is active at assisted living facility. He is vaccinated for COVID-19 and boosted. In route patient was found to be hypoxic at 85%. He received 2 albuterol nebulizer treatments and placed on nonrebreather at 3 L and is currently saturating at 96%. Chest x-ray was negative for acute abnormality. CBC and CMP were generally unremarkable. He did have elevation of CO2 on VBG but normal pH. His urinalysis was negative. He tested negative for SARS-CoV-2, influenza and RSV. It is likely patient is suffering from acute COPD exacerbation and he received IV steroids in ED. Principal Diagnosis Acute COPD exacerbation Acute hypoxic respiratory failure Delirium Discharge Exam Pleasantly demented, eating breakfast, breathing comfortably on room air, no wheezing/rhonchi/rales, able to speak in complete sentences with no difficulty Discharge Data Allergies Allergy/AdvReac Type Severity Reaction Status Date / Time No Known Allergies Allergy Unverified 06/10/21 07:11 Consultations 06/10/21 07:43 ED Decision to Admit Stat Hospital Course (1) COPD exacerbation: (2) Hypoxia: (3) Chronic heart failure with preserved ejection fraction (HFpEF): (4) Hypertension: (5) Dementia: This is a 75-year-old male who has significant past medical history of HTN, HLD, chronic HFpEF, hypothyroidism, COPD, dementia, NAM noncompliant with CPAP who presents from assisted living facility secondary to shortness of breath and cough x3 weeks. Acute COPD EXACERBATION Acute hypoxic respiratory failure -now on room air -on solumedrol here and discharged on prednisone taper -Scheduled Duoneb, budesonide and formoterol BID. Can continue home inhalers at discharge. Rx for nebulizer machine and Duoneb PRN for acute exacerbations -CXR negative for pneumonia but patient with increased cough and mucous production. Plan for 5 day course of azithromycin -night time cough--> started on pepcid for empiric treatment of acid reflux, he is already on flonase. Please follow up with PCP for further evaluation Chronic HFpEF HTN HLD Stable while here. Continued on home medications Hypothyroidism continue levothyroxine NAM does not use CPAP Dementia mood stable, continue On second night here, did develop delirium. Received 1 dose of PO risperdal DVT ppx: SQ Lovenox Total Time Total Time Spent Total Time Spent (In Minutes): 35 Discharge Plan Discharge Items Patient Disposition: [facility] Reason For Visit: COPD EXAC Discharge Diagnosis: Acute COPD exacerbation Acute hypoxic respiratory failure Delirium Activity: Resume your previous activity Non-emergency contact: Primary Care Provider Call non-emergency contact if: you have any medication questions and your symptoms worsen Follow-up/Referrals: Shari Rosenbaum MD [Primary Care Provider] - Diet: Regular Addtl Attending Provider Instructions: Please follow up with your primary care doctor about your night time cough. You may have acid reflux or post nasal drip You are already on flonase for poast nasal drip You were started on pepcid at bedtime for acid reflux Please follow up to see if your night time cough is improved You were treated for COPD exacerbation. You will go home on a short course of steroids and 4 more days of azithromycin. You will be given a prescription for nebulizer treatments to be used in times of flare ups Pending Studies at Discharge: No Stand-Alone Forms: My [employer], Smoking Cessation Skilled Items Patient informed of condition?: Yes DNR: No Discharge Level of Care: Other Communicable Disease: No Discharge Prognosis: Stable Lines: None Urinary Catheter: No Medications and DC Order Prescriptions: New ipratropium-albuterol 0.5 mg-3 mg(2.5 mg base)/3 mL Solution For Nebulization 3 ml NEB Q6R 30 Days Qty: 30 RF: 1 azithromycin 250 mg Tablet 250 mg PO QAM 4 Days Qty: 4 RF: 0 guaifenesin [Mucinex] 600 mg Tablet Extended Release 12hr 600 mg PO Q12 7 Days Qty: 14 RF: 0 famotidine [Pepcid] 20 mg tablet 20 mg PO HS Qty: 30 RF: 0 prednisone 5 mg tablet See Rx Instructions .ROUTE .COMPLEX Qty: 36 RF: 0 Continued atorvastatin 20 mg tablet 20 mg PO QPM RF: 0 potassium chloride 20 mEq tablet,ER particles/crystals 20 meq PO QAM RF: 0 levothyroxine 125 mcg tablet 125 mcg PO QAM RF: 0 fluticasone propionate 50 mcg/actuation spray,suspension 2 spray INTRANASAL DAILY RF: 0 One-A-Day Men's 50 Plus 400-20-370 mcg Tablet 1 tab PO QAM RF: 0 furosemide 40 mg tablet 40 mg PO .DAILY AT 830AM RF: 0 donepezil 10 mg Tablet 10 mg PO HS RF: 0 furosemide 20 mg tablet 20 mg PO .DAILY AT 3PM RF: 0 loratadine 10 mg Tablet 10 mg PO DAILY RF: 0 Spiriva Respimat 2.5 mcg/actuation mist 2 puff INHALATION DAILY RF: 0 ProAir RespiClick 90 mcg/actuation aerosol powdr breath activated See Rx Instructions .ROUTE .COMPLEX RF: 0 acetaminophen [Arthritis Pain Reliever] 650 mg Tablet Extended Release 650 mg PO Q8H MDD 3g PRN (Reason: Fever Or Pain) RF: 0 ProAir RespiClick 90 mcg/actuation aerosol powdr breath activated 2 inh INHALATION Q4 PRN (Reason: cough/wheezing) RF: 0 Saline Mist 0.65 % Aerosol,[place] 2 spray INTRANASAL BID PRN (Reason: Congestion) RF: 0 Discontinued ibuprofen 200 mg Tablet 200 mg PO AMPM RF: 0 Mucinex DM 30-600 mg Tablet Extended Release 12 Hr 1 tab PO Q12H PRN (Reason: Congestion) RF: 0 Discharge Orders: Discharge Order (Routine); Ordered 06/12/21 Ordered By: Tracy Crowell/Other Patient Handouts: COPD: Chronic Coughing, COPD: Coping with Mucus Admission Data Admit Date/Time: 06/10/21 08:38 Attending Provider: Tracy Brown Admit Provider: Tracy Brown Primary Care Provider: Shari Rosenbaum Other Providers: Tracy Brown
[2021-06-12] MEDS ORDERED: AZITHROMYCIN 250 MG TAB PO SCH (09:00)
== END 2021-06-12 12:59 | disposition home or self-care (01) | DRG 190 ==
LOC: ED 05:19 → EDINP 08:38 → 2N 10:14
DX: J96.01 Acute respiratory failure with hypoxia; Z91.19 Patient's noncompliance with other medical treatment and regimen; E03.9 Hypothyroidism, unspecified; I50.32 Chronic diastolic (congestive) heart failure; Z79.890 Hormone replacement therapy; E78.5 Hyperlipidemia, unspecified; I11.0 Hypertensive heart disease with heart failure; J44.1 Chronic obstructive pulmonary disease with (acute) exacerbation; G47.33 Obstructive sleep apnea (adult) (pediatric); F03.90 Unspecified dementia, unspecified severity, without behavioral disturbance, psychotic disturbance, mood disturbance, and anxiety